=== PATIENT | male | born 1970 | race Caucasian/White ===

== ENCOUNTER 2017-08-07 23:31 | Observation (INO) ==
[2017-08-07] MEDS ORDERED: Nitroglycerin 0.4 MG TAB.SUBL SL ONE (23:32)
[2017-08-07] MEDS ORDERED: Aspirin 81 MG TAB.CHEW PO ONE (23:32)
[2017-08-07 23:56] LABS: Basophils % 0.3 %; Eosinophils # 0.1 K/mcL (0.0-0.6); Eosinophils % 0.6 %; Hemoglobin 16.5 g/dL (12.9-16.9); Immature Granulocytes % 0.4 % (0-4); Lymphocytes # 2.5 K/mcL (0.6-4.6); Lymphocytes % 31.7 %; Mean Corpuscular HGB Conc 34.4 g/dL (31.6-35.5); Mean Corpuscular Hemoglobin 28.4 pg (28.0-33.3); Mean Corpuscular Volume 82.8 fL (83.0-100.0); Mean Platelet Volume 10.9 fL (9.4-12.4); Monocytes # 0.4 K/mcL (0.0-1.3); Monocytes % 5.2 %; Neutrophils # 4.8 K/mcL (1.6-8.9); Platelet Count 202 K/mcL (140-400); Red Cell Distribution Width 12.8 % (11.5-14.5); Segmented Neutrophils % 61.8 %
[2017-08-08 00:02] LABS: INR 1.1; Prothrombin Time 12.4 Seconds (9.4-12.1)
[2017-08-08 00:05] LABS: Activated Partial Thrombo Time 27.6 Seconds (26.0-36.0)
[2017-08-08 00:22] LABS: Alanine Aminotransferase 35 Units/L (0-55); Albumin 3.8 g/dL (3.5-5.0); Albumin/Globulin Ratio 1.1 (1.1-2.2); Alkaline Phosphatase 118 Units/L (38-126); Aspartate Amino Transferase 23 Units/L (5-34); BUN/Creatinine Ratio 18 (6-26); Bilirubin,Direct 0.3 mg/dL (0.0-0.5); Bilirubin,Indirect 0.5 mg/dL (0.0-1.2); Bilirubin,Total 0.8 mg/dL (0.2-1.2); Blood Urea Nitrogen 19 mg/dL (8-26); Calcium 9.3 mg/dL (8.6-10.8); Carbon Dioxide 21 mEq/L (19-29); Chloride 103 mEq/L (98-109); Globulin 3.6 g/dL (2.4-3.5); Glucose 278 mg/dL (70-99); Lipase 13 Units/L (8-78); Osmolality,Calculated 294 (280-300); Sodium 136 mEq/L (136-145); Total Protein 7.4 g/dL (6.0-8.3); eGFR For African Americans > 60 (> 60); eGFR For Non-African Americans > 60 (> 60)
--- NOTE | 2017-08-08 00:25 | Emergency Department Note ---
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 Denies: nausea, vomiting , diaphoresis, dyspnea, sense of impending doom, syncope, palpitations, fever, cough, leg swelling Treatments prior to arrival chest pain: aspirin (per EMS) - Related Data Allergies Allergy/AdvReac Type Severity Reaction Status Date / Time Cyclobenzaprine Allergy Hallucinati Verified 08/08/17 00:15 [From Flexeril] ng Penicillins Allergy See Verified 08/08/17 00:15 Comments All systems ED: reviewed and negative except as stated. Review of Systems: As Per HPI Constitutional: Denies: fever, chills, weakness, weight change, night sweats Eyes: Denies: eye pain, eye discharge, vision change ENT ED: Denies: ear pain, throat pain, congestion, dysphagia Cardiovascular: Reports: as per HPI, chest pain. Denies: palpitations, dyspnea on exertion, orthopnea, edema, syncope Respiratory: Denies: cough, dyspnea, wheezes Gastrointestinal: Denies: abdominal pain, nausea, vomiting Musculoskeletal: Denies: back pain, neck pain, joint swelling Neurological: Denies: headache, weakness, numbness, paresthesias, confusion, abnormal gait, vertigo Hematological/Lymphatic: Denies: easy bleeding, easy bruising, lymphadenopathy Chest Pain PMH - Past Medical History Medical history: Reports: diabetes, hyperlipidemia Surgical history: Reports: no surgical history Psychiatric history: Reports: no psych history Prior Cardiac Testing/Procedures: Stress Test (10 years ago) - Social History Smoking Status: Never smoker Smokeless Tobacco Status: No Drug use: Reports: none Physical Exam - General Limitations: no limitations General appearance: alert, in no apparent distress - Head Head exam: atraumatic, normocephalic, normal inspection - Eye Eye exam: Present: normal appearance, PERRL. Absent: scleral icterus, conjunctival injection, periorbital swelling - ENT ENT exam: mucous membranes moist - Neck Neck exam: Present: normal inspection, full ROM, trachea midline. Absent: meningismus - Chest Chest inspection: Present: normal inspection - Respiratory Respiratory exam: Present: normal lung sounds bilaterally. Absent: respiratory distress, wheezes, stridor, accessory muscle use - Cardiovascular Cardiovascular exam: Present: regular rate, normal rhythm, normal heart sounds - Abdominal Exam Abdominal exam: Present: soft, Non-Tender. Absent: tenderness, distention, guarding, rebound, rigidity, organomegaly, Maldonado's sign, tenderness at McBurney 's Point, mass, pulsatile mass - Extremities Exam Extremities exam: Present: normal inspection, full ROM, normal capillary refill. Absent: tenderness, pedal edema, joint swelling - Back Exam Back exam: Present: normal inspection - Neurological Exam Neurological exam: Present: alert, oriented X3, CN II-XII intact, normal gait - Psychiatric Psychiatric exam: Present: normal affect, normal mood - Skin Skin exam: Present: warm, dry, intact, normal color Course - Reevaluation(s) Reevaluation #1: pain is better "/" patient refused second NTG b/c BP 110 systolic. Time: 00:43 Vital Signs Pulse Rate 89 08/08/17 00:18 Respiratory Rate 16 08/08/17 00:18 Blood Pressure 113/81 08/08/17 00:18 O2 Sat by Pulse Oximetry 95 08/08/17 00:18 Temperature 97.5 F L 08/08/17 02:32 Pulse Rate 82 08/08/17 02:32 Respiratory Rate 12 08/08/17 02:32 Blood Pressure 111/75 08/08/17 02:32 O2 Sat by Pulse Oximetry 95 08/08/17 02:32 Oxygen Delivery Oxygen Delivery Room Air Chest Pain - Medical Records Medical records reviewed: Yes I reviewed the patient's medical records. - Lab Data Lab results reviewed: Yes I reviewed the patient's lab results. Lab results narrative: Laboratory Last Values WBC 7.7 K/mcL (4.3-11.1) 08/07/17 23:44 RBC 5.80 M/mcL (4.19-5.50) H 08/07/17 23:44 Hgb 16.5 g/dL (12.9-16.9) 08/07/17 23:44 Hct 48.0 % (37.5-50.1) 08/07/17 23:44 MCV 82.8 fL (83.0-100.0) L 08/07/17 23:44 MCH 28.4 pg (28.0-33.3) 08/07/17 23:44 MCHC 34.4 g/dL (31.6-35.5) 08/07/17 23:44 RDW 12.8 % (11.5-14.5) 08/07/17 23:44 Plt Count 202 K/mcL (140-400) 08/07/17 23:44 MPV 10.9 fL (9.4-12.4) 08/07/17 23:44 Immature Gran % 0.4 % (0-4) 08/07/17 23:44 Seg Neutrophils % 61.8 % 08/07/17 23:44 Lymphocytes % 31.7 % 08/07/17 23:44 Monocytes % 5.2 % 08/07/17 23:44 Eosinophils % 0.6 % 08/07/17 23:44 Basophils % 0.3 % 08/07/17 23:44 Neutrophils # 4.8 K/mcL (1.6-8.9) 08/07/17 23:44 Lymphocytes # 2.5 K/mcL (0.6-4.6) 08/07/17 23:44 Monocytes # 0.4 K/mcL (0.0-1.3) 08/07/17 23:44 Eosinophils # 0.1 K/mcL (0.0-0.6) 08/07/17 23:44 Basophils # 0.0 K/mcL (0.0-0.2) 08/07/17 23:44 PT 12.4 Seconds (9.4-12.1) H 08/07/17 23:44 INR 1.1 08/07/17 23:44 APTT 27.6 Seconds (26.0-36.0) 08/07/17 23:44 Sodium 136 mEq/L (136-145) 08/07/17 23:44 Potassium 4.0 mEq/L (3.5-4.5) 08/07/17 23:44 Chloride 103 mEq/L (98-109) 08/07/17 23:44 Carbon Dioxide 21 mEq/L (19-29) 08/07/17 23:44 BUN 19 mg/dL (8-26) 08/07/17 23:44 Creatinine 1.06 mg/dL (0.72-1.25) 08/07/17 23:44 Est GFR ( Amer) > 60 (> 60) 08/07/17 23:44 Est GFR (Non-Af Amer) > 60 (> 60) 08/07/17 23:44 BUN/Creatinine Ratio 18 (6-26) 08/07/17 23:44 Glucose 278 mg/dL (70-99) H 08/07/17 23:44 POC Glucose 242 (58-89) H 08/08/17 02:36 Calculated Osmolality 294 (280-300) 08/07/17 23:44 Calcium 9.3 mg/dL (8.6-10.8) 08/07/17 23:44 Total Bilirubin 0.8 mg/dL (0.2-1.2) 08/07/17 23:44 Direct Bilirubin 0.3 mg/dL (0.0-0.5) 08/07/17 23:44 Indirect Bilirubin 0.5 mg/dL (0.0-1.2) 08/07/17 23:44 AST 23 Units/L (5-34) 08/07/17 23:44 ALT 35 Units/L (0-55) 08/07/17 23:44 Alkaline Phosphatase 118 Units/L (38-126) 08/07/17 23:44 Troponin I 0.00 ng/mL (0-0.03) 08/07/17 23:44 Serum Total Protein 7.4 g/dL (6.0-8.3) 08/07/17 23:44 Albumin 3.8 g/dL (3.5-5.0) 08/07/17 23:44 Globulin 3.6 g/dL (2.4-3.5) H 08/07/17 23:44 Albumin/Globulin Ratio 1.1 (1.1-2.2) 08/07/17 23:44 Lipase 13 Units/L (8-78) 08/07/17 23:44 Result diagrams: 08/07/17 23:44 08/07/17 23:44 Lab Results 08/07/17 08/07/17 08/07/17 Range/Units 23:44 23:44 23:44 WBC 7.7 (4.3-11.1) K/mcL RBC 5.80 H (4.19-5.50) M/mcL Hgb 16.5 (12.9-16.9) g/dL Hct 48.0 (37.5-50.1) % MCV 82.8 L (83.0-100.0) fL MCH 28.4 (28.0-33.3) pg MCHC 34.4 (31.6-35.5) g/dL RDW 12.8 (11.5-14.5) % Plt Count 202 (140-400) K/mcL MPV 10.9 (9.4-12.4) fL Immature Gran % 0.4 (0-4) % Seg Neutrophils % 61.8 % Lymphocytes % 31.7 % Monocytes % 5.2 % Eosinophils % 0.6 % Basophils % 0.3 % Neutrophils # 4.8 (1.6-8.9) K/mcL Lymphocytes # 2.5 (0.6-4.6) K/mcL Monocytes # 0.4 (0.0-1.3) K/mcL Eosinophils # 0.1 (0.0-0.6) K/mcL Basophils # 0.0 (0.0-0.2) K/mcL PT 12.4 H (9.4-12.1) Seconds INR 1.1 APTT 27.6 (26.0-36.0) Seconds Sodium 136 (136-145) mEq/L Potassium 4.0 (3.5-4.5) mEq/L Chloride 103 (98-109) mEq/L Carbon Dioxide 21 (19-29) mEq/L BUN 19 (8-26) mg/dL Creatinine 1.06 (0.72-1.25) mg/dL Est GFR ( Amer) > 60 (> 60) Est GFR (Non-Af Amer) > 60 (> 60) BUN/Creatinine Ratio 18 (6-26) Glucose 278 H (70-99) mg/dL Calculated Osmolality 294 (280-300) Calcium 9.3 (8.6-10.8) mg/dL Total Bilirubin 0.8 (0.2-1.2) mg/dL Direct Bilirubin 0.3 (0.0-0.5) mg/dL Indirect Bilirubin 0.5 (0.0-1.2) mg/dL AST 23 (5-34) Units/L ALT 35 (0-55) Units/L Alkaline Phosphatase 118 (38-126) Units/L Troponin I (0-0.03) ng/mL Serum Total Protein 7.4 (6.0-8.3) g/dL Albumin 3.8 (3.5-5.0) g/dL Globulin 3.6 H (2.4-3.5) g/dL Albumin/Globulin Ratio 1.1 (1.1-2.2) Lipase 13 (8-78) Units/L // Range/Units 23:44 WBC (4.3-11.1) K/mcL RBC (4.19-5.50) M/mcL Hgb (12.9-16.9) g/dL Hct (37.5-50.1) % MCV (83.0-100.0) fL MCH (28.0-33.3) pg MCHC (31.6-35.5) g/dL RDW (11.5-14.5) % Plt Count (140-400) K/mcL MPV (9.4-12.4) fL Immature Gran % (0-4) % Seg Neutrophils % % Lymphocytes % % Monocytes % % Eosinophils % % Basophils % % Neutrophils # (1.6-8.9) K/mcL Lymphocytes # (0.6-4.6) K/mcL Monocytes # (0.0-1.3) K/mcL Eosinophils # (0.0-0.6) K/mcL Basophils # (0.0-0.2) K/mcL PT (9.4-12.1) Seconds INR APTT (26.0-36.0) Seconds Sodium (136-145) mEq/L Potassium (3.5-4.5) mEq/L Chloride (98-109) mEq/L Carbon Dioxide (19-29) mEq/L BUN (8-26) mg/dL Creatinine (0.72-1.25) mg/dL Est GFR ( Amer) (> 60) Est GFR (Non-Af Amer) (> 60) BUN/Creatinine Ratio (6-26) Glucose (70-99) mg/dL Calculated Osmolality (280-300) Calcium (8.6-10.8) mg/dL Total Bilirubin (0.2-1.2) mg/dL Direct Bilirubin (0.0-0.5) mg/dL Indirect Bilirubin (0.0-1.2) mg/dL AST (5-34) Units/L ALT (0-55) Units/L Alkaline Phosphatase (38-126) Units/L Troponin I 0.00 (0-0.03) ng/mL Serum Total Protein (6.0-8.3) g/dL Albumin (3.5-5.0) g/dL Globulin (2.4-3.5) g/dL Albumin/Globulin Ratio (1.1-2.2) Lipase (8-78) Units/L - Radiology Data Radiology results reviewed: Yes I reviewed the patient's radiology results. Chest X-Ray 08/07/17 23:32 IMPRESSION: 1. No acute cardiopulmonary disease. D/ / Alfonso Eaton MD / Alfonso Eaton MD Interpreting Provider: Alfonso Eaton MD Heart Score - Score History: Moderately Suspicious EKG: Non Specific repolarisation Disturbance Age: 45-65 Risk Factors: 1-2 risk factors Troponin: Less than normal limit HEART Score Total: 4 Attestation Statement - Attestation Attestation: I, Matias Peters MD, personally evaluated this patient and discussed their management with the midlevel provicer, PAC/PROJECT PRODUCT MANAGER. I reviewed the midlevel provider 's note and agree with the documented findings, medical decision making, and plan of care. 47-year-old male presents to the emergency department with a complaint of mid substernal chest pain which started earlier this evening while at work. 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 No radiation of the pain. Some nausea with the pain. Some shortness of breath and mild diaphoresis. No history of heart disease but patient is not diabetic. No history of hypertension or hyperlipidemia. On examination patient is a well-developed obese male in no acute distress. He is alert and oriented 3. There is no cyanosis or diaphoresis. There is some tenderness to palpation over the mid anterior chest wall. Breath sounds are clear and equal bilaterally. Heart regular rate and rhythm. Abdomen soft and nontender with normal bowel sounds. No pedal edema. Labs reviewed. Troponin negative. EKG shows a normal sinus rhythm with no acute ischemic changes. Chest x-ray negative. The hospitalist, Dr. Garcia, was consulted and accepted admission of the patient.
[2017-08-08] MEDS ORDERED: *HR* Enoxaparin 120 MG/0.8 ML SYRINGE SQ ONE (01:34)
--- NOTE | 2017-08-08 01:40 | Internal Med History&Physical ---
Date of Encounter: 08/08/17 Time of Encounter: 01:36 Assessment and Plan (1) Diabetes mellitus type 2 in obese Current visit: Yes Status: Acute Sliding scale insulin. Check hemaglobin A1C (2) Chest pain Current visit: Yes Status: Acute Electrocardiogram shows Q waves in inferior leads but no ST segment shifts. Will check serial cardiac markers. Cardiology service to see the patient. Qualifiers: Chest pain type: precordial pain Qualified Code(s): R07.2 - Precordial pain Internal Medicine - H&P: HPI Chief complaint: chest pain History of present illness: Mr. Wood is a 47 year old male who was morbidly obese with a body mass index of 40 kg/m, diabetes mellitus type II on insulin since the age of 32, presents to the emergency room today with a couple of chest pain. Since approximately 11 PM patient started experiencing retrosternal chest pain described as having the sensation pain was nonirritating. He felt lightheaded during the pain. He took sublingual nitroglycerin with notable improvement in the pain. He was still having 2 out of 10 pain during my interview. No prior similar episodes. No known coronary artery disease. He does not smoke and does not have a family history of premature coronary or she is using first-degree relatives Past Med Surg Social Fam HX - Past Medical History Medical history: diabetes, hyperlipidemia Psychiatric history: no psych history - Social History Smoking Status: Never smoker Alcohol use: none Drug use: none Internal Medicine - H&P: Meds 3 Allergy/AdvReac Type Severity Reaction Status Date / Time Cyclobenzaprine Allergy Hallucinati Verified 08/08/17 00:15 [From Flexeril] ng Penicillins Allergy See Verified 08/08/17 00:15 Comments All Systems PM: A 10-system review of systems was performed and is negative for pertinent findings except as documented above in the HPI. Review of systems: 10 point review of systems is negative except for HPI - Constitutional Vitals: Temp Pulse Resp BP Pulse Ox 98.3 F 78 16 111/70 96 08/08/17 00:28 08/08/17 00:56 08/08/17 00:56 08/08/17 00:56 08/08/17 00:56 Exam: Gen.: patient is alert oriented times 3 not in distress. Cardiac: normal S1 S2 no additional sounds or murmurs chest: fair air entry. no active wheezing. No crackles or bronchial breathing. abdomen: soft nontender nondistended normal bowel sounds neuro: no focal deficit Internal Med - H&P Results - Labs CBC & Chem 7: 08/07/17 23:44 08/07/17 23:44
[2017-08-08] MEDS ORDERED: *HR* Enoxaparin 40 MG/0.4 ML SYRINGE SQ SCH (06:00)
[2017-08-08] MEDS: Insulin LISPRO 300 UNITS/3 ML VIAL SQ SCH ×3 (07:54→17:15)
[2017-08-08] MEDS: Aspirin 325 MG TABLET PO SCH (07:56)
[2017-08-08] MEDS ORDERED: Regadenoson 0.4 MG/5 ML SYRINGE IVP ONE (09:22)
--- NOTE | 2017-08-08 10:53 | Internal Med Progress Note ---
Date of Encounter: 08/08/17 Time of Encounter: 08:50 - Assessment and plan (1) Chest pain Current Visit: Yes Status: Acute Assessment and plan: Pt reports sudden onset left chest pain last night at 2300 after using the bathroom. Pain was sharp, did not radiate. Pt denies SOB, nausea, or diaphoresis. Pain lasted approximately 1 hour and was relieved by NTG in the ED. Pt still reports 2/10 chest pain currently. Pain is reproducible with palpation and deep inspiration. 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 troponins negative, chest xray negative. Pt is a 2 day stress. Continue telemetry Stress today, complete tomorrow ASA, ntg for pain. Lipid pain in the a.m. Qualifiers: Chest pain type: precordial pain Qualified Code(s): R07.2 - Precordial pain (2) Diabetes mellitus type 2 in obese Current Visit: Yes Status: Chronic Assessment and plan: Continue SSI, diabetic diet, and accuchecks ac/hs. A1c 9.5% in December,. Will reorder for the a.m. (3) Obesity (BMI 30-39.9) Current Visit: Yes Status: Chronic Assessment and plan: Chronic. Lifestyle modifications. (4) DVT prophylaxis Current Visit: Yes Status: Acute Assessment and plan: Lovenox sQ - Time Spent With Patient less than 15 minutes - Subjective Interval history: Pt was seen and assessed at 0850 this a.m. He was drowsy and easy to arouse, briefly. Pt has 2/10 chest pain at this time that is reproducible with palpation and deep inspiration. He denies sob, nausea, diaphoresis, headache, v/ d, abdominal pain or neck stiffness. Denies recent cough or cold symptoms or sick contacts. Denies change in physical routine. - Constitutional Vitals: Temp Pulse Resp BP Pulse Ox 98.3 F 66 15 130/84 92 08/08/17 07:42 08/08/17 07:42 08/08/17 07:42 08/08/17 07:42 08/08/17 07:42 General appearance: Present: A&O X 3, pleasant, no acute distress, answers questions appropriately - Head Head exam: Present: atraumatic, normal inspection, normocephalic - Eye Eye exam: Present: normal appearance, conjuntiva pink, sclera anicteric - ENT ENT exam: Present: mucous membranes moist, normal exam, normal external ear exam - Neck Neck exam general surgery: Present: supple, trachea midline. Absent: lymphadenopathy - Respiratory Respiratory exam: Present: chest wall tenderness, CTAB. Absent: accessory muscle use, decreased breath sounds, rales, rhonchi, wheezes - Cardiovascular Cardiovascular exam: Present: RRR, +S1, +S2. Absent: diastolic murmur, gallop, rubs, systolic murmur - GI/Abdominal GI/Abdominal exam: Present: distended, normal bowel sounds, soft. Absent: tenderness - Extremities Exam Extremities exam: Present: warm, radial pulses palpable and symmetrical. Absent : calf tenderness, cyanotic, pedal edema - Neurological Exam Neurological exam: Present: alert, oriented X3, no focal deficits. Absent: facial droop, speech deficit - Skin Skin exam: Present: dry, intact, normal color, warm. Absent: rash Internal Medicine: Result - Labs CBC & Chem 7: 08/07/17 23:44 08/07/17 23:44 Labs: Cardiac Enzymes 08/08/17 Range/Units 05:36 Troponin I 0.00 (0-0.03) ng/mL - ABG Interpretation ABG results: PT/INR, D-dimer PT 12.4 Seconds (9.4-12.1) H 08/07/17 23:44 Consult Discharge Plan - Plan Referrals: Monse Spaulding DO [Primary Care Provider] -
--- NOTE | 2017-08-08 19:16 | Electrocardiograph Report ---
[address] [place] [address] Test Date: 2017-08-07 Pat Name: Archie Wood Department: 103 Room: 3B22 Gender: M Automated Access Systems Technician: : 1970 Requested By: Katherine Ortiz Order Number: [id number] Reading MD: Alo Theodore MD Measurements Intervals [place] Rate: 97 P: 21 OR: 137 QRS: -24 QRSD: 104 T: 17 QT: 321 QTc: 375 Interpretive Statements SINUS RHYTHM Poor R wave progression INFERIOR MYOCARDIAL INFARCTION, PROBABLY OLD Electronically Signed On 08-08-2017 19:15:23 EDT by Alo Theodore MD
[2017-08-09 04:06] LABS: Hemoglobin A1C 10.6 %
[2017-08-09] MEDS: Insulin LISPRO 300 UNITS/3 ML VIAL SQ SCH ×3 (07:53→16:19)
[2017-08-09] MEDS: Aspirin 325 MG TABLET PO SCH (07:53)
--- NOTE | 2017-08-09 09:24 | Nuclear Medicine Stress Report ---
Regadenoson Nuclear 2 day Name: Archie Wood Date of Study: 08/08/2017 Date: 1970 Ht: 69.0 in Medical Record#: [id number] Age: 47 Wt: 265.0 lb Gender: Male Order #: [id number] Location: [facility] Room: [facility] Supervising Provider: Karina Llamas CNP Reading Physician: Erin Borjas DO Ordering Physician: Dipika Mcdonald CNP Stress Technologist: Ambika Oquendo [employer] TE[employer], [employer] Age Lead Teacher: Sowmya Aguirre Indications: Chest Pain Impression: Basal-mid inferior and inferolateral wall infarct with significant shani-infarct ischemia. Pharmacologic ECG was negative for ischemia at the level of heart rate achieved. Gated EF = 54%. There is evidence of TID. Abnormal findings communicated to ordering provider. History: Hypertension Diabetes Stress Test Summary: Stress Test Type: Pharmacologic Regadenoson 0.4mg/5ml given IV Baseline Information: Initial Heart Rate: 80 Blood Pressure: 142/90 Stress Information: Test Terminated Due to (primary): As per protocol Maximum Blood Pressure: 146/88 Maximum Heart Rate: 93 Percent Maximum Heart Rate Achieved: 53 Double Product: [id number] METS Reached: 1 Symptoms: No chest symptoms Nuclear Summary: SPECT myocardial perfusion imaging using Tc99m Sestamibi given intravenously was performed at rest and following cardiac stress testing. The resting images were obtained following initial dose of 34.5 mCi. Following stress an additional dose of 35.5 mCi was given at peak exercise or 30 seconds post regadenoson infusion. Medication Given: Time Medication Dose Units Route Findings: Stress Note * Resting ECG demonstrated normal sinus rhythm with leftward axis and poor R wave progression with possible old inferior OH. * No appreciable change in pharmacologic ECG during stress. * Rare PACs noted during stress. * Patient had no chest pain during stress. Hemodynamic responses * Normal hemodynamic responses to pharmacologic stress. Study Quality * Study performance quality is good. Image quality is technically challenging. Gated EF % * Gated EF = 54%. Left Ventricle * The left ventricle is not dilated. TID * There is transient ischemic dilatation. Lung Uptake * There is no evidence of increase lung uptake. PERFUSION * There is a moderate intensity resting perfusion defect involving the basal inferior and inferolateral de la cruz with mild intensity in the mid inferior and inferolateral de la cruz. During stress, there is a moderate-severe intensity perfusion defect involving the basal to distal inferior and inferolateral de la cruz. Wall motion is abnormal in this area. Findings represent infarct with shani-infarct ischemia. * Other segments demonstrate normal rest and stress perfusion. Updated by Erin Borjas on 08/09/2017 9:12:38 AM electronically signed on 08/09/2017 9:18:04 AM with status of Final
--- NOTE | 2017-08-09 11:24 | Cardiology Consult Note ---
Date of Encounter: 08/09/17 Time of Encounter: 11:20 Assessment and Plan (1) Abnormal stress test Current Visit: Yes Status: Acute Stress test reviewed with patient. Stress shows prior basal- mid inferolateral wall infarct with significant shani-infarct ischemia. There was evidence of TID. EKG shows NSR with prior inferior and anterior infarct. Patient denies history of CAD. No prior evaluation. Describes intermittent chest pain over the past year. Cardiac risk factors include IDDM, HLD, and obesity. [facility] R/B/A discussed and he agrees to proceed. (2) Chest pain Current Visit: Yes Status: Acute See plan above. Qualifiers: Chest pain type: unspecified Qualified Code(s): R07.9 - Chest pain, unspecified (3) Diabetes mellitus type 2 in obese Current Visit: Yes Status: Chronic Hospitalist following. Discussion w patient/family: The assessment and plan as outlined above was discussed with the patient and/or family members who expressed understanding and agreement. All questions were answered. Thank you for involving us in the care of your patient. Please call with any questions. History of Present Illness Consult date: 08/09/17 Requesting physician: Dipika Mcdonald Consult reason: Chest pain, abnormal stress Chief complaint: Chest pain History of present illness: Mr. Wood is a 47 year old male with a history of DM type II, HLD, and obesity who presented from his work with mid sternal non radiating chest pain and dizziness. 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 He was walking down a hallway when his symptoms started. He reports having pain intermittently all weekend. Prior to that he reports intermittent chest pain November through January of this year. He attributed it to bronchitis that would not go away. 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 His initial work-up included troponin that was negative. EKG showed SR, prior anterior/ inferior infarct. There was no acute ST changes. He underwent two day stress test that was found to be abnormal. Cardiology consulted for abnormal stress test. He denies prior cardiac history. Past Med Surg Social Fam HX - Past Medical History Medical history: diabetes, hyperlipidemia Psychiatric history: no psych history - Past Surgical History Surgical History: no surgical history - Social History Smoking Status: Never smoker Smokeless Tobacco Status: No Alcohol use: none Drug use: none - Family History Mother Living Status: Still Living Medications and Allergies No Known Home Drugs 08/09/17 [History] 3 Allergy/AdvReac Type Severity Reaction Status Date / Time Cyclobenzaprine Allergy Hallucinati Verified 08/08/17 00:15 [From Flexeril] ng Penicillins Allergy See Verified 08/08/17 00:15 Comments All Systems Review: A 10-system review of systems was performed and is negative for pertinent findings except as documented above in the HPI. Physical Examination Chest X-Ray 08/07/17 23:32 IMPRESSION: 1. No acute cardiopulmonary disease. D/ / Alfonso Eaton MD / Alfonso Eaton MD Interpreting Provider: Alfonso Eaton MD Vital Signs Temp Pulse Resp BP Pulse Ox 08/09/17 11:26 98.2 F 86 16 155/97 95 08/09/17 06:43 98.1 F 70 16 131/84 94 08/09/17 04:11 98 F 61 16 109/70 96 08/09/17 00:14 98 F 70 16 129/80 96 08/08/17 19:03 98.2 F 76 16 129/81 94 08/08/17 16:21 98.0 F 70 16 115/70 97 Intake and Output 08/08/17 08/09/17 08/09/17 23:59 07:59 15:59 Intake Total 240 / 240 Balance 240 / 240 Intake: Oral 240 / 240 Other: Meal Breakfast Percent of Meal Consumed 100% # Voids 1 Weight 121.563 kg Blood Glucose* 170 217 268 Patient Weight 08/09/17 23:59 Weight 121.563 kg General: Conversant, No Apparent Distress HEENT: Atraumatic, Normocephaly, Mucus Membranes Moist Neck: No JVD, Normal carotid pulses Cardiac: Reg Rate and Rhythm, Normal S1 and S2, No Murmur Lungs: Normal Breath Sounds, No Wheeze, Rales, Rhonchi Neuro: Alert and responsive, No focal deficits noted Abdomen: Soft, Non-Tender Skin: No rashes noted on visualized skin Musculoskeletal: No Chest Wall Tenderness Extremities: No Clubbing, No Cyanosis, No Edema, Normal Pulses Results 08/07/17 23:44 08/07/17 23:44 Lab Results 08/08/17 11:58 Troponin I 0.01 - Imaging and Cardiology Stress Test: report reviewed Consult Discharge Plan - Plan Referrals: Monse Spaulding DO [Primary Care Provider] -
--- NOTE | 2017-08-09 11:29 | Pre-Sedation Evaluation ---
Pre-sedation evaluation - Pre-sedation checklist Date of procedure: 08/09/17 Procedure: [facility] Recent Vitals: Last Vital Signs Temp 98.1 F 08/09/17 06:43 Pulse 70 08/09/17 06:43 Resp 16 08/09/17 06:43 BP 131/84 08/09/17 06:43 Pulse Ox 94 08/09/17 06:43 H&P (including ROS) documented in medical record: Yes Previous reaction to sedatives/anesthetics: No Dietary Status: NPO after Midnight Airway Assessment: Patient can open mouth completely, TMJ function normal ASA Classification *see protocol: CLASS II-Mild systemic disease Plan of Care: Pt appropriate candidate for procedure/moderate/conscious sedation , Risks/benefits of procedure/sedation discussed w/ patient/family
[2017-08-09] MEDS ORDERED: Heparin 1,000 UNITS/500 mL NS 500 ML ONE (13:10)
[2017-08-09] MEDS ORDERED: 0.9 % Sodium Chloride 1,000 ML ONE ×2 (13:10→13:45)
[2017-08-09] MEDS ORDERED: Nitroglycerin 1,000 MCG/10 ML VIAL IV ONE (13:11)
[2017-08-09] MEDS ORDERED: *HR* Heparin 10,000 UNIT/10 ML VIAL ONE (13:11)
[2017-08-09] MEDS ORDERED: *HR* FentaNYL (PF) 100 MCG/2 ML VIAL ONE (13:57)
[2017-08-09] MEDS ORDERED: *HR* Midazolam HCl 2 MG/2 ML VIAL ONE ×2 (13:57→14:19)
--- NOTE | 2017-08-09 14:48 | Invasive Diagnostic Lab Proc ---
Name: Archie Wood Date of Study: 08/09/2017 Date: 1970 Ht: 68.9in Medical Record#: [id number] Age: 47 Wt: 266.54lb Gender: Male BSA: 2.33 Order #: [id number] BMI: 39.48 Physicians Procedure Physician: Alo Theodore MD, [facility] Referring MD: Monse Spaulding DO Referring MD: Staff Name Position Time In Marine Brennan RT (R) Scrub 01:18 PM Denise Waterman RN Practicing Urologist 01:18 PM Susana Aguirre RN Practicing Urologist 01:19 PM Jas Acosta RT (R) Monitor 01:19 PM Indications Indication Abnormal Test - Stress Procedures Performed Procedure L HRT ARTERY/VENTRICLE ANGIO Pre-Procedure Checklist Informed consent is complete signed and on chart. H&P is on chart. ID band is on and ID verified with patient. Patient NPO for procedure The procedure was described for the patient and questions were answered. Blood Pressure: 131/84 ECG is on chart. Rhythm: NSR Plan of Care Patient will tolerate the procedure without complications. Adequate level of comfort will be maintained. Hemodynamics will remain stable Patient will recover from procedure without complications. Respiratory function will be maintained. Cardiac rhythm will remain stable. Patient temperature will be maintained. Patient and/or family have verbalized understanding of the procedure. Patient Education Chief Complaint/Reason for Test: Cardiac Cath Developmental Category: Adult (18-64 years) Developmentally Appropriate for Age: Yes Learning Barriers: None Education Needs: Procedure Education Method: Verbal Information Taught: Cardiac Cath Educational Evaluation: Able to repeat information Intravenous Access Time IV Size Location DC'd Fluid/Drip Rate Units RN 01:55 PM 18g 1 11/11" Patent On Arrival Left forearm 0.9NaCl 25 ml/hr Susana Aguirre RN Allergies Cyclobenzaprine Bupropion Penicillins Vital Signs Time BP (mmHg) HR (bpm) O2 Sat. RR (bpm) LOC 01:55 PM 131 / 84 70 95 % 16 5 = Fully awake and oriented or at pre-proc level 01:42 PM / % 5 = Fully awake and oriented or at pre-proc level 01:42 PM / % 4 = Oriented but drowsy 01:58 PM / % 4 = Oriented but drowsy 02:15 PM / % 4 = Oriented but drowsy 01:56 PM 165 / 88 74 96 % 18 02:00 PM 150 / 105 83 95 % 20 02:04 PM 142 / 83 74 94 % 14 02:09 PM 125 / 82 74 91 % 17 02:14 PM 121 / 80 67 93 % 16 02:19 PM 130 / 75 66 94 % 19 02:24 PM 118 / 75 74 93 % 18 02:29 PM 117 / 78 71 92 % 20 02:34 PM 125 / 74 68 94 % Procedural Medications Time Medication Dose Units Method Given By 01:58 PM Versed 2 mg Intravenous Denise Waterman RN 01:58 PM Fentanyl 50 mcg Intravenous Denise Waterman RN 01:58 PM Oxygen 2 L/min nasal cannula Denise Waterman RN 02:08 PM Oxygen 4 L/min nasal cannula Denise Waterman RN 02:17 PM Lidocaine 2% 20 ml Subcutaneous Alo Theodore MD, FACC 02:20 PM Versed 1 mg Intravenous Denise Waterman RN ASA Classification: CLASS II- Mild systemic disease (i.e. well-controlled diabetes, hypertension, asthma, cigarette smoking) Missael Score Preprocedure Postprocedure Activity 2- Moves 4 extremities sustained head lift Activity Circulation 2- SBP +/= 20 points of pre-anesthetic level Circulation Consciousness 2- Awake and alert oriented x 3 Consciousness O2 Saturation 2- Able to maintain O2 satruation of 92% on room air O2 Saturation Respiratory 2- Able to deep breathe and cough well Respiratory Total Score 10 Total Score Contrast Agent: Isovue Diagnostic Contrast: 75 ml Total Contrast: 75 ml Fluoro Dose: 312 mGy Procedure Log Time Note Enter By 01:18 PM Marine Brennan RT (R) Position: Scrub Time in: 13:18 01:19 PM Denise Waterman RN Position: Practicing Urologist Time in: 13:18 01:19 PM Susana Aguirre RN Position: Practicing Urologist Time in: 13:19 01:19 PM Jas Acosta RT (R) Position: Monitor Time in: 13:19 01:41 PM Clinical Presentation: Non-STEMI 01:42 PM 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 [email or web address] 01:49 PM Physician arrived 13:49 [email or web address] :50 PM Meet and greet completed :50 PM Sign in performed according to hospital policy. [email or web address] 01:50 PM Procedure start 13:50 [email or web address] :50 PM ASA Class CLASS II- Mild systemic disease (i.e. well-controlled diabetes, hypertension, asthma, cigarette smoking) [email or web address] 09:54 PM Vitals capture started with the following parameters, Patient=Adult, Interval=5 min, Initial Wxheeuta=294 mmHg, Deflation Rate=5 mmHg, Cuff placed on Left Arm 01:54 PM Recorded ECG: HR=73 Condition=Condition 1 01:56 PM Hair removed from procedure site in procedure lab using clippers. Bilateral groin prepped with Chloraprep by Marine Brennan (R), safety strap applied then patient was draped. Skin intact. :56 PM HR=74 bpm, XGJD=978/88 mmhg, SpO2=96.0 %, Resp=18 B/min, Comment=nsr :58 PM Time: 13:42LOC: 4 = Oriented but drowsy :58 PM Time: 13:42 Patient comfortable and pain free: Yes 58 PM Time: 13:58 Versed 2 mg Intravenous Given by Denise Waterman RN 58 PM Time: 13:58 Fentanyl 50 mcg Intravenous Given by Denise Waterman RN 58 PM Time: 13:58 Oxygen on at 2 L/min per nasal cannula by Denise Waterman RN 02:00 PM HR=83 bpm, AFTU=937/105 mmhg, SpO2=95.0 %, Resp=20 B/min, Comment=nsr 02:01 PM Pressure channel 3 zeroed. 02:03 PM Vitals capture stopped. 02:03 PM Vitals capture started with the following parameters, Patient=Adult, Interval=5 min, Initial Rpmxcqpf=622 mmHg, Deflation Rate=5 mmHg, Cuff placed on Left Arm 02:04 PM HR=74 bpm, TIFU=104/83 mmhg, SpO2=94.0 %, Resp=14 B/min, Comment=nsr 02:08 PM Time: 14:08 Oxygen on at 4 L/min per nasal cannula by Denise Waterman RN 02:09 PM HR=74 bpm, XSUK=155/82 mmhg, SpO2=91.0 %, Resp=17 B/min, Comment=nsr 02:14 PM HR=67 bpm, EFMP=285/80 mmhg, SpO2=93.0 %, Resp=16 B/min, Comment=nsr 02:15 PM Time: 13:58 Patient comfortable and pain free: Yes 02:15 PM Time: 13:58LOC: 4 = Oriented but drowsy 02:17 PM Time out performed according to hospital policy 02:18 PM Time: 14:17 20 ml Lidocaine 2% to right groin Subcutaneous Given by Alo Theodore MD, [facility] 02:19 PM Access obtained by percutaneous puncture. 5Fr 10cm Terumo Bonham sheath placed in right Femoral artery. [id number] 02:19 PM HR=66 bpm, VNKB=732/75 mmhg, SpO2=94.0 %, Resp=19 B/min, Comment=nsr 02:19 PM 0.035 145cm Navilyst 3mmJ wire [id number] 02:19 PM 5Fr FL 4 catheter inserted over the wire [facility] 02:20 PM Time: 14:20 Versed 1 mg Intravenous Given by Denise Waterman RN 02:20 PM LCA angiography performed in multiple views. 02:20 PM Recorded Pressure: Ao, HR=67, Condition=Condition 1 (Aorta) Ao 115/76/93 02:21 PM Recorded Pressure: Ao, HR=67, Condition=Condition 1 (Aorta) Ao 103/73/87 02:23 PM Catheter removed 02:23 PM 5Fr FR 4 catheter inserted over the wire [facility] 02:23 PM Lesion found in Proximal LAD. Pre Stenosis: 70 Pre GERA Flow: [email or web address] 02:24 PM Proximal Left Anterior Descending Coronary Artery with 70% stenosis. If graft is supplying this territory, 0 % stenosis. [email or web address] 02:24 PM Lesion found in Mid Circumflex. Pre Stenosis: 100 Pre GERA Flow: [email or web address] 02:24 PM HR=74 bpm, USNT=045/75 mmhg, SpO2=93.0 %, Resp=18 B/min, Comment=nsr 02:24 PM Circumflex, Obtuse Marginal, Left Posterior Descending, and Left Posterolateral Coronary Arteries with 100 % stenosis. If graft is supplying this area, 0 % stenosis [email or web address] 02:24 PM Lesion found in 1st Marginal. Pre Stenosis: 70 Pre GERA Flow: [email or web address] 02:24 PM Lesion found in 2nd Marginal. Pre Stenosis: 100 Pre GERA Flow: [email or web address] 02:24 PM RCA angiography performed in multiple views. [email or web address] 02:25 PM Catheter removed 02:25 PM 5Fr Pigtail catheter inserted over the wire D[facility] 02:25 PM Lesion found in Mid RCA. Pre Stenosis: 100 Pre GERA Flow: [email or web address] 02:25 PM Right Coronary, Right Posterior Descending Arteries with Right Posterolateral and Acute Marginal branches with 100 % stenosis. If graft is supplying this area, 0 % stenosis [email or web address] 02:26 PM Coronary Dominance: right ilson 02:26 PM Catheter selectively placed in left ventricle :26 PM Pressure channel 3 zeroed. 02:26 PM Bolus angiogram of left Ventricle complete: 10 ml/sec for a total of 30 mls :27 PM Recorded Pressure: LV, HR=72, Condition=Condition 1 (Left Ventricle) LV 111/-6/7 02:27 PM Recorded Pressure: LV, Ao, HR=70, Condition=Condition 1 (Left Ventricle) LV 110/-5/8, (Aorta) Ao ?/?/? 02:27 PM Catheter removed 02:28 PM Bolus angiogram of right Femoral complete: 4 ml/sec for a total of 7 mls [email or web address] 02:29 PM HR=71 bpm, DJMX=763/78 mmhg, SpO2=92.0 %, Resp=20 B/min, Comment=nsr 02:30 PM Arterial sheath pulled, Mynx closure device used and was Successful S/N. 02:30 PM Cardiothoracic surgeon consulted by physician [email or web address] 02:30 PM Time: 14:15 Patient comfortable and pain free: Yes [email or web address] 02:30 PM Time: 14:15LOC: 4 = Oriented but drowsy [email or web address] 02:31 PM Procedure completed at 14:31 [email or web address] 02:31 PM Sign out completed: Radiation Dose 311.54 mGy Fluoro Time: 1.6 Isovue 370 - 200ml contrast 75 ml given by Alo Theodore MD, FACC. Complications: NoneCardiac Rehab Consult needed: YesConfirmed administered medications: Yes [email or web address] 02:31 PM Post ECG NSR [email or web address] 02:31 PM Post Blood Pressure 117/78 [email or web address] 02:32 PM 14:31 Post Pulses Bilateral DP & PT 2+ [email or web address] 02:32 PM Information taught Cardiac Cath [email or web address] 02:32 PM Education needs Procedure, Plan of Care, and Disease Process [email or web address] 02:32 PM Learning barriers :Sedated [email or web address] 02:32 PM Education Methods Verbal [email or web address] 02:32 PM Education evaluation Needs further instruction [email or web address] 02:32 PM Site status No bleeding/hematoma - Rt Groin as reported by Marine Brennan RT (R) at 14:32 [email or web address] 02:32 PM Opsite applied [email or web address] 02:33 PM Family placed in consult room. [email or web address] 02:33 PM Complications: None [email or web address] 02:34 PM HR=68 bpm, WRBG=459/74 mmhg, SpO2=94.0 % 02:34 PM Fluoro Time: 1.6 [email or web address] 02:34 PM Isovue 370 - 200ml contrast 75 ml given by Alo Theodore MD, FACC. [email or web address] 02:34 PM Radiation Dose 311.54 mGy [email or web address] 02:34 PM Vitals capture stopped. 02:37 PM Report given to jordyn NGUYEN Pt taken to 3B Room #22. 14:37 [email or web address] 02:42 PM Patient out of room: 14:42 [email or web address] Complications Complication None None Hemodynamics Pressures Site Systolic/A Wave Diastolic/V Wave Mean AO 115 76 93 AO 103 73 87 LV 111 -6 7 LV 110 -5 8 AO Post Procedure Information Blood Pressure: 117/78 mmHg Rhythm: NSR Post procedural instructions were given Surgery consult for CABG Closure Device Time Device Success/Fail 08/09/2017 2:30:00 PM MynxGrip Successful Site Checks Time Location Status Staff Sheath In? Note 02:32 PM Rt Groin No bleeding/hematoma Marine Brennan RT (R) Pulses Time Site Pre-Procedure Post-Procedure Note 08/09/2017 1:55:00 PM Bilateral DP & PT 2+ 2:31:00 PM Bilateral DP & PT 2+ Updated by Jas Acosta RT (R) on 08/09/2017 2:43:47 PM Jas Acosta RT electronically signed on 08/09/2017 2:44:17 PM with status of Final
[2017-08-09] MEDS ORDERED: Ondansetron 4 MG/2 ML VIAL IVP PRN (15:01)
[2017-08-09] MEDS ORDERED: Nitroglycerin 0.4 MG TAB.SUBL SL PRN (15:01)
[2017-08-09] MEDS ORDERED: Acetaminophen 325 MG TABLET PO PRN (15:01)
--- NOTE | 2017-08-09 15:01 | Pre-Sedation Evaluation ---
Pre-sedation evaluation - Pre-sedation checklist Date of procedure: 08/09/17 Procedure: left heart cath Recent Vitals: Last Vital Signs Temp 98.2 F 08/09/17 11:26 Pulse 86 08/09/17 11:26 Resp 16 08/09/17 11:26 BP 155/97 08/09/17 11:26 Pulse Ox 95 08/09/17 11:26 H&P (including ROS) documented in medical record: Yes (pt states he has had right tendon and radial artery repair to right wrist) Previous reaction to sedatives/anesthetics: No Dietary Status: No solid food in preceding 4 hrs and no liquid in preceding 2 hrs Airway Assessment: Patient can open mouth completely, TMJ function normal Dentition: full dentition ASA Classification *see protocol: CLASS II-Mild systemic disease Plan of Care: Pt appropriate candidate for procedure/moderate/conscious sedation , Risks/benefits of procedure/sedation discussed w/ patient/family
--- NOTE | 2017-08-09 15:50 | Internal Med Progress Note ---
Date of Encounter: 08/09/17 Time of Encounter: 08:40 - Assessment and plan (1) Chest pain Current Visit: Yes Status: Acute Assessment and plan: Pt reports sudden onset left chest pain after using the bathroom. Pain was sharp , did not radiate. Pt denies SOB, nausea, or diaphoresis. Pain lasted approximately 1 hour and was relieved by NTG in the ED. Pt still reports 2/10 chest pain currently, and 6/10 chest pain during stress test. Pain is reproducible with palpation and deep inspiration. 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 troponins negative, chest xray negative. Lipid panel was elevated. Patient was started on a statin. Patient had an abnormal stress test. It showed 3 vessel disease, cardiology recommends CABG. Patient is waiting to see Dr. Barry. Continue telemetry ASA, ntg for pain. Continue statin, aspirin Qualifiers: Chest pain type: unspecified Qualified Code(s): R07.9 - Chest pain, unspecified (2) Diabetes mellitus type 2 in obese Current Visit: Yes Status: Chronic Assessment and plan: Continue SSI, diabetic diet, and accuchecks ac/hs. A1c 10.6. Patient admits to being nonadherent to medication and diet regimen. (3) Obesity (BMI 30-39.9) Current Visit: Yes Status: Chronic Assessment and plan: Chronic. Lifestyle modifications. (4) DVT prophylaxis Current Visit: Yes Status: Acute Assessment and plan: Lovenox sQ (5) CAD (coronary artery disease) Current Visit: Yes Status: Acute Assessment and plan: Continue telemetry. Continue aspirin, statin., Beta jessica Patient with intermittent chest pain that remains. Cardiology on board, recommends CABG. Patient waiting to see cardiothoracic surgeon. Qualifiers: Coronary Disease-Associated Artery/Lesion type: [place] artery [place] vs. transplanted heart: [place] heart Associated angina: with stable angina Qualified Code(s): I25.118 - Atherosclerotic heart disease of [place] coronary artery with other forms of angina pectoris (6) Abnormal stress test Current Visit: Yes Status: Acute Assessment and plan: Patient had abnormal stress test today showing basal to mid inferior and inferolateral wall infarct with significant artifact ischemia. ECG was negative for ischemia. Gated EF of 54%. Evidence of TID. He was taken to the [facility]. LHC showed severe three-vessel coronary artery disease and mild LV dysfunction with an EF of 45%. Cardiology recommends CABG. Patient is waiting to see cardiothoracic surgeon. - Subjective Interval history: Pt was seen and assessed at 0840 this a.m. he was alert and awake, oriented. Reports intermittent chest pain, states that it was worse during stress test. Chest remains tender to palpation and deep inspiration. Patient had abnormal stress test showing triple-vessel disease. Cardiology recommends CABG. Patient is agreeable. He has not seen Dr. Barry yet. - Constitutional Vitals: Temp Pulse Resp BP Pulse Ox 98.2 F 86 16 155/97 95 08/09/17 11:26 08/09/17 11:26 08/09/17 11:26 08/09/17 11:26 08/09/17 11:26 General appearance: Present: A&O X 3, pleasant, no acute distress, answers questions appropriately - Head Head exam: Present: atraumatic, normal inspection, normocephalic - Eye Eye exam: Present: normal appearance, conjuntiva pink, sclera anicteric - Neck Neck exam general surgery: Present: supple, trachea midline. Absent: lymphadenopathy, tenderness - Respiratory Respiratory exam: Present: chest wall tenderness, CTAB. Absent: accessory muscle use, rales, respiratory distress, rhonchi, wheezes - Cardiovascular Cardiovascular exam: Present: RRR, +S1, +S2. Absent: diastolic murmur, gallop, rubs, systolic murmur - GI/Abdominal GI/Abdominal exam: Present: normal bowel sounds, soft, no peritoneal signs. Absent: distended, hepatomegaly, tenderness - Extremities Exam Extremities exam: Present: normal capillary refill, normal inspection, warm, radial pulses palpable and symmetrical. Absent: calf tenderness, cyanotic, pedal edema, tenderness - Neurological Exam Neurological exam: Present: alert, oriented X3. Absent: facial droop, speech deficit - Skin Skin exam: Present: dry, intact, normal color, warm. Absent: rash Internal Medicine: Result - Labs CBC & Chem 7: 08/07/17 23:44 08/07/17 23:44 - ABG Interpretation ABG results: PT/INR, D-dimer PT 12.4 Seconds (9.4-12.1) H 08/07/17 23:44 Consult Discharge Plan - Plan Referrals: Monse Spaulding DO [Primary Care Provider] -
--- NOTE | 2017-08-09 16:41 | Cardiothoracic Consult Note ---
Date of Encounter: 08/09/17 Time of Encounter: 16:38 Assessment and Plan (1) CAD (coronary artery disease) Current Visit: Yes Status: Acute The assessment and plan as outlined above was discussed with the patient and/or family members who expressed understanding and agreement. All questions were answered. The patient is a candidate for coronary artery bypass grafting. We could definitely bypass the LAD and first obtuse marginal branch of the circumflex. The distal circumflex and the right coronary artery may not be bypassable. The procedure, its risks, benefits and alternatives were explained and he will consider. He may want to come home and come back next week. He may also consider having surgery in [place]. At this point they have no further questions. Qualifiers: Coronary Disease-Associated Artery/Lesion type: [place] artery [place] vs. transplanted heart: [place] heart Associated angina: with stable angina Qualified Code(s): I25.118 - Atherosclerotic heart disease of [place] coronary artery with other forms of angina pectoris - History of Present Illness History of present illness: Mr. Wood is a 47 year old male The patient is a 47-year-old gentleman who presented with a positive stress test. Cardiac catheterization done today revealed a 70-80% proximal LAD lesion, 100% distal circumflex lesion and 100% right coronary artery lesion. The LAD and first obtuse marginal branch of the circumflex look bypassable. The distal circumflex may or may not be bypassable. The distal right coronary artery and posterior descending branch look small and probably are not bypassable. The patient has been on insulin since age 32 for diabetes. He does have hypertension and hypercholesterolemia. Social history he lives near [place]. 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 Does not smoke and does not drink. Family history is negative for coronary artery disease. Review of systems. The patient had a premature . No history of stroke or TIA. No history of saphenous vein varicosities or strippings. Past Med Surg Social Fam HX - Past Medical History Medical history: diabetes, hyperlipidemia Psychiatric history: no psych history - Past Surgical History Surgical History: no surgical history - Social History Smoking Status: Never smoker Smokeless Tobacco Status: No Alcohol use: none Drug use: none - Family History Mother Living Status: Still Living Medications and Allergies No Known Home Drugs 08/09/17 [History] 3 Allergy/AdvReac Type Severity Reaction Status Date / Time Cyclobenzaprine Allergy Hallucinati Verified 08/08/17 00:15 [From Flexeril] ng Penicillins Allergy See Verified 08/08/17 00:15 Comments All Systems Review: A 10-system review of systems was performed and is negative for pertinent findings except as documented above in the HPI. Physical Examination Pupils are equal, round and reactive to light and accommodation. He does have decreased vision in the left eye and does receive shots for diabetic retinopathy. No oral lesions. Neck is supple. Trachea in the midline. No thyromegaly or carotid bruits. Lungs are clear to percussion and auscultation. Heart is in a regular rate and rhythm. No murmurs, gallops or rubs. Abdomen is benign. No tenderness, rebound or guarding. Extremities without edema. 1+ pulses. No saphenous vein varicosities or strippings. Cranial nerves are noted for decreased vision in the left eye. Motor and sensory intact. Results 08/07/17 23:44 08/07/17 23:44 Consult Discharge Plan - Plan Referrals: Monse Spaulding DO [Primary Care Provider] -
[2017-08-09] MEDS ORDERED: Perflutren Lipid Microsphere 1.3 ML in 0.9 % Sodium Chloride 8.7 ML IVP ONE (20:10)
[2017-08-09] MEDS ORDERED: Perflutren Lipid Microsphere 2 ML VIAL ONE (20:13)
[2017-08-09] MEDS ORDERED: Insulin LISPRO 300 UNITS/3 ML VIAL SQ SCH (21:15)
--- NOTE | 2017-08-10 07:22 | Cardiothoracic Progress Note ---
Date of Encounter: 08/10/17 Time of Encounter: 07:21 - Assessment and plan (1) CAD (coronary artery disease) Current Visit: Yes Status: Acute The patient has no questions concerning open heart surgery. He states that he wishes to be transferred to [facility] for his surgery. Qualifiers: Coronary Disease-Associated Artery/Lesion type: [place] artery [place] vs. transplanted heart: [place] heart Associated angina: with stable angina Qualified Code(s): I25.118 - Atherosclerotic heart disease of [place] coronary artery with other forms of angina pectoris - Subjective Interval history: The patient has had no severe chest pain. Vital Signs, Last 4 Hours Temp Pulse Resp BP Pulse Ox 08/10/17 05:32 97.5 F L 64 16 107/62 96 Weight 08/08/17 08/09/17 08/10/17 23:59 23:59 23:59 Weight 120.429 kg 121.563 kg 127.142 kg Lungs are clear to percussion and auscultation. Heart is in a normal sinus rhythm. - Labs 08/07/17 23:44 08/07/17 23:44 Consult Discharge Plan - Plan Referrals: Monse Spaulding DO [Primary Care Provider] -
[2017-08-10] MEDS: Aspirin 325 MG TABLET PO SCH (09:11)
[2017-08-10] MEDS: Insulin LISPRO 300 UNITS/3 ML VIAL SQ SCH (09:11)
[2017-08-10 10:25] LABS: BUN/Creatinine Ratio 21 (6-26); Blood Urea Nitrogen 15 mg/dL (8-26); Calcium 9.2 mg/dL (8.6-10.8); Carbon Dioxide 23 mEq/L (19-29); Chloride 105 mEq/L (98-109); Glucose 228 mg/dL (70-99); Osmolality,Calculated 290 (280-300); Potassium 4.2 mEq/L (3.5-4.5); Sodium 136 mEq/L (136-145); eGFR For African Americans > 60 (> 60); eGFR For Non-African Americans > 60 (> 60)
[2017-08-10 11:20] VITALS: BP 119/80
--- NOTE | 2017-08-10 11:33 | Cardiology Progress Note ---
Date of Encounter: 08/10/17 Time of Encounter: 11:00 Assessment and Plan (1) CAD (coronary artery disease) Current Visit: Yes Status: Acute LHC completed showed severe three vessel CAD. EF 45%. 70-80% stenosis in the Proximal LAD. 100% stenosis in the Mid Circumflex. 70% stenosis in the 1st Major Marginal. 100% stenosis in the 2nd Major Marginal that fill late from ipsilateral collaterals with GERA 2 flow. 100% stenosis in the Mid RCA. There are Left to Right Collaterals filling the PDA. TTE shows EF 50-55%. No significant valvular disease. Continue asa, statin, and bb. CT surgery consulted. Patient wishes to go to [facility] for [facility]. Cardiology will sign off. We will schedule out-pt f/u in 4 weeks. Please call with questions. Qualifiers: Coronary Disease-Associated Artery/Lesion type: [place] artery [place] vs. transplanted heart: [place] heart Associated angina: with stable angina Qualified Code(s): I25.118 - Atherosclerotic heart disease of [place] coronary artery with other forms of angina pectoris (2) Abnormal stress test Current Visit: Yes Status: Acute Stress shows prior basal- mid inferolateral wall infarct with significant shani- infarct ischemia. There was evidence of TID. LHC completed and he was found to have severe three vessel CAD. (3) Diabetes mellitus type 2 in obese Current Visit: Yes Status: Chronic Hospitalist following. Discussion w patient/family: The assessment and plan as outlined above was discussed with the patient and/or family members who expressed understanding and agreement. All questions were answered. Thank you for involving us in the care of your patient. Please call with any questions. Subjective Principal diagnosis: Severe three vessel CAD Interval history: Mr. Wood denies recurrent chest pain. Denies problems with right groin access. Objective Vital Signs, Last 4 Hours Temp Pulse Resp BP Pulse Ox 08/10/17 11:20 98.3 F 72 18 119/80 94 General: Conversant, No Apparent Distress HEENT: Atraumatic, Normocephaly, Mucus Membranes Moist Neck: No JVD, Normal carotid pulses Cardiac: Reg Rate and Rhythm, Normal S1 and S2, No Murmur Lungs: Normal Breath Sounds, No Wheeze, Rales, Rhonchi Neuro: Alert and responsive, No focal deficits noted Abdomen: Soft, Non-Tender Skin: No rashes noted on visualized skin Musculoskeletal: No Chest Wall Tenderness Extremities: No Clubbing, No Cyanosis, No Edema, Normal Pulses, Other (Right groin soft, no hematoma. ) Results 08/07/17 23:44 08/10/17 09:08 Lab Results 08/10/17 09:08 Sodium 136 Potassium 4.2 Chloride 105 Carbon Dioxide 23 BUN 15 Creatinine 0.73 Glucose 228 H Calcium 9.2 Consult Discharge Plan - Plan Referrals: Monse Spaulding DO [Primary Care Provider] -
--- NOTE | 2017-08-10 13:35 | Discharge Summary ---
Date of Encounter: 08/10/17 Time of Encounter: 12:00 - Discharge Diagnosis (1) Angina pectoris Priority: Primary Status: Acute (2) Hyperlipidemia Priority: Secondary Status: Chronic Qualifiers: Hyperlipidemia type: unspecified Qualified Code(s): E78.5 - Hyperlipidemia , unspecified (3) Diabetes mellitus type 2 in obese Priority: Secondary Status: Chronic (4) CAD (coronary artery disease) Priority: Secondary Status: Chronic Qualifiers: Coronary Disease-Associated Artery/Lesion type: [place] artery [place] vs. transplanted heart: [place] heart Associated angina: with stable angina Qualified Code(s): I25.118 - Atherosclerotic heart disease of [place] coronary artery with other forms of angina pectoris - Discharge Medications Home Medications: Acetaminophen [Tylenol] 650 mg PO Q6HR PRN tablet 08/10/17 [Rx] Aspirin 325 mg PO DAILY tablet 08/10/17 [Rx] Insulin LISPRO [HumaLOG] 0 units SQ HS vial 08/10/17 [Rx] Insulin LISPRO [HumaLOG] 0 units SQ TIDAC vial 08/10/17 [Rx] Metoprolol [Lopressor] 25 mg PO BID tablet 08/10/17 [Rx] Nitroglycerin 0.4 mg SL Q5MIN PRN tab.subl 08/10/17 [Rx] Simvastatin [Zocor] 20 mg PO QPM tablet 08/10/17 [Rx] Allergies/Adverse Reactions: 3 Allergy/AdvReac Type Severity Reaction Status Date / Time Cyclobenzaprine Allergy Hallucinati Verified 08/08/17 00:15 [From Flexeril] ng Penicillins Allergy See Verified 08/08/17 00:15 Comments Procedures/tests Complete & Pending: Procedures Performed prior 72 hours Category Date Time Status CL Cardiac Catheterization [CL] Routine Knife Sharpener 08/09/17 11:38 Completed NM carly perf SPECT multi [NM] Routine Exams 08/08/17 08:57 Taken EV echocardiogram w enhance Stat Y 08/09/17 16:37 Completed SP pharm nuclear stress Routine Y 08/08/17 08:50 Completed Date of admission: 08/08/17 01:07 Primary care physician: Monse Spaulding DO Consults: 08/09/17 09:33 Consult to Cardiology [CONS] Routine Comment: Consulting Provider: Cardiology Susie Reason for Consult: abnormal stress Time Notified: 09:33 Call Completed: Yes Discharging clinician: Dorothy Ortiz Anticipated date of discharge: 08/10/17 - Patient Status Disposition: Transfer Critical Access Hosp Condition: Fair Functional capacity at discharge: independent ambulation Overall status at discharge: patient is not back to baseline - Discharge Instructions Follow Up With: Monse Spaulding DO [Primary Care Provider] - - Diet and Activity Diet: diabetic diet, low fat, low cholesterol, low salt diet Hospital course: Mr. Wood is a 47 year old male with history of diabetes and hyperlipidemia, with medical noncompliance, was admitted with retrosternal chest pain. His initial EKG showed no evidence of acute ischemic changes and serial troponins remained negative. He was started on aspirin, statin and beta jessica. Lipid profile showed elevated triglycerides and LDL cholesterol. He was also noted to have poorly controlled diabetes with hemoglobin A1c at 10.6%. Echocardiogram was done which was a technically challenging study but was grossly normal. Nuclear stress test was done which showed Basal-mid inferior and inferolateral wall infarct with significant shani-infarct ischemia. Cardiology was consulted and patient underwent left heart catheterization which showed significant multivessel coronary artery disease that warrant coronary artery bypass graft surgery. He was being evaluated by cardiothoracic surgery for possible CABG at which point, patient decided to pursue further management at [facility]. Case was discussed with cardiology at [facility], and his care is currently being transferred there. - Time Spent with Patient Total time spent providing and/or coordinating discharge services: Greater than 30 minutes (45 min) - Constitutional Vitals: Temp Pulse Resp BP Pulse Ox 98.3 F 72 18 119/80 94 08/10/17 11:20 08/10/17 11:20 08/10/17 11:20 08/10/17 11:20 08/10/17 11:20 General appearance: Present: A&O X 3, answers questions appropriately - Respiratory Respiratory exam: Present: CTAB. Absent: accessory muscle use, rales, rhonchi, wheezes - Cardiovascular Cardiovascular exam: Present: RRR, +S1, +S2. Absent: diastolic murmur, gallop, rubs, systolic murmur
[2017-08-10] MEDS ORDERED: Insulin LISPRO 300 UNITS/3 ML VIAL SQ SCH ×2 (16:30→21:00)
[2017-08-12 10:04] LABS: CK-MB (CK isoenzymes) 0 % (0-4); CK-MM (CK-isoenzymes) 100 % (96-100)
[2017-08-12 10:04] LABS: CK-MB (CK isoenzymes) 0 % (0-4); CK-MM (CK-isoenzymes) 100 % (96-100)
[2017-08-12 10:44] LABS: CK Total (Ck Isoenzymes) 43 U/L (20-200); CK-BB (CK isoenzymes) 0 % (0-0)
[2017-08-12 10:44] LABS: CK Total (Ck Isoenzymes) 45 U/L (20-200); CK-BB (CK isoenzymes) 0 % (0-0)
== END 2017-08-10 16:10 | disposition critical access hospital (66) ==
LOC: 3BNU 23:31 → EMEROO 23:31 → SUATTDRO 08-08 01:07 → 3BNU 08-08 02:15
PROVIDERS: ADMIT Hospitalist; ATTEND Internal Medicine

== ENCOUNTER 2019-06-10 22:06 | Observation (INO) ==
--- NOTE | 2019-06-10 22:11 | Emergency Department Note ---
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 The patient states that he had a quintuple bypass heart surgery in August 2017 and this is an identical presentation to his previous WI. The patient admits to some nausea but feels this may be due to his chronic GERD. He denies headache, neck or back pain, numbness paresthesias lightheadedness dizziness vomiting, shortness of breath or any other concerns or complaints at this time. Upon my initial evaluation, my general impression is that the patient is awake, alert, oriented, engaged to conversation and answering questions appropriately. There are no overt lateralizing signs, the patient is in no acute distress; their skin appears to be normal in color, they are not pale, not cyanotic, and not diaphoretic, they are sitting up in hospital bed interacting appropriately with environment. Pt complaint: chest pain Onset (ago): hour(s) Duration: constant Onset: during rest Pain Location: substernal Severity: moderate Severity scale (1-10): 6 Quality: tightness, heaviness, similar to prior WI Pain Radiation: none Improves with: nothing Worsens with: nothing Associated symptoms: Reports: nausea Treatments prior to arrival chest pain: aspirin (Patient was given 324 mg aspirin and route) - Related Data Home Medications Medication Instructions Recorded Confirmed Aspirin [Lo-Dose Aspirin EC] 81 mg PO DAILY 10/07/17 01/31/18 Atorvastatin [Lipitor] 80 mg PO HS 10/07/17 01/31/18 Lisinopril [Zestril] 10 mg PO DAILY 10/07/17 01/31/18 Metoprolol [Lopressor] 50 mg PO BID 10/07/17 01/31/18 Quetiapine Fumarate [Seroquel] 25 mg PO HS PRN 10/07/17 01/31/18 metFORMIN [Glucophage] 500 mg PO BIDWM 10/07/17 01/31/18 Dulaglutide [Trulicity] 0.75 mg SQ QWEEK 01/29/18 01/31/18 Ranitidine HCl [Heartburn Relief] 150 mg PO HS 01/29/18 01/31/18 Previous Rx's Medication Instructions Recorded Acetaminophen [Tylenol] 650 mg PO Q6HR PRN tablet 08/10/17 Allergies Allergy/AdvReac Type Severity Reaction Status Date / Time Cyclobenzaprine Allergy Hallucinati Verified 06/10/19 22:21 [From Flexeril] ng Penicillins Allergy See Verified 06/10/19 22:21 Comments wellbutrin AdvReac Insomnia Uncoded 06/10/19 22:21 Review of Systems: *See History of Present Illness for more detail Constitutional: Denies: fever, chills HEENT: Denies dysphagia/odynophagia, lymphadenopathy Cardiovascular: Admits: chest pain Respiratory: Denies: dyspnea, cough, hemoptysis Gastrointestinal: Admits to nausea Denies: abdominal pain, vomiting, diarrhea, constipation, hematemesis, melena, hematochezia Genitourinary: Denies: hematuria Musculoskeletal: Denies: back pain, neck pain Integumentary: Denies: rash Neurological: Denies: headache, weakness, lightheadedness/dizziness, numbness, paresthesias, difficulty with ambulation. Endocrine: Denies: fatigue Hematological/Lymphatic: Denies: easy bleeding, easy bruising All systems ED: reviewed and negative except as stated. Review of Systems: As Per HPI Chest Pain PMH - Past Medical History Medical history: Reports: coronary artery disease, diabetes, GERD, hyperlipidemia, hypertension, myocardial infarction Surgical history: Reports: coronary bypass (CABG) Psychiatric history: Reports: no psych history Prior Cardiac Testing/Procedures: Stress Test (10 years ago) - Social History Smoking Status: 2nd Hand Smoke Exposure Alcohol use: Reports: rarely Drug use: Reports: none Physical Exam Constitutional: No acute distress, [id number], engaged to conversation, speech is fluid, answers questions appropriately Neuro: GCS 15, no overt focal neurological deficits Head: Atraumatic, normocephalic Eyes: Pupils equal, round and reactive to light, no scleral icterus, no conjunctival injection Neck: Trachea midline without deviation. Anterior neck is supple without swelling. *Chest: Symmetric chest wall rise *Heart: Cardiac rhythm and rate are regular with S1 and S2 , no S3 or S4 appreciated, no murmurs, gallops, rubs, or clicks. *Lungs: Lungs are clear to auscultation bilaterally, without accessory muscle use or prolonged expiratory phase. No wheezes, rhonchi or stridor appreciated. Abdomen: Abdomen is flat, soft to palpation, normal bowel sounds. No abdominal bruit auscultated. Non-distended, non-rigid, no organomegaly, no ascites appreciated. No pulsatile mass, no tenderness or guarding to palpation in all four quadrants, no rebound Extremities: Normal capillary refill without evidence of pedal edema, joint swelling or erythema. Pulses/motor intact in all 4 extremities. Psychiatric exam: Patient displays a normal affect and mood for the environment. No overt signs of hallucination. Integumentary: warm, dry, intact, normal color. No rash, cyanosis, diaphoresis, erythema, or pallor - General Limitations: no limitations General appearance: alert, in no apparent distress Course Course Narrative: ED chest pain workup to include EKG/old EKG, chest x-ray, troponin basic labs Morphine for the management of patient's pain as he states that nitroglycerin causes him to become extremely hypotensive. The patient has received aspirin prior to arrival. Vital Signs Temperature 98.4 F 06/10/19 22:21 Pulse Rate 84 06/10/19 22:21 Respiratory Rate 14 06/10/19 22:21 Blood Pressure 141/75 06/10/19 22:21 O2 Sat by Pulse Oximetry 96 06/10/19 22:21 Temperature 98.4 F 06/10/19 22:21 Pulse Rate 81 06/11/19 00:00 Respiratory Rate 16 06/11/19 00:00 Blood Pressure 126/70 06/11/19 00:00 O2 Sat by Pulse Oximetry 97 06/11/19 00:00 Oxygen Delivery Oxygen Delivery Room Air Chest Pain - [facility] Narrative Medical decision making narrative: The patients EKG, imaging, and laboratory results show no acute pathology. Evaluation results were discussed with the patient at bedside. Patient was given time to ask questions and state concerns. The patient states that he has had significant relief of his symptoms with our management here in the ED. The patient will be admitted to the hospitalist medicine service for further evaluation and management of chest pain with ACS rule out . The patient verbalizes their understanding and agreement with this plan and is hemodynamically stable at the time of admission. - Lab Data Lab results reviewed: Yes I reviewed the patient's lab results. Result diagrams: 06/10/19 22:20 06/10/19 22:20 Lab Results 06/10/19 06/10/19 06/10/19 Range/Units 22:10 22:20 22:20 WBC 6.9 (4.3-11.1) K/mcL RBC 5.16 (4.19-5.50) M/mcL Hgb 15.1 (12.9-16.9) g/dL Hct 44.2 (37.5-50.1) % MCV 85.7 (83.0-100.0) fL MCH 29.3 (28.0-33.3) pg MCHC 34.2 (31.6-35.5) g/dL RDW 12.7 (11.5-14.5) % Plt Count 186 (140-400) K/mcL MPV 10.9 (9.4-12.4) fL Immature Gran % 0.4 (0-4) % Seg Neutrophils % 62.2 % Lymphocytes % 30.1 % Monocytes % 5.8 % Eosinophils % 1.2 % Basophils % 0.3 % Neutrophils # 4.3 (1.6-8.9) K/mcL Lymphocytes # 2.1 (0.6-4.6) K/mcL Monocytes # 0.4 (0.0-1.3) K/mcL Eosinophils # 0.1 (0.0-0.6) K/mcL Basophils # 0.0 (0.0-0.2) K/mcL Sodium 138 (136-145) mEq/L Potassium 3.7 (3.5-5.1) mEq/L Chloride 104 (98-107) mEq/L Carbon Dioxide 24 (23-29) mEq/L BUN 18 (6-20) mg/dL Creatinine 0.68 L (0.70-1.30) mg/dL Est GFR ( Amer) > 60 (> 60) Est GFR (Non-Af Amer) > 60 (> 60) BUN/Creatinine Ratio 26 (6-26) Glucose 285 H (70-105) mg/dL Calculated Osmolality 298 (280-300) Calcium 9.2 (8.6-10.3) mg/dL Total Bilirubin 0.8 (0.3-1.0) mg/dL Direct Bilirubin 0.2 (0.0-0.2) mg/dL Indirect Bilirubin 0.6 (0.0-1.2) mg/dL AST 16 (13-39) Units/L ALT 20 (7-52) Units/L Alkaline Phosphatase 127 H (34-104) Units/L Troponin I < 0.03 (< 0.04) ng/mL Serum Total Protein 6.8 (6.4-8.9) g/dL Albumin 4.2 (3.5-5.7) g/dL Globulin 2.6 (2.4-3.5) g/dL Albumin/Globulin Ratio 1.6 (1.1-2.2) Lipase 21 (11-82) Units/L - Radiology Data Radiology results reviewed: Yes I reviewed the patient's radiology results. Chest X-Ray 06/10/19 22:10 IMPRESSION: Mild prominence of interstitial lung markings may represent mild pulmonary venous congestion. No evidence of flore[place]io pulmonary edema. Correlation with volume status is recommended. No evidence of focal consolidation, pneumothorax, or significant pleural effusion. D/ / 06/10/2019 22:45:11 Dom Barajas MD / jyoti Interpreting Provider: Dom Barajas MD - EKG Data EKG attestation: Yes I reviewed and interpreted this EKG. EKG results narrative: The patients EKG shows a sinus rhythm at a rate of 87 beats per minute, GA interval of 137 milliseconds, a QRS duration of 102 milliseconds, a QT/QTc interval of 374 / 450 milliseconds respectively. There are no significant ST segment elevations, depressions, pathologic Q waves, abnormal T-wave inversions, nor any other signs of acute ischemic change. This EKG that was performed today is generally consistent in morphology with prior EKG that was performed on 08/07/2017. Heart Score - Score History: Highly Suspicious EKG: Non Specific repolarisation Disturbance Age: 45-65 Risk Factors: Equal/Greater than 3 risk factor or history of atherosclerotic disease Troponin: Less than normal limit HEART Score Total: 6
[2019-06-10 22:44] LABS: Basophils % 0.3 %; Eosinophils # 0.1 K/mcL (0.0-0.6); Eosinophils % 1.2 %; Hematocrit 44.2 % (37.5-50.1); Hemoglobin 15.1 g/dL (12.9-16.9); Immature Granulocytes % 0.4 % (0-4); Lymphocytes # 2.1 K/mcL (0.6-4.6); Lymphocytes % 30.1 %; Mean Corpuscular HGB Conc 34.2 g/dL (31.6-35.5); Mean Corpuscular Hemoglobin 29.3 pg (28.0-33.3); Mean Corpuscular Volume 85.7 fL (83.0-100.0); Mean Platelet Volume 10.9 fL (9.4-12.4); Monocytes # 0.4 K/mcL (0.0-1.3); Monocytes % 5.8 %; Neutrophils # 4.3 K/mcL (1.6-8.9); Platelet Count 186 K/mcL (140-400); Red Blood Count 5.16 M/mcL (4.19-5.50); Red Cell Distribution Width 12.7 % (11.5-14.5); Segmented Neutrophils % 62.2 %; White Blood Count 6.9 K/mcL (4.3-11.1)
[2019-06-10 23:00] LABS: Albumin 4.2 g/dL (3.5-5.7); Albumin/Globulin Ratio 1.6 (1.1-2.2); Bilirubin,Direct 0.2 mg/dL (0.0-0.2); Bilirubin,Indirect 0.6 mg/dL (0.0-1.2); Bilirubin,Total 0.8 mg/dL (0.3-1.0); Globulin 2.6 g/dL (2.4-3.5); Total Protein 6.8 g/dL (6.4-8.9)
[2019-06-10 23:02] LABS: BUN/Creatinine Ratio 26 (6-26); Blood Urea Nitrogen 18 mg/dL (6-20); Calcium 9.2 mg/dL (8.6-10.3); Carbon Dioxide 24 mEq/L (23-29); Chloride 104 mEq/L (98-107); Glucose 285 mg/dL (70-105); Osmolality,Calculated 298 (280-300); Potassium 3.7 mEq/L (3.5-5.1); Sodium 138 mEq/L (136-145); Troponin I < 0.03 ng/mL (< 0.04); eGFR For African Americans > 60 (> 60); eGFR For Non-African Americans > 60 (> 60)
[2019-06-11] MEDS ORDERED: Morphine Sulfate 2 MG/ML SYRINGE IVP STA (00:10)
--- NOTE | 2019-06-11 00:26 | Emergency Department Note ---
Disposition Clinical Impression: Chest pain Qualifiers: Chest pain type: unspecified Qualified Code(s): R07.9 - Chest pain, unspecified Disposition: Admitted As Inpatient Condition: Fair Time of Disposition: 01:07 General Adult HPI - General Chief complaint: ED Chest Pain Stated complaint: Chest Pain Time Seen by Provider: 06/10/19 22:10 Source: patient, EMS Mode of arrival: EMS Limitations: no limitations Nursing Notes Reviewed: Yes Vital Signs Reviewed: Yes - History of Present Illness Pain Scale: 6 - Related Data Home Medications Medication Instructions Recorded Confirmed Aspirin [Lo-Dose Aspirin EC] 81 mg PO DAILY 10/07/17 06/11/19 Atorvastatin [Lipitor] 80 mg PO HS 10/07/17 06/11/19 Metoprolol [Lopressor] 50 mg PO BID 10/07/17 06/11/19 Ranitidine HCl [Heartburn Relief] 150 mg PO HS 01/29/18 06/11/19 Isosorbide MONOnitrate (24 HR) 30 mg PO DAILY 06/11/19 06/11/19 [Imdur] Losartan Potassium 25 mg PO DAILY 06/11/19 06/11/19 Previous Rx's Medication Instructions Recorded Acetaminophen [Tylenol] 650 mg PO Q6HR PRN tablet 08/10/17 Allergies Allergy/AdvReac Type Severity Reaction Status Date / Time Cyclobenzaprine Allergy Hallucinati Verified 06/10/19 22:21 [From Flexeril] ng Penicillins Allergy See Verified 06/10/19 22:21 Comments wellbutrin AdvReac Insomnia Uncoded 06/10/19 22:21 Past Medical History - Past Medical History Medical history: Reports: coronary artery disease, diabetes, GERD, hyperlipidemia, hypertension, myocardial infarction Surgical history: Reports: coronary bypass (CABG) Psychiatric history: Reports: no psych history - Social History Smoking Status: Never smoker Smokeless Tobacco Status: No Alcohol use: Reports: none Drug use: Reports: none Physical Exam - General Limitations: no limitations General appearance: alert Course Vital Signs Temperature 98.4 F 06/10/19 22:21 Pulse Rate 84 06/10/19 22:21 Respiratory Rate 14 06/10/19 22:21 Blood Pressure 141/75 06/10/19 22:21 O2 Sat by Pulse Oximetry 96 06/10/19 22:21 Temperature 98.4 F 06/10/19 22:21 Pulse Rate 81 06/11/19 00:00 Respiratory Rate 16 06/11/19 00:00 Blood Pressure 126/70 06/11/19 00:00 O2 Sat by Pulse Oximetry 97 06/11/19 00:00 Oxygen Delivery Oxygen Delivery Room Air Medical Decision Making - Medical Records Medical records reviewed: Yes I reviewed the patient's medical records. - Lab Data Lab results reviewed: Yes I reviewed the patient's lab results. Result diagrams: 06/10/19 22:20 06/10/19 22:20 Lab Results 06/10/19 06/10/19 06/10/19 Range/Units 22:10 22:20 22:20 WBC 6.9 (4.3-11.1) K/mcL RBC 5.16 (4.19-5.50) M/mcL Hgb 15.1 (12.9-16.9) g/dL Hct 44.2 (37.5-50.1) % MCV 85.7 (83.0-100.0) fL MCH 29.3 (28.0-33.3) pg MCHC 34.2 (31.6-35.5) g/dL RDW 12.7 (11.5-14.5) % Plt Count 186 (140-400) K/mcL MPV 10.9 (9.4-12.4) fL Immature Gran % 0.4 (0-4) % Seg Neutrophils % 62.2 % Lymphocytes % 30.1 % Monocytes % 5.8 % Eosinophils % 1.2 % Basophils % 0.3 % Neutrophils # 4.3 (1.6-8.9) K/mcL Lymphocytes # 2.1 (0.6-4.6) K/mcL Monocytes # 0.4 (0.0-1.3) K/mcL Eosinophils # 0.1 (0.0-0.6) K/mcL Basophils # 0.0 (0.0-0.2) K/mcL Sodium 138 (136-145) mEq/L Potassium 3.7 (3.5-5.1) mEq/L Chloride 104 (98-107) mEq/L Carbon Dioxide 24 (23-29) mEq/L BUN 18 (6-20) mg/dL Creatinine 0.68 L (0.70-1.30) mg/dL Est GFR ( Amer) > 60 (> 60) Est GFR (Non-Af Amer) > 60 (> 60) BUN/Creatinine Ratio 26 (6-26) Glucose 285 H (70-105) mg/dL Calculated Osmolality 298 (280-300) Calcium 9.2 (8.6-10.3) mg/dL Total Bilirubin 0.8 (0.3-1.0) mg/dL Direct Bilirubin 0.2 (0.0-0.2) mg/dL Indirect Bilirubin 0.6 (0.0-1.2) mg/dL AST 16 (13-39) Units/L ALT 20 (7-52) Units/L Alkaline Phosphatase 127 H (34-104) Units/L Troponin I < 0.03 (< 0.04) ng/mL Serum Total Protein 6.8 (6.4-8.9) g/dL Albumin 4.2 (3.5-5.7) g/dL Globulin 2.6 (2.4-3.5) g/dL Albumin/Globulin Ratio 1.6 (1.1-2.2) Lipase 21 (11-82) Units/L /02/24 Range/Units 00:23 WBC (4.3-11.1) K/mcL RBC (4.19-5.50) M/mcL Hgb (12.9-16.9) g/dL Hct (37.5-50.1) % MCV (83.0-100.0) fL MCH (28.0-33.3) pg MCHC (31.6-35.5) g/dL RDW (11.5-14.5) % Plt Count (140-400) K/mcL MPV (9.4-12.4) fL Immature Gran % (0-4) % Seg Neutrophils % % Lymphocytes % % Monocytes % % Eosinophils % % Basophils % % Neutrophils # (1.6-8.9) K/mcL Lymphocytes # (0.6-4.6) K/mcL Monocytes # (0.0-1.3) K/mcL Eosinophils # (0.0-0.6) K/mcL Basophils # (0.0-0.2) K/mcL Sodium (136-145) mEq/L Potassium (3.5-5.1) mEq/L Chloride (98-107) mEq/L Carbon Dioxide (23-29) mEq/L BUN (6-20) mg/dL Creatinine (0.70-1.30) mg/dL Est GFR ( Amer) (> 60) Est GFR (Non-Af Amer) (> 60) BUN/Creatinine Ratio (6-26) Glucose (70-105) mg/dL Calculated Osmolality (280-300) Calcium (8.6-10.3) mg/dL Total Bilirubin (0.3-1.0) mg/dL Direct Bilirubin (0.0-0.2) mg/dL Indirect Bilirubin (0.0-1.2) mg/dL AST (13-39) Units/L ALT (7-52) Units/L Alkaline Phosphatase (34-104) Units/L Troponin I < 0.03 (< 0.04) ng/mL Serum Total Protein (6.4-8.9) g/dL Albumin (3.5-5.7) g/dL Globulin (2.4-3.5) g/dL Albumin/Globulin Ratio (1.1-2.2) Lipase (11-82) Units/L - Radiology Data Radiology results reviewed: Yes I reviewed the patient's radiology results. Chest X-Ray 06/10/19 22:10 IMPRESSION: Mild prominence of interstitial lung markings may represent mild pulmonary venous congestion. No evidence of florencio pulmonary edema. Correlation with volume status is recommended. No evidence of focal consolidation, pneumothorax, or significant pleural effusion. D/ / 06/10/2019 22:45:11 Dom Barajas MD / [facility] Interpreting Provider: Dom Barajas MD - EKG Data EKG #1 EKG attestation: Yes I reviewed and interpreted this EKG. EKG results narrative: EKG shows a normal sinus rhythm with ventricular rate of 87. No significant ST segment elevation or depression. No arrhythmia or ectopy. No significant change from prior EKG dated 08/07/2017. Attestation Statement - Attestation Attestation: I, Matias Peters MD, personally evaluated this patient and discussed their management with the resident physician. I reviewed the resident's note and agree with the documented findings, medical decision making, and plan of care. I reviewed the residents documentation and agree with the residents assessment and plan of care. I have personally had face to face time with the patient. I personally supervised and was present for the jacob/critical portions of the following procedures completed by the resident: EKG interpretation. 49-year-old male presents to the emergency department by EMS with a complaint of mid substernal chest pain which started about 45 minutes prior to arrival while he was at work. 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 Patient states that the pain feels the same as 2 years ago when he had chest pain and ended up having a 5 vessel CABG. He is followed here by Dr. Theodore. He states he has had no angina or any problems since his bypass surgery until [facility]. Patient relates that the last time all of his labs and troponins were negative and everything was checking out fine until he had a cardiac catheter which revealed extensive blockages. Patient did receive aspirin. He refuses nitroglycerin because he states he is very sensitive to nitroglycerin and even though his pressure was extremely high the last time he had nitroglycerin that really dropped his blood pressure to a very low level and he does not wish to have nitroglycerin. On examination patient is a well-developed obese male in no acute distress. He is alert and oriented 3. There is no cyanosis or diaphoresis. Chest is nontender to palpation. Breath sounds are clear and equal bilaterally. Heart regular rate and rhythm. Abdomen soft and nontender with normal bowel sounds. EKG shows a normal sinus rhythm with ventricular rate of 87. No significant ST segment elevation or depression. No arrhythmia or ectopy. No significant change from prior EKG dated 08/07/2017. Chest x-ray shows possible mild pulmonary vascular congestion. Labs reviewed. Troponin normal. The hospitalist, Dr. Hough, was consulted and accepted admission of the ana duncan.
[2019-06-11] MEDS ORDERED: Acetaminophen 325 MG TABLET PO PRN (01:45)
--- NOTE | 2019-06-11 02:00 | Internal Med History&Physical ---
Date of Encounter: 06/11/19 Time of Encounter: 01:59 Internal Medicine - H&P: HPI Chief complaint: chest pain Admitted From: Home Plans for Post Hospital Care: Home History of present illness: Archie Wood is a 49-year-old morbidly obese man with hypertension, diabetes and coronary artery disease who underwent 5 vessel coronary artery bypass in August 2017 and was last admitted here in January 2018 for angina presenting today with acute onset chest pain that started while he was at work at the [employer]. He rated it a 7 out of 10 in intensity localizing it to the inferior sternal region, fixed in location without radiation and no accompanying diaphoresis or dyspnea but did have some nausea. He felt it was similar to his prior presentation then necessitated him undergoing CABG. He took 324mg of aspirin and an hour later the pain subsided however it recurred soon after that which prompted him to seek medical attention. He was brought in by ambulance but he declined nitroglycerin stating that it had previously dropped his blood pressure significantly. Over here he was given 4 mg of morphine and currently rates his chest pain a 4 out of 10. EKG is reviewed by me revealed normal sinus rhythm. He is a lifelong nonsmoker and denies illicit drug use. Lab work was grossly unremarkable and thus far has had 2 negative serum troponins. He is admitted for observation. Vitals: Reviewed General: Obese white man lying comfortably in bed in no acute distress. Skin: Warm and supple. HEENT: Moist mucous membranes. No conjunctivae pallor. Neck: No lymphadenopathy. No JVD. No carotid bruits. No palpable thyroid. Chest: Normal thoracic expansion. Normal breath sounds. Clear to auscultation. Heart: Normal S1 & S2; rhythmic. No rubs or murmurs. Abdomen: Non-distended, soft and non-tender to palpation. No peritoneal reaction. Extremities: No clubbing, cyanosis or edema. No calf tenderness. Normal distal pulses. Neurological: Awake, alert and oriented to person, place and time. No focal deficits. Psych: Affect appropriate. Assessment/Plan 1. Unstable angina: The patient has known coronary artery disease which prompts concern when he develops such chest pain. He says since his last admission here he has been doing well and this is his first episode and seems similar to previous which made it worrisome. For now we will monitor him on telemetry, repeat another troponin in the monitor and assess for recurrence of chest pain that may necessitate further measures. 2. Coronary artery disease: Continue aspirin, beta jessica and high intensity statin. 3. Diabetes: Well controlled with dietary habits. A1C a year ago was 6.5%. 4. Hypertension: On losartan. 5. Obesity: Counseled and educated on therapeutic lifestyle changes for weight loss as it will be of benefit in controlling comorbidities. 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 Past Med Surg Social Fam HX - Past Medical History Medical history: coronary artery disease, diabetes, GERD, hyperlipidemia, hypertension, myocardial infarction Psychiatric history: no psych history - Past Surgical History Surgical History: coronary bypass (CABG) Additional surgical history: Right Wrist - Social History Smoking Status: Never smoker Smokeless Tobacco Status: No Alcohol use: none Drug use: none - Family History Mother Adopted: No Family Member Ethnicity: Non- Living Status: Still Living Hx Family Cardiac Disorders: No Hx Family Respiratory Disorders: No Hx Family Cancer: No Hx Family GI Disorders: Yes (slow GI bleed) Hx Family Endocrine Disorder: No Hx Family Neuromuscular Disorders: No Hx Family Neurologic Disorders: No Hx Family HEENT Disorders: No Hx Family Autoimmune Disorders: No Internal Medicine - H&P: Meds Acetaminophen [Tylenol] 650 mg PO Q6HR PRN tablet 08/10/17 [Rx] Aspirin [Lo-Dose Aspirin EC] 81 mg PO DAILY 10/07/17 [History] Atorvastatin [Lipitor] 80 mg PO HS 10/07/17 [History] Metoprolol [Lopressor] 50 mg PO BID 10/07/17 [History] Ranitidine HCl [Heartburn Relief] 150 mg PO HS 01/29/18 [History] Isosorbide MONOnitrate (24 HR) [Imdur] 30 mg PO DAILY 06/11/19 [History] Losartan Potassium 25 mg PO DAILY 06/11/19 [History] Allergy/AdvReac Type Severity Reaction Status Date / Time Cyclobenzaprine Allergy Hallucinati Verified 06/10/19 22:21 [From Flexeril] ng Penicillins Allergy See Verified 06/10/19 22:21 Comments wellbutrin AdvReac Insomnia Uncoded 06/10/19 22:21 All Systems PM: A 10-system review of systems was performed and is negative for pertinent fi ndings except as documented above in the HPI. - Constitutional Vitals: Temp Pulse Resp BP Pulse Ox 98.4 F 75 17 132/77 98 06/10/19 22:21 06/11/19 01:18 06/11/19 01:18 06/11/19 01:18 06/11/19 01:18 Exam: . Internal Med - H&P Results - Labs CBC & Chem 7: 06/10/19 22:20 06/10/19 22:20 Labs: Short CBC 06/10/19 Range/Units 22:20 WBC 6.9 (4.3-11.1) K/mcL Hgb 15.1 (12.9-16.9) g/dL Hct 44.2 (37.5-50.1) % Plt Count 186 (140-400) K/mcL Neutrophils # 4.3 (1.6-8.9) K/mcL BMP 06/10/19 22:20 Sodium 138 Potassium 3.7 Chloride 104 Carbon Dioxide 24 BUN 18 Creatinine 0.68 L Glucose 285 H Calcium 9.2 Cardiac Enzymes 06/10/19 06/11/19 Range/Units 22:20 00:23 Troponin I < 0.03 < 0.03 (< 0.04) ng/mL Liver Function 06/10/19 Range/Units 22:10 Total Bilirubin 0.8 (0.3-1.0) mg/dL Direct Bilirubin 0.2 (0.0-0.2) mg/dL AST 16 (13-39) Units/L ALT 20 (7-52) Units/L Alkaline Phosphatase 127 H (34-104) Units/L Albumin 4.2 (3.5-5.7) g/dL - Impressions ITS Impressions Chest X-Ray 06/10/19 22:10 IMPRESSION: Mild prominence of interstitial lung markings may represent mild pulmonary venous congestion. No evidence of florencio pulmonary edema. Correlation with volume status is recommended. No evidence of focal consolidation, pneumothorax, or significant pleural effusion. D/ / 06/10/2019 22:45:11 Dom Barajas MD / [email or web address] Interpreting Provider: Dom Barajas MD - Time Spent With Patient Total time spent is greater than 50% in coordination of care (as documented) at patient's floor/unit and/or counseling patient:
[2019-06-11 08:37] LABS: INR 1.1; Prothrombin Time 12.1 Seconds (9.4-12.1)
[2019-06-11 08:39] LABS: Activated Partial Thrombo Time 30.4 Seconds (26.0-36.0)
[2019-06-11 08:40] LABS: Heparin anti-factor XA UFH 0.04 IU/mL (0.30-0.70)
[2019-06-11] MEDS ORDERED: Aspirin Enteric Coated 81 MG Tablet PO SCH (09:00)
[2019-06-11] MEDS ORDERED: Isosorbide MONOnitrate (24 HR) 30 MG TAB.ER.24H PO SCH (09:00)
[2019-06-11] MEDS ORDERED: *HR* Dextrose 50 % in Water (Syg) 50 ML SYRINGE IVP PRN (10:03)
[2019-06-11] MEDS ORDERED: Dextrose Gel 15 GM/37.5 ML TUBE PO PRN ×2 (10:03)
[2019-06-11] MEDS ORDERED: D5% in Water 1,000 ML IVC PRN (10:03)
--- NOTE | 2019-06-11 11:16 | Cardiology Consult Note ---
Date of Encounter: 06/11/19 Time of Encounter: 11:00 Assessment and Plan (1) Chest pain Current Visit: Yes Status: Acute Per Cardiology: Atypical chest pain worse with deep inspiration and palpation, reproducible today upon exam. Troponins negative 3. ECG with no acute ischemia. Echo pending. I had lengthy discussion with patient and mother regarding further ischemic evaluation, however this point agreeable to await echo results. If no significant findings anticipate discharge to home and follow-up in outpatient setting. We discussed titration of long-acting nitrate, however patient prefers to monitor. Will discuss and review with Dr. Baca. Qualifiers: Chest pain type: unspecified Qualified Code(s): R07.9 - Chest pain, unspecified (2) CAD (coronary artery disease) Current Visit: No Status: Chronic Per Cardiology: [facility] 08/2017: Lesion Findings/Interventions * Left Main Coronary Artery The LMCA is angiographically free of disease. * Left Anterior Descending There is a 70-80% stenosis in the Proximal LAD. * Circumflex There is a 100% stenosis in the Mid Circumflex. There is a 70% stenosis in the 1st Major Marginal. There is a 100% stenosis in the 2nd Major Marginal that fill late from ipsilateral collaterals with GERA 2 flow. * Right Coronary Artery There is a 100% stenosis in the Mid RCA. There are Left to Right Collaterals filling the PDA. Underwent CABG x 4 at [facility] 08/2017. On aspirin, statin, beta jessica, ARB, and long-acting nitrate. Qualifiers: Coronary Disease-Associated Artery/Lesion type: bypass graft [place] vs. transplanted heart: [place] heart Associated angina: with unspecified angina Qualified Code(s): I25.709 - Atherosclerosis of coronary artery bypass graft(s), unspecified, with unspecified angina pectoris Discussion w patient/family: The assessment and plan as outlined above was discussed with the patient and/or family members who expressed understanding and agreement. All questions were answered. Thank you for involving us in the care of your patient. Please call with any questions. History of Present Illness Consult date: 06/11/19 Consult reason: CP Chief complaint: CP History of present illness: Mr. Wood is a 49 year old male with a relevant past medical history of diabetes mellitus, HTN, HLD, GERD, CAD with CABG x 4 in August 2017. Cardiology consult for chest pain. Patient seen with mother at bedside. Reports his normal state of health until yesterday evening. Reports walking caring a lunch bag and developed mid sternal/midepigastric pressure about 7 out of 10 pain. He reports did not take nitroglycerin pills. He reports in the ER pain somewhat improved with morphine and continues to be 4 out of 10. Patient reports pain worse with palpation and deep inspiration. Patient reports he does not have chronic pain from bypass surgery. He denies any recent falls or trauma. Prior to this episode he been chest pain-free. He denies any fatigue or dyspnea exertion. Reports able to carry on his normal activities until yesterday. He denies any palpitations, d izziness, syncope, falls. Denies any active bleeding or blood loss. Past Med Surg Social Fam HX - Past Medical History Attestation: Yes The following information was validated with the patient. Source: patient, old records reviewed, obtained from family Medical history: coronary artery disease, diabetes, GERD, hyperlipidemia, hypertension, myocardial infarction Psychiatric history: no psych history - Past Surgical History Surgical History: coronary bypass (CABG) Additional surgical history: Right Wrist - Social History Smoking Status: Never smoker Smokeless Tobacco Status: No Alcohol use: none Drug use: none - Family History Mother Adopted: No Family Member Ethnicity: Non- Living Status: Still Living Hx Family Cardiac Disorders: No Hx Family Respiratory Disorders: No Hx Family Cancer: No Hx Family GI Disorders: Yes (slow GI bleed) Hx Family Endocrine Disorder: No Hx Family Neuromuscular Disorders: No Hx Family Neurologic Disorders: No Hx Family HEENT Disorders: No Hx Family Autoimmune Disorders: No Medications and Allergies Acetaminophen [Tylenol] 650 mg PO Q6HR PRN tablet 08/10/17 [Rx] Aspirin [Lo-Dose Aspirin EC] 81 mg PO DAILY 10/07/17 [History] Atorvastatin [Lipitor] 80 mg PO HS 10/07/17 [History] Metoprolol [Lopressor] 50 mg PO BID 10/07/17 [History] Ranitidine HCl [Heartburn Relief] 150 mg PO HS 01/29/18 [History] Isosorbide MONOnitrate (24 HR) [Imdur] 30 mg PO DAILY 06/11/19 [History] Losartan Potassium 25 mg PO DAILY 06/11/19 [History] 3 Allergy/AdvReac Type Severity Reaction Status Date / Time Cyclobenzaprine Allergy Hallucinati Verified 06/10/19 22:21 [From Flexeril] ng Penicillins Allergy See Verified 06/10/19 22:21 Comments wellbutrin AdvReac Insomnia Uncoded 06/10/19 22:21 All Systems Review: The remainder of the systems were reviewed and are negative - Cardiovascular Cardiovascular: as per HPI, chest pain at rest Physical Examination Vital Signs, Last 4 Hours Temp Resp BP Pulse Ox 06/11/19 08:14 98.0 F 16 123/76 97 General: Conversant, No Apparent Distress HEENT: Atraumatic, Normocephaly, Mucus Membranes Moist Neck: No JVD, Normal carotid pulses Cardiac: Reg Rate and Rhythm, Normal S1 and S2, No Murmur Lungs: Normal Breath Sounds, No Wheeze, Rales, Rhonchi Neuro: Alert and responsive, No focal deficits noted Abdomen: Soft, Non-Tender Skin: No rashes noted on visualized skin Musculoskeletal: No Chest Wall Tenderness, Other (Mid epigastric/mid sternal chest discomfort worse with palpation and deep inspiration today) Extremities: No Clubbing, No Cyanosis, No Edema, Normal Pulses Results 06/10/19 22:20 06/10/19 22:20 Lab Results Laboratory Tests 06/10/19 06/10/19 06/10/19 22:10 22:20 22:20 Hgb 15.1 Hct 44.2 INR Creatinine 0.68 L Est GFR (Non-Af Amer) > 60 AST 16 ALT 20 Troponin I < 0.03 06/11/19 06/11/19 06/11/19 00:23 08:14 08:14 Hgb Hct INR 1.1 Creatinine Est GFR (Non-Af Amer) AST ALT Troponin I < 0.03 < 0.03 ITS Impressions Chest X-Ray 06/10/19 22:10 IMPRESSION: 1. Mild prominence of interstitial lung markings may represent mild pulmonary venous congestion. No evidence of florencio pulmonary edema. Correlation with volume status is recommended. 2. No evidence of focal consolidation, pneumothorax, or significant pleural effusion. D/ / 06/10/2019 22:45:11 Dom Barajas MD / [email or web address] Interpreting Provider: Dom Barajas MD Active Medications Acetaminophen (Tylenol) 650 mg PO Q6HR PRN PRN Reason: Mild Pain Stop: 12/11/19 01:46 Last Admin: 06/11/19 11:27 Dose: 650 mg Documented by: Aspirin (Aspirin Ec) 81 mg PO DAILY [facility] Stop: 12/11/19 09:01 Last Admin: 06/11/19 11:27 Dose: 81 mg Documented by: Atorvastatin Calcium (Lipitor) 80 mg PO HS [facility] Stop: 12/11/19 21:01 Dextrose/Water (Dextrose 50% (Syg)) 25 ml IVP AD PRN PRN Reason: Hypoglycemia Stop: 12/11/19 10:04 Famotidine (Pepcid) 20 mg PO HS [facility] Stop: 12/11/19 21:01 Glucagon (Glucagen) 1 mg IM ONCE PRN PRN Reason: Hypoglycemia Stop: 12/11/19 10:04 Glucose (Gluctose) 15 gm PO ONCE PRN PRN Reason: Hypoglycemia Stop: 12/11/19 10:04 Glucose (Gluctose) 30 gm PO ONCE PRN PRN Reason: Hypoglycemia Stop: 12/11/19 10:04 Dextrose (Dextrose 5%) 1,000 mls @ 100 mls/hr IVC .Q10H PRN PRN Reason: HYPOGLYCEMIA Stop: 12/11/19 10:04 Insulin Human Lispro (Humalog) 0 units SQ TIDAC [facility]; Protocol Stop: 12/11/19 11:31 Isosorbide Mononitrate (Imdur) 30 mg PO DAILY [facility] Stop: 12/11/19 09:01 Last Admin: 06/11/19 11:27 Dose: 30 mg Documented by: Losartan Potassium (Cozaar) 25 mg PO DAILY [facility]; Protocol Stop: 12/11/19 09:01 Last Admin: 06/11/19 11:27 Dose: 25 mg Documented by: Metoprolol Tartrate (Lopressor) 50 mg PO BID [facility] Stop: 12/11/19 09:01 Last Admin: 06/11/19 11:27 Dose: 50 mg Documented by: - Imaging and Cardiology Echo: pending Cardiac cath: report reviewed - EKG Interpretation EKG results cardiology: personally reviewed, normal ECG, sinus rhythm, no diagnostic ischemia Consult Discharge Plan - Plan Referrals: NONE,PCP [Primary Care Provider] -
[2019-06-11] MEDS ORDERED: Insulin LISPRO 300 UNITS/3 ML VIAL SQ SCH (11:30)
[2019-06-11] MEDS ORDERED: Perflutren Lipid Microsphere 1.3 ML in 0.9 % Sodium Chloride 8.7 ML IVP ONE (11:58)
--- NOTE | 2019-06-11 14:04 | Event Note ---
Date of Encounter: 06/11/19 Time of Encounter: 14:02 Patient seen and examined at bedside. Patient presented to the emergency department yesterday with complaint of chest pain. Patient got aspirin 325 mg by mouth once. Patient did not get a nitroglycerin due to history of ventricular pressure drop with nitroglycerin. Patient EKG was within normal limit. Patient troponin was within normal limit. Patient has a history of coronary artery bypass [facility] 4 [facility]. Patient currently getting morphine for chest pain. Reports his pain 4 out of 10 in intensity. Echocardiogram ordered. Cardiology consult ordered. Further recommendation based on the Echo finding and per cardiology.
--- NOTE | 2019-06-11 14:33 | Event Note ---
Date of Encounter: 06/11/19 Time of Encounter: 14:30 - Cardiology Event Note ECHO: Impressions: LVEF 50-55%. Normal LV chamber size, wall thickness and function. Mild left ventricular diastolic dysfunction. Atypical septal motion consistent with bundle branch block. Normal right ventricular structure and function. No evidence of pulmonary hypertension. No significant valvular dysfunction. Left Ventricular Wall Motion: Rest Echo Findings All wall segments showed normal motion. Discussed and reviewed with Dr. Baca, cardiology signing off, reconsult as needed, follow-up arranged. Patient and mother are agreeable to outpatient follow-up.
[2019-06-11 15:46] VITALS: BP 109/62
--- NOTE | 2019-06-11 16:07 | Discharge Summary ---
- NOTES TO OUTPATIENT PROVIDER Notes to Outpatient Provider: Patient is a 49-year-old male with past medical history of coronary artery disease status post coronary artery bypass graft in 2017 was presented to the emergency room yesterday complaining of chest pain. Her initial presentation patient blood work including troponin, EKG and echo was within normal limits. Patient was given morphine once for the pain. Patient had workup done which was negative for any cardiac etiology. Reports that he follow-up with Dr. Theodore outpatient. Patient was discharged in stable condition. Follow up with Dr. Theodore outpatient. Estimated PT Needs at Discharge: None Date of Encounter: 06/11/19 Time of Encounter: 16:05 - Discharge Diagnosis (1) Unstable angina Priority: Primary Status: Resolved Comments: Ruled out cardiac etiology (2) CAD (coronary artery disease) Priority: Secondary Status: Chronic Qualifiers: Coronary Disease-Associated Artery/Lesion type: bypass graft [place] vs. transplanted heart: [place] heart Associated angina: with unspecified angina Qualified Code(s): I25.709 - Atherosclerosis of coronary artery bypass graft(s), unspecified, with unspecified angina pectoris (3) Diabetes mellitus type 2 in obese Priority: Secondary Status: Chronic (4) Obesity (BMI 30-39.9) Priority: Secondary Status: Chronic (5) Chest pain Priority: Secondary Status: Resolved Qualifiers: Chest pain type: other chest pain Qualified Code(s): R07.89 - Other chest pain; R07.8 - Other chest pain Hospital course: Mr. Wood is a 49 year old male Patient is a 49-year-old male with past medical history of coronary artery disease status post coronary artery bypass graft in 2017 was presented to the emergency room yesterday complaining of chest pain. His initial presentation patient blood work including troponin, EKG and echo was within normal limits. Patient was given morphine once for the pain. Patient had workup done which was negative for any cardiac etiology. Cardiology was consulted for any further recommendation. Patient had initial workup including echo was negative. Cardiac recommended further workup as an outpatient basis. Patient reports that he follow-up with Dr. Theodore outpatient. Patient was discharged in stable condition. Follow up with Dr. Theodore outpatient. Discharge discussed with: patient, family - Time Spent with Patient Total time spent providing and/or coordinating discharge services: 40 Time spent: Greater than 30 minutes - Discharge Medications Prescriptions: Continued Acetaminophen [Tylenol] 650 mg PO Q6HR PRN tablet PRN Reason: Mild Pain Metoprolol [Lopressor] 50 mg PO BID Atorvastatin [Lipitor] 80 mg PO HS Aspirin [Lo-Dose Aspirin EC] 81 mg PO DAILY Ranitidine HCl [Heartburn Relief] 150 mg PO HS Losartan Potassium 25 mg PO DAILY Isosorbide MONOnitrate (24 HR) [Imdur] 30 mg PO DAILY Home Medications: Acetaminophen [Tylenol] 650 mg PO Q6HR PRN tablet 08/10/17 [Rx] Aspirin [Lo-Dose Aspirin EC] 81 mg PO DAILY 10/07/17 [History] Atorvastatin [Lipitor] 80 mg PO HS 10/07/17 [History] Metoprolol [Lopressor] 50 mg PO BID 10/07/17 [History] Ranitidine HCl [Heartburn Relief] 150 mg PO HS 01/29/18 [History] Isosorbide MONOnitrate (24 HR) [Imdur] 30 mg PO DAILY 06/11/19 [History] Losartan Potassium 25 mg PO DAILY 06/11/19 [History] Allergies/Adverse Reactions: Allergy/AdvReac Type Severity Reaction Status Date / Time Cyclobenzaprine Allergy Hallucinati Verified 06/10/19 22:21 [From Flexeril] ng Penicillins Allergy See Verified 06/10/19 22:21 Comments wellbutrin AdvReac Insomnia Uncoded 06/10/19 22:21 Date of admission: 06/11/19 00:54 Primary care physician: PCP NONE Consults: 06/11/19 08:49 Consult to Cardiology [CONS] Stat Comment: Consulting Provider: [facility] [place] Reason for Consult: Stevan pain s/p CABG 2017 Call Completed: Yes Discharging clinician: John Barajas - Constitutional Vitals: Temp Pulse Resp BP Pulse Ox 98.1 F 66 16 109/62 94 06/11/19 15:42 06/11/19 15:42 06/11/19 15:42 06/11/19 15:42 06/11/19 15:42 General appearance: Present: A&O X 0, cooperative Exam: General: A & O 3, In no acute distress HENNT: PERRLA. Head atraumatic and makes supple CVS S1 and S2 regular, no murmur RS: Clear to air entry bilaterally, no wheeze, no crackles Abdomen: Soft and nontender. Bowel sounds normal 4 Extremities: No cyanosis, clubbing, and edema Neurology: Cranial II-XII normal. Motor strength 5/5 bilaterally. Sensation intact - Patient Status Disposition: Home, Self-Care Condition: Good Overall status at discharge: patient is progressing back to baseline - Discharge Instructions Follow Up With: NONE,PCP [Primary Care Provider] - Forms: ED Satisfaction Letter - Diet and Activity Activity: increase activity as tolerated Diet: diabetic diet, low salt diet
[2019-06-11] MEDS ORDERED: Famotidine 20 MG TABLET PO SCH (21:00)
--- NOTE | 2019-06-13 06:28 | Electrocardiograph Report ---
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
== END 2019-06-11 17:10 | disposition home or self-care (01) ==
LOC: 3BNU 22:06 → EMEROOARM 22:06 → SUATTDRO 06-11 00:54 → 3BNU 06-11 00:57
PROVIDERS: ADMIT Internal Medicine; ATTEND Family Medicine

== ENCOUNTER 2019-07-07 11:07 | Observation (INO) ==
[2019-07-07 12:05] LABS: Basophils % 0.3 %; Eosinophils # 0.1 K/mcL (0.0-0.6); Eosinophils % 1.2 %; Hematocrit 45.9 % (37.5-50.1); Hemoglobin 15.6 g/dL (12.9-16.9); Immature Granulocytes % 0.5 % (0-4); Lymphocytes # 2.4 K/mcL (0.6-4.6); Lymphocytes % 32.8 %; Mean Corpuscular Hemoglobin 28.9 pg (28.0-33.3); Mean Platelet Volume 11.3 fL (9.4-12.4); Monocytes # 0.4 K/mcL (0.0-1.3); Monocytes % 5.2 %; Neutrophils # 4.5 K/mcL (1.6-8.9); Platelet Count 192 K/mcL (140-400); Red Cell Distribution Width 12.7 % (11.5-14.5); White Blood Count 7.5 K/mcL (4.3-11.1)
[2019-07-07 12:13] LABS: Prothrombin Time 11.5 Seconds (9.4-12.1)
[2019-07-07 12:15] LABS: Activated Partial Thrombo Time 30.1 Seconds (26.0-36.0); BUN/Creatinine Ratio 21 (6-26); Blood Urea Nitrogen 13 mg/dL (6-20); Calcium 9.4 mg/dL (8.6-10.3); Carbon Dioxide 26 mEq/L (23-29); Chloride 99 mEq/L (98-107); Glucose 350 mg/dL (70-105); Osmolality,Calculated 294 (280-300); Potassium 4.3 mEq/L (3.5-5.1); Sodium 135 mEq/L (136-145); Troponin I < 0.03 ng/mL (< 0.04); eGFR For African Americans > 60 (> 60); eGFR For Non-African Americans > 60 (> 60)
[2019-07-07 12:22] LABS: Bilirubin,Urine Negative (Negative); Blood,Urine Negative (Negative); Clarity,Urine Clear (Clear); Color,Urine Yellow (Yellow); Glucose,Urine (UA) >=1000 mg/dL (Normal); Ketones,Urine Negative (Negative); Leukocyte Esterase,Urine Negative (Negative); Nitrite,Urine Negative (Negative); Protein,Urine Negative (Neg-Trace); Specific Gravity,Urine > 1.030 (1.010-1.025)
[2019-07-07] MEDS ORDERED: Nitroglycerin 0.4 MG TAB.SUBL SL PRN (12:46)
[2019-07-07] MEDS ORDERED: Aspirin 325 MG TABLET PO ONE (12:46)
--- NOTE | 2019-07-07 12:51 | Emergency Department Note ---
Disposition Clinical Impression: Syncope Qualifiers: Syncope type: unspecified Qualified Code(s): R55 - Syncope and collapse Chest pain Qualifiers: Chest pain type: unspecified Qualified Code(s): R07.9 - Chest pain, unspecified Disposition: Admitted As Inpatient Condition: Good Referrals: NONE,PCP [Primary Care Provider] - Forms: ED Satisfaction Letter Time of Disposition: 15:37 General Adult HPI - General Chief complaint: ED Chest Pain Stated complaint: chest pain Time Seen by Provider: 07/07/19 11:32 Source: patient Mode of arrival: private vehicle Limitations: no limitations Nursing Notes Reviewed: Yes Vital Signs Reviewed: Yes - History of Present Illness HPI Narrative: 49-year-old male with a past medical history of a 5 way CABG that reports passing out in the parking lot of a local business this morning and falling face first into his car. He states that he fell hard enough to dent the car. Patient was recently admitted at this facility where he underwent a stress test and they stated that there were no significant changes to his stress test during that admission. He reports chest pain of a 2 out of 10 at this time but he states that this is fairly normal for him. He also states that he does not have any when necessary nitroglycerin, however he does take a long-acting isosorbide. He reports some lateral neck pain on the left, but denies any midline cervical tenderness. Patient also states that he did not know he was going to pass out he simply woke up on the ground and saw a dent in his car. Pain Scale: 3 - Related Data Home Medications Medication Instructions Recorded Confirmed Aspirin [Lo-Dose Aspirin EC] 81 mg PO DAILY 10/07/17 07/07/19 Atorvastatin [Lipitor] 80 mg PO HS 10/07/17 07/07/19 Metoprolol [Lopressor] 50 mg PO BID 10/07/17 07/07/19 Ranitidine HCl [Heartburn Relief] 150 mg PO HS 01/29/18 07/07/19 Isosorbide MONOnitrate (24 HR) 30 mg PO DAILY 06/11/19 07/07/19 [Imdur] Losartan Potassium 25 mg PO DAILY 06/11/19 07/07/19 Allergies Allergy/AdvReac Type Severity Reaction Status Date / Time Cyclobenzaprine Allergy Hallucinati Verified 06/10/19 22:21 [From Flexeril] ng Penicillins Allergy See Verified 06/10/19 22:21 Comments wellbutrin AdvReac Insomnia Uncoded 06/10/19 22:21 Review of Systems: In addition to that documented in the HPI above, the additional ROS was obtained: Constitutional: Denies fevers or chills Eyes: Denies vision changes ENMT: Denies sore throat CV: Reports chest pain Resp: Denies SOB GI: Denies vomiting or diarrhea : Denies painful urination MSK: Reports falling this morning after syncope Skin: Denies new rashes Neuro: Denies new numbness or tingling or weakness Reports episode of syncope this morning Heme: Denies bleeding disorders Past Medical History - Past Medical History Attestation: Yes The following information was validated with the patient. Medical history: Reports: coronary artery disease, diabetes, GERD, hyperlipidemia, hypertension, myocardial infarction Surgical history: Reports: coronary bypass (CABG) Psychiatric history: Reports: no psych history - Social History Smoking Status: Never smoker Smokeless Tobacco Status: No Alcohol use: Reports: none Drug use: Reports: none Physical Exam General: A&O x 3. No acute distress. Well developed, well nourished. Head: atraumatic, normocephalic. Tenderness to palpation of right zygomatic bone on the anterior aspect. ENT: No conjunctival injection, no scleral icterus. PERRLA. EOMI. Oropharynx non- erythematous. mucous membranes moist. Neuro: No focal deficits, no speech deficit, no facial droop, mentating well. BUE/BLE Str 5/5. Sally UE/LE sensation intact. CN II-XII intact. Cerebellar testing with [id number] and bvjf-wl-bisn intact. Pulm: Lungs CTAB A/P. No wheezes, rales, ronchi. Cardio: RRR no m/r/g. Chest not tender to palpation. Abd: Soft, non-distended. Normoactive bowel sounds. Non-tender to palpation. No guarding. Non rigid. Extremities: Radial pulses 2+ sally, dorsalis pedis/posterior tibialis 2+ sally. Mild, non-pitting LE edema. No cyanosis, clubbing. Skin: warm, dry, intact. No rashes. Psych: Appropriate mood and affect. Answers questions appropriately. Cooperative with exam. - General Limitations: no limitations General appearance: alert, in no apparent distress Course Vital Signs Temperature 98.2 F 07/07/19 11:16 Pulse Rate 72 07/07/19 11:16 Respiratory Rate 13 07/07/19 11:16 Blood Pressure 156/92 07/07/19 11:16 O2 Sat by Pulse Oximetry 98 07/07/19 11:16 Temperature 98.2 F 07/07/19 11:16 Pulse Rate 67 07/07/19 14:53 Respiratory Rate 15 07/07/19 14:53 Blood Pressure 125/76 07/07/19 14:53 O2 Sat by Pulse Oximetry 98 07/07/19 14:53 Oxygen Delivery Oxygen Delivery Room Air Medical Decision Making - MDM Narrative Medical decision making narrative: 49-year-old male with past medical history significant for 5 way CABG, they reported one episode of syncope this morning with a subsequent fall onto his face into his car. Palpation of cervical spine does not elicit any midline tenderness, he has tenderness on the left lateral aspect in the soft tissue. He has full range of motion of his cervical spine without difficulty. There is tenderness to palpation of facial bones, will obtain Head & Facial bone CT without contrast. Will get EKG and cardiac workup to include CBC, BMP, troponin. Suspect the patient will need to be admitted given his history. 1522: Patient's imaging is negative for acute fracture. However given patient's significant cardiac history as well as reported chest pain, he could benefit from further inpatient workup. Patient was recently admitted and received an echocardiogram, however patient states that last time he had his bypass there was no changes except when they went to do the cath. Believe that he could use consult with cardiology. 1552: Patient was admitted to the hospitalist, Dr. Mondragon, who agreed to accept the patient to his service. Results of the workup including any imaging and/or labwork was shared with the patient at bedside. Patient was given an opportunity to ask questions at bedside and all of their concerns were addressed. Patient verbalized understanding and agreement with plan of care. Pt remained stable while in the department. - Medical Records Medical records reviewed: Yes I reviewed the patient's medical records. - Lab Data Lab results reviewed: Yes I reviewed the patient's lab results. Result diagrams: 07/07/19 11:21 07/07/19 11:21 Lab Results 08/30/19 08/30/19 08/30/19 Range/Units 11:21 11:21 11:21 WBC 7.5 (4.3-11.1) K/mcL RBC 5.40 (4.19-5.50) M/mcL Hgb 15.6 (12.9-16.9) g/dL Hct 45.9 (37.5-50.1) % MCV 85.0 (83.0-100.0) fL MCH 28.9 (28.0-33.3) pg MCHC 34.0 (31.6-35.5) g/dL RDW 12.7 (11.5-14.5) % Plt Count 192 (140-400) K/mcL MPV 11.3 (9.4-12.4) fL Immature Gran % 0.5 (0-4) % Seg Neutrophils % 60.0 % Lymphocytes % 32.8 % Monocytes % 5.2 % Eosinophils % 1.2 % Basophils % 0.3 % Neutrophils # 4.5 (1.6-8.9) K/mcL Lymphocytes # 2.4 (0.6-4.6) K/mcL Monocytes # 0.4 (0.0-1.3) K/mcL Eosinophils # 0.1 (0.0-0.6) K/mcL Basophils # 0.0 (0.0-0.2) K/mcL PT 11.5 (9.4-12.1) Seconds INR 1.0 APTT 30.1 (26.0-36.0) Seconds Sodium 135 L (136-145) mEq/L Potassium 4.3 (3.5-5.1) mEq/L Chloride 99 (98-107) mEq/L Carbon Dioxide 26 (23-29) mEq/L BUN 13 (6-20) mg/dL Creatinine 0.61 L (0.70-1.30) mg/dL Est GFR ( Amer) > 60 (> 60) Est GFR (Non-Af Amer) > 60 (> 60) BUN/Creatinine Ratio 21 (6-26) Glucose 350 H (70-105) mg/dL Calculated Osmolality 294 (280-300) Calcium 9.4 (8.6-10.3) mg/dL Troponin I < 0.03 (< 0.04) ng/mL Urine Color (Yellow) Urine Clarity (Clear) Urine pH (5.0-8.0) pH Units Ur Specific [place] (1.010-1.025) Urine Protein (Neg-Trace) mg/dL Urine Glucose (UA) (Normal) mg/dL Urine Ketones (Negative) mg/dL Urine Blood (Negative) Urine Nitrite (Negative) Urine Bilirubin (Negative) Urine Urobilinogen (Normal) mg/dL Ur Leukocyte Esterase (Negative) 07/07/19 Range/Units 12:12 WBC (4.3-11.1) K/mcL RBC (4.19-5.50) M/mcL Hgb (12.9-16.9) g/dL Hct (37.5-50.1) % MCV (83.0-100.0) fL MCH (28.0-33.3) pg MCHC (31.6-35.5) g/dL RDW (11.5-14.5) % Plt Count (140-400) K/mcL MPV (9.4-12.4) fL Immature Gran % (0-4) % Seg Neutrophils % % Lymphocytes % % Monocytes % % Eosinophils % % Basophils % % Neutrophils # (1.6-8.9) K/mcL Lymphocytes # (0.6-4.6) K/mcL Monocytes # (0.0-1.3) K/mcL Eosinophils # (0.0-0.6) K/mcL Basophils # (0.0-0.2) K/mcL PT (9.4-12.1) Seconds INR APTT (26.0-36.0) Seconds Sodium (136-145) mEq/L Potassium (3.5-5.1) mEq/L Chloride (98-107) mEq/L Carbon Dioxide (23-29) mEq/L BUN (6-20) mg/dL Creatinine (0.70-1.30) mg/dL Est GFR ( Amer) (> 60) Est GFR (Non-Af Amer) (> 60) BUN/Creatinine Ratio (6-26) Glucose (70-105) mg/dL Calculated Osmolality (280-300) Calcium (8.6-10.3) mg/dL Troponin I (< 0.04) ng/mL Urine Color Yellow (Yellow) Urine Clarity Clear (Clear) Urine pH 6.0 (5.0-8.0) pH Units Ur Specific [place] > 1.030 H (1.010-1.025) Urine Protein Negative (Neg-Trace) mg/dL Urine Glucose (UA) >=1000 H (Normal) mg/dL Urine Ketones Negative (Negative) mg/dL Urine Blood Negative (Negative) Urine Nitrite Negative (Negative) Urine Bilirubin Negative (Negative) Urine Urobilinogen 2.0 H (Normal) mg/dL Ur Leukocyte Esterase Negative (Negative) - Radiology Data Radiology results reviewed: Yes I reviewed the patient's radiology results. Chest X-Ray 07/07/19 11:51 IMPRESSION: 1. No active pulmonary disease. 2. Stable cardiomegaly without overt failure. D/ / Tao Arvizu MD / Tao Arvizu MD Interpreting Provider: Tao Arvizu MD Head CT 07/07/19 11:52 IMPRESSION: 1. No acute intracranial abnormality. 2. No evidence of an acute facial bone fracture. 3. Soft tissue swelling along the posterior right scalp. D/ / 07/07/2019 13:01:32 Ethan Cunningham MD / jyoti Interpreting Provider: Ethan Cunningham MD Face CT 07/07/19 11:56 IMPRESSION: 1. No acute intracranial abnormality. 2. No evidence of an acute facial bone fracture. 3. Soft tissue swelling along the posterior right scalp. D/ / 07/07/2019 13:01:32 Ethan Cunningham MD / jyoti Interpreting Provider: Ethan Cunningham MD - EKG Data EKG #1 EKG attestation: Yes I reviewed and interpreted this EKG. EKG results narrative: Heart rate 70, rhythm sinus, axis left. 133, QRS 141 and prolonged, QTC 428. There is some elevation of the J-point in leads 3, aVF. These changes are also seen on previous EKG dated 06/10/2019. Less than [address] depression noted in lead aVL also present on previous exam. Less than [address] elevation noted in lead aVF also present on previous exam. Abnormal R-wave progression noted. No RSR pattern noted in precordial leads. Nonspecific interventricular conduction delay noted with prolongation of QRS beyond 120. Heart Score - Score History: Moderately Suspicious EKG: Significant ST-Depression Age: 45-65 Risk Factors: Equal/Greater than 3 risk factor or history of atherosclerotic disease Troponin: Less than normal limit HEART Score Total: 6
--- NOTE | 2019-07-07 12:53 | Emergency Department Note ---
Disposition Clinical Impression: Syncope Qualifiers: Syncope type: unspecified Qualified Code(s): R55 - Syncope and collapse Chest pain Qualifiers: Chest pain type: unspecified Qualified Code(s): R07.9 - Chest pain, unspecified Disposition: Admitted As Inpatient Condition: Good Referrals: NONE,PCP [Primary Care Provider] - Forms: ED Satisfaction Letter Time of Disposition: 15:52 General Adult HPI - General Chief complaint: ED Chest Pain Stated complaint: chest pain Time Seen by Provider: 07/07/19 11:32 Source: patient Mode of arrival: private vehicle Limitations: no limitations Nursing Notes Reviewed: Yes Vital Signs Reviewed: Yes - History of Present Illness Pain Scale: 3 - Related Data Home Medications Medication Instructions Recorded Confirmed Aspirin [Lo-Dose Aspirin EC] 81 mg PO DAILY 10/07/17 07/07/19 Atorvastatin [Lipitor] 80 mg PO HS 10/07/17 07/07/19 Metoprolol [Lopressor] 50 mg PO BID 10/07/17 07/07/19 Ranitidine HCl [Heartburn Relief] 150 mg PO HS 01/29/18 07/07/19 Isosorbide MONOnitrate (24 HR) 30 mg PO DAILY 06/11/19 07/07/19 [Imdur] Losartan Potassium 25 mg PO DAILY 06/11/19 07/07/19 Allergies Allergy/AdvReac Type Severity Reaction Status Date / Time Cyclobenzaprine Allergy Hallucinati Verified 06/10/19 22:21 [From Flexeril] ng Penicillins Allergy See Verified 06/10/19 22:21 Comments wellbutrin AdvReac Insomnia Uncoded 06/10/19 22:21 Past Medical History - Past Medical History Medical history: Reports: coronary artery disease, diabetes, GERD, hyperlipidemia, hypertension, myocardial infarction Surgical history: Reports: coronary bypass (CABG) Psychiatric history: Reports: no psych history - Social History Smoking Status: Never smoker Smokeless Tobacco Status: No Alcohol use: Reports: none Drug use: Reports: none Physical Exam - General Limitations: no limitations General appearance: alert, in no apparent distress Course Vital Signs Temperature 98.2 F 07/07/19 11:16 Pulse Rate 72 07/07/19 11:16 Respiratory Rate 13 07/07/19 11:16 Blood Pressure 156/92 07/07/19 11:16 O2 Sat by Pulse Oximetry 98 07/07/19 11:16 Temperature 98.2 F 07/07/19 11:16 Pulse Rate 67 07/07/19 14:53 Respiratory Rate 15 07/07/19 14:53 Blood Pressure 125/76 07/07/19 14:53 O2 Sat by Pulse Oximetry 98 07/07/19 14:53 Oxygen Delivery Oxygen Delivery Room Air Medical Decision Making - Lab Data Result diagrams: 07/07/19 11:21 07/07/19 11:21 Lab Results 07/07/19 07/07/19 07/07/19 Range/Units 11:21 11:21 11:21 WBC 7.5 (4.3-11.1) K/mcL RBC 5.40 (4.19-5.50) M/mcL Hgb 15.6 (12.9-16.9) g/dL Hct 45.9 (37.5-50.1) % MCV 85.0 (83.0-100.0) fL MCH 28.9 (28.0-33.3) pg MCHC 34.0 (31.6-35.5) g/dL RDW 12.7 (11.5-14.5) % Plt Count 192 (140-400) K/mcL MPV 11.3 (9.4-12.4) fL Immature Gran % 0.5 (0-4) % Seg Neutrophils % 60.0 % Lymphocytes % 32.8 % Monocytes % 5.2 % Eosinophils % 1.2 % Basophils % 0.3 % Neutrophils # 4.5 (1.6-8.9) K/mcL Lymphocytes # 2.4 (0.6-4.6) K/mcL Monocytes # 0.4 (0.0-1.3) K/mcL Eosinophils # 0.1 (0.0-0.6) K/mcL Basophils # 0.0 (0.0-0.2) K/mcL PT 11.5 (9.4-12.1) Seconds INR 1.0 APTT 30.1 (26.0-36.0) Seconds Sodium 135 L (136-145) mEq/L Potassium 4.3 (3.5-5.1) mEq/L Chloride 99 (98-107) mEq/L Carbon Dioxide 26 (23-29) mEq/L BUN 13 (6-20) mg/dL Creatinine 0.61 L (0.70-1.30) mg/dL Est GFR ( Amer) > 60 (> 60) Est GFR (Non-Af Amer) > 60 (> 60) BUN/Creatinine Ratio 21 (6-26) Glucose 350 H (70-105) mg/dL Calculated Osmolality 294 (280-300) Calcium 9.4 (8.6-10.3) mg/dL Troponin I < 0.03 (< 0.04) ng/mL Urine Color (Yellow) Urine Clarity (Clear) Urine pH (5.0-8.0) pH Units Ur Specific [place] (1.010-1.025) Urine Protein (Neg-Trace) mg/dL Urine Glucose (UA) (Normal) mg/dL Urine Ketones (Negative) mg/dL Urine Blood (Negative) Urine Nitrite (Negative) Urine Bilirubin (Negative) Urine Urobilinogen (Normal) mg/dL Ur Leukocyte Esterase (Negative) 07/07/19 Range/Units 12:12 WBC (4.3-11.1) K/mcL RBC (4.19-5.50) M/mcL Hgb (12.9-16.9) g/dL Hct (37.5-50.1) % MCV (83.0-100.0) fL MCH (28.0-33.3) pg MCHC (31.6-35.5) g/dL RDW (11.5-14.5) % Plt Count (140-400) K/mcL MPV (9.4-12.4) fL Immature Gran % (0-4) % Seg Neutrophils % % Lymphocytes % % Monocytes % % Eosinophils % % Basophils % % Neutrophils # (1.6-8.9) K/mcL Lymphocytes # (0.6-4.6) K/mcL Monocytes # (0.0-1.3) K/mcL Eosinophils # (0.0-0.6) K/mcL Basophils # (0.0-0.2) K/mcL PT (9.4-12.1) Seconds INR APTT (26.0-36.0) Seconds Sodium (136-145) mEq/L Potassium (3.5-5.1) mEq/L Chloride (98-107) mEq/L Carbon Dioxide (23-29) mEq/L BUN (6-20) mg/dL Creatinine (0.70-1.30) mg/dL Est GFR ( Amer) (> 60) Est GFR (Non-Af Amer) (> 60) BUN/Creatinine Ratio (6-26) Glucose (70-105) mg/dL Calculated Osmolality (280-300) Calcium (8.6-10.3) mg/dL Troponin I (< 0.04) ng/mL Urine Color Yellow (Yellow) Urine Clarity Clear (Clear) Urine pH 6.0 (5.0-8.0) pH Units Ur Specific [place] > 1.030 H (1.010-1.025) Urine Protein Negative (Neg-Trace) mg/dL Urine Glucose (UA) >=1000 H (Normal) mg/dL Urine Ketones Negative (Negative) mg/dL Urine Blood Negative (Negative) Urine Nitrite Negative (Negative) Urine Bilirubin Negative (Negative) Urine Urobilinogen 2.0 H (Normal) mg/dL Ur Leukocyte Esterase Negative (Negative) Attestation Statement - Attestation Attestation: I examined this patient and my medical decision-making was reviewed with the Resident Physician. I agree with the documented findings, disposition and treatment plan as described except to the extent set forth below. Line Patient presents to the ED with a chief complaint of a syncopal episode. Patient was walking to his car this morning and woke up on the ground. He states he fell and hit his head against the door but does not remember any of it. No prodromal symptoms. He did have some chest pain is why for which he took his long-acting nitroglycerin. On exam he is in no distress with a soft abdomen. No trauma to his head. No cervical spine tenderness. Plan. CT facial bones and head. Cardiac workup. His workup is unremarkable. It is concerned the patient syncopized without having any prodromal symptoms. He has an extensive cardiac history including a [address] bypass. High risk for arrhythmia. We will observe. EKG reviewed with the resident.
[2019-07-07] MEDS ORDERED: GI Cocktail 40 ML EACH PO ONE (13:21)
[2019-07-07] MEDS ORDERED: Insulin Regular, Human 100 UNIT/ML SQ ONE (13:52)
[2019-07-07 15:52] LABS: Magnesium 1.8 mg/dL (1.6-2.6)
[2019-07-07] MEDS ORDERED: Naloxone 0.4 MG/ML INJ IVP PRN (16:49)
[2019-07-07] MEDS ORDERED: D5% in Water 1,000 ML IVC PRN (16:54)
[2019-07-07] MEDS ORDERED: Dextrose Gel 15 GM/37.5 ML TUBE PO PRN ×2 (16:54)
[2019-07-07] MEDS ORDERED: *HR* Dextrose 50 % in Water (Syg) 50 ML SYRINGE IVP PRN (16:54)
--- NOTE | 2019-07-07 17:21 | Internal Med History&Physical ---
<Benedicto Higgins M - Last Filed: 07/07/19 18:24> Date of Encounter: 07/07/19 Time of Encounter: 17:11 Internal Medicine - H&P: HPI Chief complaint: Chest pain Admitted From: Emergency Dept Plans for Post Hospital Care: Home History of present illness: Mr. Wood is a 49 year old male w/PMHx of 5 vessel CABG, CAD, HLD, T2DM. Presented to the [facility] ED today complaining of chest pain of 1 day duration and an episode of syncope. Mr. Wood reports an episode of left sided chest pain described as dull, achy, and without radiation that began last night around 10 PM while at home resting. He states that he took ASA for the pain which improved his symptoms. This morning pt reports dropping his grandchildren off at school and having a syncopal while walking back to his car. He describes an immediate LOC without prodromal symptoms that was unwitnessed. His head/face hit the side of his car during the episode and he reports some mild right sided facial discomfort. Mr. Wood follows with Dr. Theodore at [facility] for management following a 5 vessel CABG procedure performed in Jul 2017 at the [facility]. His first episode of chest pain in August of 2017, prior to his workup is reported as similar to his current symptoms. Also states that he had a similar episode of cp on 06/10/19 that is similar to his current pain. However this is his first episode of syncope. Mr. Wood had an extensive ED workup. EKG is unchanged from his 06/10/19 EKG and demonstrates HR 70, LAD, mild QRS prolongation, and no significant ST elevation or depression. Initial troponin <0.03. CXR was WNL, head/face CT negative for fracture or intracranial bleeding. Past Med Surg Social Fam HX - Past Medical History Medical history: coronary artery disease, diabetes, GERD, hyperlipidemia, hypertension, myocardial infarction Psychiatric history: no psych history - Past Surgical History Surgical History: coronary bypass (CABG) Additional surgical history: Right Wrist. CABG x5 - Social History Smoking Status: Never smoker Smokeless Tobacco Status: No Alcohol use: none Drug use: none - Family History Mother Adopted: No Family Member Ethnicity: Non- Living Status: Still Living Hx Family Cardiac Disorders: No Hx Family Respiratory Disorders: No Hx Family Cancer: No Hx Family GI Disorders: Yes (slow GI bleed) Hx Family Endocrine Disorder: No Hx Family Neuromuscular Disorders: No Hx Family Neurologic Disorders: No Hx Family HEENT Disorders: No Hx Family Autoimmune Disorders: No Internal Medicine - H&P: Meds Aspirin [Lo-Dose Aspirin EC] 81 mg PO DAILY 10/07/17 [History] Atorvastatin [Lipitor] 80 mg PO HS 10/07/17 [History] Metoprolol [Lopressor] 50 mg PO BID 10/07/17 [History] Ranitidine HCl [Heartburn Relief] 150 mg PO HS 01/29/18 [History] Isosorbide MONOnitrate (24 HR) [Imdur] 30 mg PO DAILY 06/11/19 [History] Losartan Potassium 25 mg PO DAILY 06/11/19 [History] Allergy/AdvReac Type Severity Reaction Status Date / Time Cyclobenzaprine Allergy Hallucinati Verified 06/10/19 22:21 [From Flexeril] ng Penicillins Allergy See Verified 06/10/19 22:21 Comments wellbutrin AdvReac Insomnia Uncoded 06/10/19 22:21 All Systems PM: A 10-system review of systems was performed and is negative for pertinent findings except as documented above in the HPI. - Constitutional Constitutional: falls (syncope), no chills, no excessive sweating, no fever(s) - EENT Eyes: no change in vision, no pain, no photophobia Ears: no decreased hearing, no tinnitus Nose, mouth and throat: facial pain (secondary to fall ), no dysphagia, no neck pain, no sore throat - Cardiovascular Cardiovascular ROS IM: chest pain, syncope, no diaphoresis, no dyspnea, no irregular heart rhythm, no palpitations - Respiratory Respiratory: no cough, no dyspnea, no wheezing - Gastrointestinal Gastrointestinal: heartburn, no abdominal pain, no constipation, no diarrhea, no nausea, no vomiting - Genitourinary Genitourinary ROS male: no difficulty urinating, no flank pain - Musculoskeletal Musculoskeletal ROS IM: no joint swelling, no muscle weakness, no neck pain - Integumentary Integumentary IM: no rash, no sores, no unusual bruising - Neurological Neurological ROS: no abnormal gait, no abnormal movements, no abnormal speech, no confusion, no dizziness, no paresthesias, no vertigo - Psychiatric Psychiatric: no behavioral changes, no confusion, no irritability - Endocrine Endocrine IM: no excessive sweating, no flushing - Hematologic/Lymphatic Hematologic/Lymphatic: no easy bleeding, no easy bruising - Allergic/Immunologic Allergic/Immunologic: no tongue swelling, no throat swelling, no wheezing - Constitutional Vitals: Temp Pulse Resp BP Pulse Ox 98.2 F 67 15 125/76 98 07/07/19 11:16 07/07/19 14:53 07/07/19 14:53 07/07/19 14:53 07/07/19 14:53 General appearance: Present: cooperative, A&O X 3, no acute distress, obese Exam: see below - Head Head exam: Present: atraumatic, normal inspection Additional comments: mild tenderness of the right zygomatic region to palpation - Expanded Head Exam Head exam expanded: Absent: abrasion, contusion - Eye Eye exam: Present: EOMI, normal appearance, conjuntiva pink. Absent: conjunctival injection, periorbital swelling Pupils: Present: normal accommodation, PERRL - ENT ENT exam: Present: mucous membranes moist - Neck Neck exam general surgery: Present: full ROM, trachea midline. Absent: lymphadenopathy, tenderness, thyromegaly - Respiratory Respiratory exam: Present: chest wall tenderness (mild anterior left sided tenderness), CTAB. Absent: decreased breath sounds, rales, rhonchi, wheezes - Cardiovascular Cardiovascular exam: Present: RRR, +S1, +S2. Absent: diastolic murmur, gallop, JVD, systolic murmur - GI/Abdominal GI/Abdominal exam: Present: normal bowel sounds, soft. Absent: distended, guard ing, hepatomegaly, tenderness - Extremities Exam Extremities exam: Present: full ROM, warm, radial pulses palpable and symmetrical. Absent: cyanotic, joint swelling, pedal edema, tenderness - Neurological Exam Neurological exam: Present: alert, altered, CN II-XII intact, reflexes normal, no focal deficits. Absent: motor sensory deficit, facial droop, speech deficit - Psychiatric Psychiatric exam: Present: normal affect, normal mood - Skin Skin exam: Present: dry, intact, warm. Absent: cyanosis Internal Med - H&P Results - Labs CBC & Chem 7: 07/07/19 11:21 07/07/19 11:21 Labs: Short CBC 07/07/19 Range/Units 11:21 WBC 7.5 (4.3-11.1) K/mcL Hgb 15.6 (12.9-16.9) g/dL Hct 45.9 (37.5-50.1) % Plt Count 192 (140-400) K/mcL Neutrophils # 4.5 (1.6-8.9) K/mcL BMP 07/07/19 11:21 Sodium 135 L Potassium 4.3 Chloride 99 Carbon Dioxide 26 BUN 13 Creatinine 0.61 L Glucose 350 H Calcium 9.4 Cardiac Enzymes 07/07/19 Range/Units 11:21 Troponin I < 0.03 (< 0.04) ng/mL Urine 07/07/19 Range/Units 12:12 Urine Color Yellow (Yellow) Urine Clarity Clear (Clear) Urine pH 6.0 (5.0-8.0) pH Units Ur Specific [place] > 1.030 H (1.010-1.025) Urine Protein Negative (Neg-Trace) mg/dL Urine Glucose (UA) >=1000 H (Normal) mg/dL - Impressions ITS Impressions Chest X-Ray 07/07/19 11:51 IMPRESSION: 1. No active pulmonary disease. 2. Stable cardiomegaly without overt failure. D/ / Tao Arvizu MD / Tao Arvizu MD Interpreting Provider: Tao Arvizu MD Head CT 07/07/19 11:52 IMPRESSION: 1. No acute intracranial abnormality. 2. No evidence of an acute facial bone fracture. 3. Soft tissue swelling along the posterior right scalp. D/ / 07/07/2019 13:01:32 Ethan Cunningham MD / jyoti Interpreting Provider: Ethan Cunningham MD Face CT 07/07/19 11:56 IMPRESSION: 1. No acute intracranial abnormality. 2. No evidence of an acute facial bone fracture. 3. Soft tissue swelling along the posterior right scalp. D/ / 07/07/2019 13:01:32 Ethan Cunningham MD / jyoti Interpreting Provider: Ethan Cunningham MD - Assessment and Plan (1) Chest pain Current Visit: Yes Status: Acute Assessment and plan: Mr. Wood presented with acute chest pain and syncope w/o prodrome. He is currently stable. Pt has history of 5 vessel CABG, CAD, DM, angina. Following with cardiology. EKG revealed no acute ischemic changes, initial troponin wnl. However, based on cardiac history and lack of prodrome prior to syncope pt was admitted to the hospitalist service for further evaluation. Echocardiogram performed on 06/11/19 revealed EF 50-55% w/atypical septal motion consistent with BBB. - Cardiology consulted and agreed to evaluate patient. Appreciate their assistance. - Continuous cardiac monitoring. - Tylenol PRN for pain. - Vitals Q4H. - Continue long acting isosorbide mononitrate 30 mg PO daily. - ASA, metoprolol. - Repeat echo. Qualifiers: Chest pain type: unspecified Qualified Code(s): R07.9 - Chest pain, unspecified (2) Syncope Current Visit: Yes Status: Acute Assessment and plan: Pt had single episode of syncope this morning w/o prodrome. This is his first syncopal episode. This is concerning for possible dysarrythmia. Pt admitted for further evaluation. - Cardiology consulted, appreciate their assistance. - Continuous cardiac monitoring. - Echocardiogram. - Qualifiers: Syncope type: unspecified Qualified Code(s): R55 - Syncope and collapse (3) Angina pectoris Current Visit: No Status: Chronic Assessment and plan: Pt reports history of angina. Follows with [facility]. Taking long acting isosorbide mononitrate. Had 1 episode of chest pain last night that resolved with aspirin. Chest pain returned this AM and pt reported syncopal episode. Pt to be evaluated further. - Cardio consulted. - Continue 81 mg ASA daily. - Continue 30 mg isosorbide mononitrate PO daily. - Continuous cardiac monitoring. (4) CAD (coronary artery disease) Current Visit: No Status: Chronic Assessment and plan: Pt has history of significant CAD w/5 vessel CABG in 2017. Currently having left sided chest pain w/o radiation. Negative troponin. - Continue ASA, metoprolol. - Atorvastatin 80 mg - Long acting nitrate. Qualifiers: Coronary Disease-Associated Artery/Lesion type: bypass graft [place] vs. transplanted heart: [place] heart Associated angina: with unspecified angina Qualified Code(s): I25.709 - Atherosclerosis of coronary artery bypass graft(s), unspecified, with unspecified angina pectoris (5) Diabetes mellitus type 2 in obese Current Visit: No Status: Chronic Assessment and plan: Mr. Wood is not currently on medical management for T2DM. Pt given 10U SQ of humulin in the ED for glucose of 350. - Start Humalog sliding scale. - Accuchecks ACHS. - Cardiac and diabetic diet. - Continue home losartan. - NPO at midnight in preparation for possible LHC. (6) Hyperlipidemia Current Visit: No Status: Chronic Assessment and plan: History of HLD treated with 80mg atorvastatin which we will continue. Qualifiers: Hyperlipidemia type: unspecified Qualified Code(s): E78.5 - Hyperlipidemia, unspecified (7) Hypertension Current Visit: No Status: Chronic Assessment and plan: Pt reports chronic borderline hypertension. Initial BP was 156/92, currently 147/91. - Continue home losartan 25 mg PO daily. - Continue lopressor 50 mg PO BID. - Continuous cardiac monitoring at this time. Qualifiers: Hypertension type: essential hypertension Qualified Code(s): I10 - Essential (primary) hypertension (8) GERD (gastroesophageal reflux disease) Current Visit: Yes Status: Chronic Assessment and plan: Pt reports chronic GERD that worsens w/o medication. This can cause him significant chest discomfort and nausea. We will continue his home ranitidine 150 mg PO daily. Qualifiers: Esophagitis presence: without esophagitis Qualified Code(s): K21.9 - Gastro-esophageal reflux disease without esophagitis - Time Spent With Patient Total time spent is greater than 50% in coordination of care (as documented) at patient's floor/unit and/or counseling patient: <SammyDeon A - Last Filed: 07/07/19 18:35> Date of Encounter: 07/07/19 Internal Medicine - H&P: HPI History of present illness: Mr. Wood is a 49 year old male All Systems PM: A 10-system review of systems was performed and is negative for pertinent findings except as documented above in the HPI. - Constitutional Vitals: Temp Pulse Resp BP Pulse Ox 98.2 F 68 15 156/91 97 07/07/19 17:50 07/07/19 17:50 07/07/19 17:50 07/07/19 17:50 07/07/19 17:50 Internal Med - H&P Results - Labs CBC & Chem 7: 07/07/19 11:21 07/07/19 11:21 Labs: Short CBC 07/07/19 Range/Units 11:21 WBC 7.5 (4.3-11.1) K/mcL Hgb 15.6 (12.9-16.9) g/dL Hct 45.9 (37.5-50.1) % Plt Count 192 (140-400) K/mcL Neutrophils # 4.5 (1.6-8.9) K/mcL BMP 07/07/19 11:21 Sodium 135 L Potassium 4.3 Chloride 99 Carbon Dioxide 26 BUN 13 Creatinine 0.61 L Glucose 350 H Calcium 9.4 Cardiac Enzymes 07/07/19 07/07/19 Range/Units 11:21 17:24 Troponin I < 0.03 < 0.03 (< 0.04) ng/mL Urine 07/07/19 Range/Units 12:12 Urine Color Yellow (Yellow) Urine Clarity Clear (Clear) Urine pH 6.0 (5.0-8.0) pH Units Ur Specific [place] > 1.030 H (1.010-1.025) Urine Protein Negative (Neg-Trace) mg/dL Urine Glucose (UA) >=1000 H (Normal) mg/dL - Impressions ITS Impressions Chest X-Ray 07/07/19 11:51 IMPRESSION: 1. No active pulmonary disease. 2. Stable cardiomegaly without overt failure. D/ / Tao Arvizu MD / Tao Arvizu MD Interpreting Provider: Tao Arvizu MD Head CT 07/07/19 11:52 IMPRESSION: 1. No acute intracranial abnormality. 2. No evidence of an acute facial bone fracture. 3. Soft tissue swelling along the posterior right scalp. D/ / 07/07/2019 13:01:32 Ethan Cunningham MD / jyoti Interpreting Provider: Ethan Cunningham MD Face CT 07/07/19 11:56 IMPRESSION: 1. No acute intracranial abnormality. 2. No evidence of an acute facial bone fracture. 3. Soft tissue swelling along the posterior right scalp. D/ / 07/07/2019 13:01:32 Ethan Cunningham MD / jyoti Interpreting Provider: Ethan Cunningahm MD - Assessment and Plan (1) Chest pain Current Visit: Yes Status: Suspected Qualifiers: Chest pain type: chest pain due to myocardial ischemia Ischemic chest pain type: other angina pectoris type Qualified Code(s): I20.8 - Other forms of angina pectoris (2) Syncope Current Visit: Yes Status: Acute Qualifiers: Syncope type: unspecified Qualified Code(s): R55 - Syncope and collapse (3) Diabetes mellitus Current Visit: No Status: Acute Qualifiers: Diabetes mellitus type: type 2 Diabetes mellitus [facility] insulin use: without [facility] use Diabetes mellitus complication status: with circulatory complication Diabetes mellitus complication detail: with other circulatory complications Qualified Code(s): E11.59 - Type 2 diabetes mellitus with other circulatory complications (4) Hypertension Current Visit: No Status: Chronic Qualifiers: Hypertension type: essential hypertension Qualified Code(s): I10 - Essential (primary) hypertension - Time Spent With Patient Total time spent is greater than 50% in coordination of care (as documented) at patient's floor/unit and/or counseling patient: - Attending Attestation I examined this patient and my medical decision-making was reviewed with the Resident Physician on 07/07/19. I agree with the documented findings, disposition and treatment plan as described except to the extent set forth below. Mr Wood is 49 y/o male with hx of CAD and DM presented to ED with syncopal episode. He had no prodrome prior to event today. Has had some chest pain last night and this AM. No fever or chills. Recent admit early June for chest pain. Exam: Alert. Comfortable. NC . Mucus membranes dry. Neck supple. Heart reg and no murmur. Lungs clear. Abd soft. No edema. Moves all extremities. No rash I/P 1. Syncope - concern for cardiac arrhthymia due to mechanism. Card eval. Echo. NPO midnight 2. CAD s/p CABG 3. DM Further diagnoses and plan as above.
[2019-07-07] MEDS ORDERED: Perflutren Lipid Microsphere 1.3 ML in 0.9 % Sodium Chloride 8.7 ML IVP ONE (18:03)
[2019-07-07] MEDS: Insulin LISPRO 300 UNITS/3 ML VIAL SQ SCH (22:15)
[2019-07-07] MEDS: Famotidine 20 MG TABLET PO SCH (22:18)
[2019-07-08 05:28] LABS: Basophils % 0.3 %; Eosinophils # 0.1 K/mcL (0.0-0.6); Eosinophils % 1.5 %; Hematocrit 44.2 % (37.5-50.1); Hemoglobin 15.1 g/dL (12.9-16.9); Immature Granulocytes % 0.4 % (0-4); Lymphocytes # 2.8 K/mcL (0.6-4.6); Lymphocytes % 36.7 %; Mean Corpuscular HGB Conc 34.2 g/dL (31.6-35.5); Mean Corpuscular Hemoglobin 29.5 pg (28.0-33.3); Mean Corpuscular Volume 86.3 fL (83.0-100.0); Monocytes # 0.5 K/mcL (0.0-1.3); Monocytes % 6.6 %; Neutrophils # 4.1 K/mcL (1.6-8.9); Platelet Count 168 K/mcL (140-400); Red Blood Count 5.12 M/mcL (4.19-5.50); Red Cell Distribution Width 12.7 % (11.5-14.5); Segmented Neutrophils % 54.5 %; White Blood Count 7.6 K/mcL (4.3-11.1)
[2019-07-08 05:48] LABS: BUN/Creatinine Ratio 26 (6-26); Blood Urea Nitrogen 15 mg/dL (6-20); Calcium 8.7 mg/dL (8.6-10.3); Carbon Dioxide 24 mEq/L (23-29); Chloride 100 mEq/L (98-107); Chol/HDL Ratio 4.6 (0-4.9); Cholesterol 169 mg/dL (< 200); Glucose 247 mg/dL (70-105); HDL Cholesterol 37 mg/dL (40-59); LDL Cholesterol,Calculated 95 mg/dL (0-99); Magnesium 1.8 mg/dL (1.6-2.6); Osmolality,Calculated 289 (280-300); Sodium 135 mEq/L (136-145); Triglycerides 186 mg/dL (< 150); eGFR For African Americans > 60 (> 60); eGFR For Non-African Americans > 60 (> 60)
--- NOTE | 2019-07-08 07:54 | Internal Med Progress Note ---
<Benedicto Higgins - Last Filed: 07/08/19 12:13> Hospitalist Progress Note - Encounter Date of Encounter: 07/08/19 Time of Encounter: 07:54 - Subjective Interval History: Pt reports slight improvement in chest pain. Pain rated 2/10, non-radiating. Continues to deny SOB, n/v, diaphoresis. Had one episode of lightheadedness early this AM w/o syncope. It resolved without incident. No symptoms since. Feels well. - Exam Vitals: Temp Pulse Resp BP Pulse Ox 97.6 F 59 16 124/76 95 07/08/19 07:40 07/08/19 07:40 07/08/19 07:40 07/08/19 07:40 07/08/19 07:40 Exam: GA: cooperative, A&O X 3, no acute distress Head: atraumatic, mild tenderness of the right cheek to palpation. Eyes: EOMI, normal appearance, conjuntiva pink. normal accommodation, PERRL ENT: mucous membranes moist Neck: no lymphadenopathy, tenderness Resp: chest wall tenderness (mild anterior left sided tenderness still present), CTAB. No rales, rhonchi, wheezes CV: RRR, +S1, +S2. No murmur, rub, gallop GI: normal bowel sounds, soft. No distention, guarding, tenderness Ext: full ROM, warm, radial pulses palpable and symmetrical. No cyanosis, edema. Neuro: CN II-XII intact, no focal deficit. - Assessment and Plan (1) Chest pain Current Visit: Yes Status: Suspected Assessment and Plan: Currently stable. Following with cardiology, awaiting recommendations. EF 50- 55%, echo unchanged from previous exam on 06/11/19. Troponin today WNL. Will complete [facility] paperwork for patient today. - Cardiology consulted, awaiting recs. Appreciate their assistance. - Continuous cardiac monitoring. - Tylenol PRN for pain. - Continue long acting nitrate. - ASA, metoprolol. (2) Syncope Current Visit: Yes Status: Acute Assessment and Plan: Syncopal episode w/o prodrome. Concerning for possible underlying dysarrythmia. - Continous cardiac monitoring. - Echo unchanged from previous exam. Awaiting cardio recs. (3) Angina pectoris Current Visit: No Status: Chronic Assessment and Plan: Continues to report mild 2/10 non-radiating cp at the left anterior chest wall. Slightly improved from admission. Denies n/v, sob, diaphoresis. - Continue tylenol PRN. - 81 mg ASA daily. - Long acting nitrate. - Tele. (4) CAD (coronary artery disease) Current Visit: No Status: Chronic Assessment and Plan: Continue asa, atorvastatin. (5) Diabetes mellitus type 2 in obese Current Visit: No Status: Chronic Assessment and Plan: Not being managed medically op. BS down from 350 to 247 today. - Continue Humalog sliding scale. - Accuchecks ACHS. - NPO at this time, monitor for hypoglycemia. - Continue home losartan. (6) Hyperlipidemia Current Visit: No Status: Chronic Assessment and Plan: Continue home atorvastatin. (7) Hypertension Current Visit: No Status: Chronic Assessment and Plan: BP currently stable. Asymptomatic. 124/76. - Continue home losartan and lopressor. - Continuous cardiac monitoring. (8) GERD (gastroesophageal reflux disease) Current Visit: Yes Status: Chronic Assessment and Plan: Pt had relief with GI cocktail in ED. Reports significant nausea when his GERD is uncontrolled. - Famotadine 20 mg. - Protonix if GERD moderate-severe. - Time Spent with Patient Total time spent is greater than 50% in coordination of care (as documented) at patient's floor/unit and/or counseling patient: Plan of Care Discussed with: patient Internal Medicine: Result - Labs CBC & Chem 7: 07/08/19 05:12 07/08/19 05:12 Labs: Short CBC 07/07/19 07/08/19 Range/Units 11:21 05:12 WBC 7.5 7.6 (4.3-11.1) K/mcL Hgb 15.6 15.1 (12.9-16.9) g/dL Hct 45.9 44.2 (37.5-50.1) % Plt Count 192 168 (140-400) K/mcL Neutrophils # 4.5 4.1 (1.6-8.9) K/mcL BMP 07/07/19 07/08/19 11:21 05:12 Sodium 135 L 135 L Potassium 4.3 4.0 Chloride 99 100 Carbon Dioxide 26 24 BUN 13 15 Creatinine 0.61 L 0.58 L Glucose 350 H 247 H Calcium 9.4 8.7 Cardiac Enzymes 08/07/07/19 07/07/19 Range/Units 11:21 17:24 22:37 Troponin I < 0.03 < 0.03 < 0.03 (< 0.04) ng/mL 07/08/19 Range/Units 05:12 Troponin I < 0.03 (< 0.04) ng/mL Urine 07/07/19 Range/Units 12:12 Urine Color Yellow (Yellow) Urine Clarity Clear (Clear) Urine pH 6.0 (5.0-8.0) pH Units Ur Specific [place] > 1.030 H (1.010-1.025) Urine Protein Negative (Neg-Trace) mg/dL Urine Glucose (UA) >=1000 H (Normal) mg/dL - ABG Interpretation ABG results: PT/INR, D-dimer PT 11.5 Seconds (9.4-12.1) 07/07/19 11:21 - Impressions Impressions Chest X-Ray 07/07/19 11:51 IMPRESSION: 1. No active pulmonary disease. 2. Stable cardiomegaly without overt failure. D/ / Tao Arvizu MD / Tao Arvizu MD Interpreting Provider: Tao Arvizu MD Head CT 07/07/19 11:52 IMPRESSION: 1. No acute intracranial abnormality. 2. No evidence of an acute facial bone fracture. 3. Soft tissue swelling along the posterior right scalp. D/ / 07/07/2019 13:01:32 Ethan Cunningham MD / jyoti Interpreting Provider: Ethan Cunningham MD Face CT 07/07/19 11:56 IMPRESSION: 1. No acute intracranial abnormality. 2. No evidence of an acute facial bone fracture. 3. Soft tissue swelling along the posterior right scalp. D/ / 07/07/2019 13:01:32 Ethan Cunningham MD / jyoti Interpreting Provider: Ethan Cunningham MD Echocardiogram Limited Views 07/07/19 17:01 Impressions: LVEF 50-55%. Normal LV chamber size, wall thickness and function. Atypical septal motion consistent with post-operative status. Left Ventricular Wall Motion: Rest Echo Findings All wall segments showed normal motion. Findings: Study Quality * Technically sub-optimal due to body habitus. ECG Findings * Sinus rhythm with BBB. Left Ventricle * LVEF 50-55%. * Normal LV chamber size, wall thickness and function. * Atypical septal motion consistent with post-operative status. Aorta * Normally sized aortic root. Pericardium * The pericardium appears normal. Consult Discharge Plan - Plan Referrals: NONE,PCP [Primary Care Provider] - <Deon Christianson - Last Filed: 07/08/19 17:33> Hospitalist Progress Note - Encounter Date of Encounter: 07/08/19 - Exam Vitals: Temp Pulse Resp BP Pulse Ox 98.2 F 95 16 122/77 95 07/08/19 15:56 07/08/19 15:56 07/08/19 15:56 07/08/19 15:56 07/08/19 15:56 - Assessment and Plan (1) Chest pain Current Visit: Yes Status: Suspected (2) Syncope Current Visit: Yes Status: Acute (3) Diabetes mellitus Current Visit: No Status: Acute (4) Hypertension Current Visit: No Status: Chronic - Time Spent with Patient Total time spent is greater than 50% in coordination of care (as documented) at patient's floor/unit and/or counseling patient: Internal Medicine: Result - Labs CBC & Chem 7: 07/08/19 05:12 07/08/19 05:12 Labs: Short CBC 07/08/19 Range/Units 05:12 WBC 7.6 (4.3-11.1) K/mcL Hgb 15.1 (12.9-16.9) g/dL Hct 44.2 (37.5-50.1) % Plt Count 168 (140-400) K/mcL Neutrophils # 4.1 (1.6-8.9) K/mcL BMP 07/08/19 05:12 Sodium 135 L Potassium 4.0 Chloride 100 Carbon Dioxide 24 BUN 15 Creatinine 0.58 L Glucose 247 H Calcium 8.7 Cardiac Enzymes 07/07/19 07/07/19 07/08/19 Range/Units 17:24 22:37 05:12 Troponin I < 0.03 < 0.03 < 0.03 (< 0.04) ng/mL - ABG Interpretation ABG results: PT/INR, D-dimer PT 11.5 Seconds (9.4-12.1) 07/07/19 11:21 - Impressions Impressions Echocardiogram Limited Views 07/07/19 17:01 Impressions: LVEF 50-55%. Normal LV chamber size, wall thickness and function. Atypical septal motion consistent with post-operative status. Left Ventricular Wall Motion: Rest Echo Findings All wall segments showed normal motion. Findings: Study Quality * Technically sub-optimal due to body habitus. ECG Findings * Sinus rhythm with BBB. Left Ventricle * LVEF 50-55%. * Normal LV chamber size, wall thickness and function. * Atypical septal motion consistent with post-operative status. Aorta * Normally sized aortic root. Pericardium * The pericardium appears normal. - Attending Attestation I examined this patient and my medical decision-making was reviewed with the Resident Physician on 07/08/19. I agree with the documented findings, disposition and treatment plan as described except to the extent set forth below. Mr Wood is currently in observation for chest pain and syncope. He remains moderate to high risk. Mr Wood is resting now. Had some lightheadedness today. No other issues. Exam Alert. Comfortable Mucsu membranes dry Not tachycardic No wheeze Plan Further cardiology evaluation. <Benedicto Higgins - Last Filed: 07/08/19 12:13> (1) Chest pain Qualifiers: Chest pain type: chest pain due to myocardial ischemia Ischemic chest pain type: other angina pectoris type Qualified Code(s): I20.8 - Other forms of angina pectoris (2) Syncope Qualifiers: Syncope type: unspecified Qualified Code(s): R55 - Syncope and collapse (4) CAD (coronary artery disease) Qualifiers: Coronary Disease-Associated Artery/Lesion type: bypass graft [place] vs. transplanted heart: [place] heart Associated angina: with unspecified angina Qualified Code(s): I25.709 - Atherosclerosis of coronary artery bypass graft(s), unspecified, with unspecified angina pectoris (6) Hyperlipidemia Qualifiers: Hyperlipidemia type: unspecified Qualified Code(s): E78.5 - Hyperlipidemia, unspecified (7) Hypertension Qualifiers: Hypertension type: essential hypertension Qualified Code(s): I10 - Essential (primary) hypertension (8) GERD (gastroesophageal reflux disease) Qualifiers: Esophagitis presence: without esophagitis Qualified Code(s): K21.9 - Gastro- esophageal reflux disease without esophagitis <Deon Christianson - Last Filed: 07/08/19 17:33> (1) Chest pain Qualifiers: Chest pain type: chest pain due to myocardial ischemia Ischemic chest pain type: other angina pectoris type Qualified Code(s): I20.8 - Other forms of angina pectoris (2) Syncope Qualifiers: Syncope type: unspecified Qualified Code(s): R55 - Syncope and collapse (3) Diabetes mellitus Qualifiers: Diabetes mellitus type: type 2 Diabetes mellitus salvage determiner insulin use: without salvage determiner use Diabetes mellitus complication status: with circulatory complication Diabetes mellitus complication detail: with other circulatory complications Qualified Code(s): E11.59 - Type 2 diabetes mellitus with other circulatory complications (4) Hypertension Qualifiers: Hypertension type: essential hypertension Qualified Code(s): I10 - Essential (primary) hypertension
[2019-07-08] MEDS: Aspirin Enteric Coated 81 MG Tablet PO SCH (09:34)
[2019-07-08] MEDS: Insulin LISPRO 300 UNITS/3 ML VIAL SQ SCH ×4 (11:40→20:24)
[2019-07-08] MEDS: Isosorbide MONOnitrate (24 HR) 30 MG TAB.ER.24H PO SCH (13:22)
--- NOTE | 2019-07-08 13:37 | Cardiology Consult Note ---
Date of Encounter: 07/08/19 Time of Encounter: 13:35 Assessment and Plan (1) Chest pain Current Visit: No Status: Resolved Chest discomfort, syncope unclear etiology. LVEF preserved. Serial troponin measurements negative. Recommend continue aspirin, statin, Imdur, and beta jessica therapy. Recommend ischemic evluation to further evaluate symtpoms. Further recommendations to follow. Qualifiers: Chest pain type: other chest pain Qualified Code(s): R07.89 - Other chest pain; R07.8 - Other chest pain (2) CAD (coronary artery disease) Current Visit: No Status: Chronic CAD s/p CABG. See recommendations under chest discomfort. Qualifiers: Coronary Disease-Associated Artery/Lesion type: bypass graft [place] vs. transplanted heart: [place] heart Associated angina: with unspecified angina Qualified Code(s): I25.709 - Atherosclerosis of coronary artery bypass graft(s), unspecified, with unspecified angina pectoris (3) Syncope Current Visit: Yes Status: Acute Unclear etiology. Continue telemetry. Blood pressure presently well controlled. Check orthostatic vital signs. LVE normal per TTE. Qualifiers: Syncope type: unspecified Qualified Code(s): R55 - Syncope and collapse Discussion w patient/family: The assessment and plan as outlined above was discussed with the patient and/or family members who expressed understanding and agreement. All questions were answered. Thank you for involving us in the care of your patient. Please call with any questions. History of Present Illness Consult date: 07/08/19 Requesting physician: Benedicto Higgins Consult reason: Chest pain, syncope Chief complaint: Chest pain, syncope History of present illness: Mr. Wood is a 49 year old male with a history of CAD, prior CABG in 2017. Ports 2 episodes of chest discomfort last month. Most recent episode occurred on night. Describes a substernal pressure sensation without radiation, nausea, vomiting. On Wednesday, he was walking out of a restaurant when he suddenly passed out. Reports he hit his head up against the car. Since admission, denies any further episodes of lightheadedness, near-syncope, or syncope. No further chest pain reported. He has not had an ischemic evaluation since bypass performed. TTE reviewed and demonstrates an LVEF of 50-55%. Unchanged from previous. Past Med Surg Social Fam HX - Past Medical History Medical history: coronary artery disease, diabetes, GERD, hyperlipidemia, hypertension, myocardial infarction Psychiatric history: no psych history - Past Surgical History Surgical History: coronary bypass (CABG) Additional surgical history: Right Wrist. CABG x5 - Social History Smoking Status: Never smoker Smokeless Tobacco Status: No Alcohol use: none Drug use: none - Family History Mother Adopted: No Family Member Ethnicity: Non- Living Status: Still Living Hx Family Cardiac Disorders: No Hx Family Respiratory Disorders: No Hx Family Cancer: No Hx Family GI Disorders: Yes (slow GI bleed) Hx Family Endocrine Disorder: No Hx Family Neuromuscular Disorders: No Hx Family Neurologic Disorders: No Hx Family HEENT Disorders: No Hx Family Autoimmune Disorders: No Medications and Allergies RX: Aspirin [Lo-Dose Aspirin EC] 81 mg PO DAILY 10/07/17 [History] RX: Atorvastatin [Lipitor] 80 mg PO HS 10/07/17 [History] RX: Metoprolol [Lopressor] 50 mg PO BID 10/07/17 [History] RX: Ranitidine HCl [Heartburn Relief] 150 mg PO HS 01/29/18 [History] RX: Isosorbide MONOnitrate (24 HR) [Imdur] 30 mg PO DAILY 06/11/19 [History] RX: Losartan Potassium 25 mg PO DAILY 06/11/19 [History] Allergy/AdvReac Type Severity Reaction Status Date / Time Cyclobenzaprine Allergy Hallucinati Verified 06/10/19 22:21 [From Flexeril] ng Penicillins Allergy See Verified 06/10/19 22:21 Comments wellbutrin AdvReac Insomnia Uncoded 06/10/19 22:21 All Systems Review: The remainder of the systems were reviewed and are negative - Cardiovascular Cardiovascular: as per HPI, chest pain at rest, chest pain with exertion, syncope Physical Examination Vital Signs, Last 4 Hours Temp Pulse Resp BP Pulse Ox 07/08/19 12:02 98.1 F 65 16 134/84 96 General: Conversant, No Apparent Distress HEENT: Atraumatic, Normocephaly, Mucus Membranes Moist Neck: No JVD, Normal carotid pulses Cardiac: Reg Rate and Rhythm, Normal S1 and S2, No Murmur Lungs: Normal Breath Sounds, No Wheeze, Rales, Rhonchi Neuro: Alert and responsive, No focal deficits noted Abdomen: Soft, Non-Tender, Other (Obese) Skin: No rashes noted on visualized skin Musculoskeletal: No Chest Wall Tenderness Extremities: No Clubbing, No Cyanosis, No Edema Results 07/08/19 05:12 07/08/19 05:12 Lab Results 07/07/19 07/07/19 07/07/19 11:21 17:24 22:37 WBC Hgb Hct Plt Count Sodium 135 L Potassium 4.3 Chloride 99 Carbon Dioxide 26 BUN 13 Creatinine 0.61 L Glucose 350 H Calcium 9.4 Magnesium 1.8 Troponin I < 0.03 < 0.03 < 0.03 07/08/19 07/08/19 07/08/19 05:12 05:12 05:12 WBC 7.6 Hgb 15.1 Hct 44.2 Plt Count 168 Sodium 135 L Potassium 4.0 Chloride 100 Carbon Dioxide 24 BUN 15 Creatinine 0.58 L Glucose 247 H Calcium 8.7 Magnesium 1.8 Troponin I < 0.03 - Imaging and Cardiology Stress Test: report reviewed (2016) Echo: report reviewed Cardiac cath: report reviewed Consult Discharge Plan - Plan Referrals: NONE,PCP [Primary Care Provider] -
[2019-07-08] MEDS: Famotidine 20 MG TABLET PO SCH (20:23)
[2019-07-08] MEDS ORDERED: GI Cocktail 40 ML EACH PO ONE (20:38)
--- NOTE | 2019-07-09 00:28 | Electrocardiograph Report ---
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
[2019-07-09] MEDS ORDERED: Regadenoson 0.4 MG/5 ML SYRINGE IVP ONE (06:59)
--- NOTE | 2019-07-09 07:52 | Internal Med Progress Note ---
<Benedicto Higgins - Last Filed: 07/09/19 09:29> Hospitalist Progress Note - Encounter Date of Encounter: 07/09/19 Time of Encounter: 07:52 - Subjective Interval History: Pt awake, alert. Comfortable in bed. Reports new onset headache since completing his first stress test. Mike new syncope but continues to have some lightheaded ness while standing when urinating, unchanged from yesterday. CP is unchanged, 12/18. - Exam Vitals: Temp Pulse Resp BP Pulse Ox 97.8 F 61 14 113/73 97 07/09/19 07:03 07/09/19 07:03 07/09/19 07:03 07/09/19 07:03 07/09/19 07:03 Exam: GA: cooperative, A&O X 3, no acute distress Head: atraumatic, normocephalic. Eyes: EOMI, normal appearance, conjuntiva pink ENT: mucous membranes moist Neck: no lymphadenopathy, tenderness Resp: chest wall tenderness improved, CTAB. No rales, rhonchi, wheezes CV: RRR, +S1, +S2. No murmur, rub, gallop GI: normal bowel sounds, soft. No distention, guarding, tenderness Ext: full ROM, warm, radial pulses palpable and symmetrical. No cyanosis, edema. Neuro: CN II-XII intact, no focal deficit. - Assessment and Plan (1) Chest pain Current Visit: Yes Status: Suspected Assessment and Plan: Currently stable. EF 50-55%, echo unchanged from previous exam on 06/11/19. Troponin WNL. Will complete [facility] paperwork for patient today. Stress test done today. Plan for 2 day stress testing. - 2 day stress test per cards. - Continuous cardiac monitoring. - Tylenol PRN for pain. - Continue long acting nitrate. - ASA, metoprolol. (2) Syncope Current Visit: Yes Status: Acute Assessment and Plan: Syncopal episode w/o prodrome. Concerning for possible underlying dysarrythmia. Pt reporting new onset headache and sinus pressure following stress test today. Due to his syncope and facial injury we will order CT sinus today. - Continous cardiac monitoring. - 2 day stress test per cards. (3) Angina pectoris Current Visit: No Status: Chronic Assessment and Plan: Pain is unchanged today. Denies n/v, sob, diaphoresis. - Continue tylenol PRN. - 81 mg ASA daily. - Long acting nitrate. - Tele. (4) CAD (coronary artery disease) Current Visit: No Status: Chronic Assessment and Plan: Continue asa, atorvastatin. (5) Diabetes mellitus type 2 in obese Current Visit: No Status: Chronic Assessment and Plan: Not being managed medically op. - Continue Humalog sliding scale. - Accuchecks ACHS. - Continue cardiac diet, monitor for hypoglycemia. - Continue home losartan. (6) Hypertension Current Visit: No Status: Chronic Assessment and Plan: BP currently stable. Asymptomatic. 113/73 this morning. - Continue home losartan and lopressor. - Continuous cardiac monitoring. (7) GERD (gastroesophageal reflux disease) Current Visit: Yes Status: Chronic Assessment and Plan: Asymptomatic at this time. Reports significant nausea when his GERD is uncontrolled. - Famotadine 20 mg. - Protonix if GERD moderate-severe. - Time Spent with Patient Total time spent is greater than 50% in coordination of care (as documented) at patient's floor/unit and/or counseling patient: Plan of Care Discussed with: patient Internal Medicine: Result - Labs CBC & Chem 7: 07/08/19 05:12 07/08/19 05:12 - ABG Interpretation ABG results: PT/INR, D-dimer PT 11.5 Seconds (9.4-12.1) 07/07/19 11:21 Consult Discharge Plan - Plan Referrals: NONE,PCP [Primary Care Provider] - <Deon Christianson - Last Filed: 07/09/19 15:53> Hospitalist Progress Note - Encounter Date of Encounter: 07/09/19 - Exam Vitals: Temp Pulse Resp BP Pulse Ox 98.2 F 81 16 130/87 95 07/09/19 15:15 07/09/19 15:15 07/09/19 15:15 07/09/19 15:15 07/09/19 15:15 - Assessment and Plan (1) Chest pain Current Visit: Yes Status: Suspected (2) Syncope Current Visit: Yes Status: Acute (3) Diabetes mellitus Current Visit: No Status: Acute (4) Hypertension Current Visit: No Status: Chronic - Time Spent with Patient Total time spent is greater than 50% in coordination of care (as documented) at patient's floor/unit and/or counseling patient: Internal Medicine: Result - Labs CBC & Chem 7: 07/09/19 10:27 07/09/19 10:27 Labs: Short CBC 07/09/19 Range/Units 10:27 WBC 6.9 (4.3-11.1) K/mcL Hgb 16.1 (12.9-16.9) g/dL Hct 47.1 (37.5-50.1) % Plt Count 175 (140-400) K/mcL Neutrophils # 4.4 (1.6-8.9) K/mcL BMP 07/09/19 10:27 Sodium 134 L Potassium 4.4 Chloride 100 Carbon Dioxide 25 BUN 15 Creatinine 0.73 Glucose 330 H Calcium 9.1 - ABG Interpretation ABG results: PT/INR, D-dimer PT 11.5 Seconds (9.4-12.1) 07/07/19 11:21 - Attending Attestation I examined this patient and my medical decision-making was reviewed with the Resident Physician on 07/09/19. I agree with the documented findings, disposition and treatment plan as described except to the extent set forth below. Mr Wood is currenly hospitalized for chest pain. He remains moderate to high risk due to potential for worsening cardiac issues. Mr Wood is feeling OK. No fever or chills. Still with mild chest pain. Also feels dizzy when standing to urinate. No GI issues. Exam Alert. Comfortable. Mucus membranes dry. NC. EOMI. Heart reg and not tachy. No wheeze. Plan: Complete stress test. Check CT sinuses. <Benedicto Higgins - Last Filed: 07/09/19 09:29> (1) Chest pain Qualifiers: Chest pain type: chest pain due to myocardial ischemia Ischemic chest pain type: other angina pectoris type Qualified Code(s): I20.8 - Other forms of angina pectoris (2) Syncope Qualifiers: Syncope type: unspecified Qualified Code(s): R55 - Syncope and collapse (4) CAD (coronary artery disease) Qualifiers: Coronary Disease-Associated Artery/Lesion type: bypass graft [place] vs. transplanted heart: [place] heart Associated angina: with unspecified angina Qualified Code(s): I25.709 - Atherosclerosis of coronary artery bypass graft(s), unspecified, with unspecified angina pectoris (6) Hypertension Qualifiers: Hypertension type: essential hypertension Qualified Code(s): I10 - Essential (primary) hypertension (7) GERD (gastroesophageal reflux disease) Qualifiers: Esophagitis presence: without esophagitis Qualified Code(s): K21.9 - Gastro-esophageal reflux disease without esophagitis <Deon Christianson - Last Filed: 07/09/19 15:53> (1) Chest pain Qualifiers: Chest pain type: chest pain due to myocardial ischemia Ischemic chest pain type: other angina pectoris type Qualified Code(s): I20.8 - Other forms of angina pectoris (2) Syncope Qualifiers: Syncope type: unspecified Qualified Code(s): R55 - Syncope and collapse (3) Diabetes mellitus Qualifiers: Diabetes mellitus type: type 2 Diabetes mellitus exterminator helper insulin use: without skilled nursing use Diabetes mellitus complication status: with circulatory complication Diabetes mellitus complication detail: with other circulatory co mplications Qualified Code(s): E11.59 - Type 2 diabetes mellitus with other circulatory complications (4) Hypertension Qualifiers: Hypertension type: essential hypertension Qualified Code(s): I10 - Essential (primary) hypertension
--- NOTE | 2019-07-09 08:16 | Event Note ---
Date of Encounter: 07/09/19 Time of Encounter: 07:45 - Cardiology Event Note Plan for ischemic evaluation for stress test. Patient was seen in stress lab. Patient with initiation of stress test today (2 day study that will be completed on Wednesday). Further recommendations pending stress test.
[2019-07-09] MEDS: Aspirin Enteric Coated 81 MG Tablet PO SCH (10:02)
[2019-07-09] MEDS: Isosorbide MONOnitrate (24 HR) 30 MG TAB.ER.24H PO SCH (10:02)
[2019-07-09] MEDS: Insulin LISPRO 300 UNITS/3 ML VIAL SQ SCH ×4 (10:03→21:47)
[2019-07-09 10:56] LABS: White Blood Count 6.9 K/mcL (4.3-11.1)
[2019-07-09 10:57] LABS: Basophils % 0.6 %; Eosinophils # 0.1 K/mcL (0.0-0.6); Eosinophils % 0.9 %; Hematocrit 47.1 % (37.5-50.1); Hemoglobin 16.1 g/dL (12.9-16.9); Immature Granulocytes % 0.4 % (0-4); Lymphocytes % 28.4 %; Mean Corpuscular HGB Conc 34.2 g/dL (31.6-35.5); Mean Corpuscular Hemoglobin 29.7 pg (28.0-33.3); Mean Corpuscular Volume 86.7 fL (83.0-100.0); Mean Platelet Volume 10.9 fL (9.4-12.4); Monocytes # 0.4 K/mcL (0.0-1.3); Monocytes % 6.2 %; Neutrophils # 4.4 K/mcL (1.6-8.9); Platelet Count 175 K/mcL (140-400); Red Blood Count 5.43 M/mcL (4.19-5.50); Red Cell Distribution Width 12.5 % (11.5-14.5); Segmented Neutrophils % 63.5 %
[2019-07-09 11:08] LABS: Blood Urea Nitrogen 15 mg/dL (6-20); Calcium 9.1 mg/dL (8.6-10.3); Carbon Dioxide 25 mEq/L (23-29); Chloride 100 mEq/L (98-107); Glucose 330 mg/dL (70-105); Osmolality,Calculated 292 (280-300); Potassium 4.4 mEq/L (3.5-5.1); Sodium 134 mEq/L (136-145)
[2019-07-09 11:46] LABS: BUN/Creatinine Ratio 21 (6-26); eGFR For African Americans > 60 (> 60); eGFR For Non-African Americans > 60 (> 60)
[2019-07-09] MEDS: Famotidine 20 MG TABLET PO SCH (21:47)
[2019-07-09] MEDS: Acetaminophen 325 MG TABLET PO PRN (21:53)
[2019-07-10 04:41] LABS: Basophils % 0.3 %; Eosinophils # 0.1 K/mcL (0.0-0.6); Eosinophils % 1.4 %; Hematocrit 44.3 % (37.5-50.1); Hemoglobin 14.9 g/dL (12.9-16.9); Immature Granulocytes % 0.4 % (0-4); Lymphocytes # 3.2 K/mcL (0.6-4.6); Lymphocytes % 42.6 %; Mean Corpuscular HGB Conc 33.6 g/dL (31.6-35.5); Mean Corpuscular Hemoglobin 29.6 pg (28.0-33.3); Mean Corpuscular Volume 87.9 fL (83.0-100.0); Monocytes # 0.5 K/mcL (0.0-1.3); Monocytes % 6.2 %; Neutrophils # 3.7 K/mcL (1.6-8.9); Platelet Count 167 K/mcL (140-400); Red Blood Count 5.04 M/mcL (4.19-5.50); Red Cell Distribution Width 12.5 % (11.5-14.5); Segmented Neutrophils % 49.1 %; White Blood Count 7.6 K/mcL (4.3-11.1)
[2019-07-10 04:59] LABS: BUN/Creatinine Ratio 33 (6-26); Blood Urea Nitrogen 19 mg/dL (6-20); Calcium 9.1 mg/dL (8.6-10.3); Carbon Dioxide 23 mEq/L (23-29); Chloride 102 mEq/L (98-107); Glucose 263 mg/dL (70-105); Osmolality,Calculated 289 (280-300); Potassium 3.9 mEq/L (3.5-5.1); Sodium 134 mEq/L (136-145); eGFR For African Americans > 60 (> 60); eGFR For Non-African Americans > 60 (> 60)
--- NOTE | 2019-07-10 07:53 | Internal Med Progress Note ---
<Benedicto Higgins - Last Filed: 07/10/19 12:49> Hospitalist Progress Note - Encounter Date of Encounter: 07/10/19 Time of Encounter: 07:53 - Exam Vitals: Temp Pulse Resp BP Pulse Ox 97.7 F 57 16 124/76 91 07/10/19 03:22 07/10/19 03:22 07/10/19 03:22 07/10/19 03:22 07/10/19 03:22 Exam: GA: cooperative, A&O X 3, no acute distress Head: atraumatic, normocephalic. Eyes: EOMI, normal appearance, conjuntiva pink ENT: mucous membranes moist Neck: no lymphadenopathy, tenderness Resp: chest wall tenderness resolved, CTAB. No rales, rhonchi, wheezes CV: RRR, +S1, +S2. No murmur, rub, gallop GI: normal bowel sounds, soft. No distention, guarding, tenderness Ext: full ROM, warm, No cyanosis, edema. Neuro: CN II-XII intact, no focal deficit. - Assessment and Plan (1) Chest pain Current Visit: Yes Status: Suspected Assessment and Plan: Currently stable. Day 2 of cardiac stress test performed today and demonstrated perfusion abnormalities per cardio. EF 50-55%, echo unchanged from previous exam on 06/11/19. Troponin WNL. - Continue asa, metoprolol, imdur, statin per cards. - LHC to be performed tomorrow morning for perfusion abnormality. - NPO at midnight. - Tylenol PRN for pain. (2) Syncope Current Visit: Yes Status: Acute Assessment and Plan: Pt denies additional episodes of syncope. Still endorses occasional lightheadedness when standing. CT sinuses demonstrated chronic inflammation. Lightheadedness likely from low blood pressure from baseline. - Possible fluid bolus today. Orthostatics normal. (3) Angina pectoris Current Visit: No Status: Chronic Assessment and Plan: Pain unchanged today. Perfusion defect noted on day 2 stress test. LHC scheduled for tomorrow per cards. - Continue tylenol PRN. - 81 mg ASA daily. - Long acting nitrate. - Tele. (4) CAD (coronary artery disease) Current Visit: No Status: Chronic Assessment and Plan: ASA, statin. LHC tomorrow. (5) Diabetes mellitus type 2 in obese Current Visit: No Status: Chronic Assessment and Plan: Pts symptomatic lightheadedness could be secondary to lower than normal BS while in hospital. He was advised to follow up with new PCP for diabetic management. - Continue Humalog sliding scale. - Accuchecks ACHS. - Continue cardiac diet, monitor for hypoglycemia. - Continue home losartan. (6) Hypertension Current Visit: No Status: Chronic Assessment and Plan: Lower than baseline blood pressures could be contributing to lightheadedness symptoms. - Possible fluid bolus today. - Monitor for hypotension. - BP well controlled. (7) GERD (gastroesophageal reflux disease) Current Visit: Yes Status: Chronic Assessment and Plan: Continues to be asymptomatic. Reports significant nausea when his GERD is uncontrolled. - Famotadine 20 mg. - Protonix if GERD moderate-severe. - Time Spent with Patient Total time spent is greater than 50% in coordination of care (as documented) at patient's floor/unit and/or counseling patient: Plan of Care Discussed with: patient Internal Medicine: Result - Labs CBC & Chem 7: 07/10/19 03:39 07/10/19 03:39 Labs: Short CBC 07/09/19 07/10/19 Range/Units 10:27 03:39 WBC 6.9 7.6 (4.3-11.1) K/mcL Hgb 16.1 14.9 (12.9-16.9) g/dL Hct 47.1 44.3 (37.5-50.1) % Plt Count 175 167 (140-400) K/mcL Neutrophils # 4.4 3.7 (1.6-8.9) K/mcL BMP 07/09/19 07/10/19 10:27 03:39 Sodium 134 L 134 L Potassium 4.4 3.9 Chloride 100 102 Carbon Dioxide 25 23 BUN 15 19 Creatinine 0.73 0.58 L Glucose 330 H 263 H Calcium 9.1 9.1 - ABG Interpretation ABG results: PT/INR, D-dimer PT 11.5 Seconds (9.4-12.1) 07/07/19 11:21 - Impressions Impressions Sinuses CT 07/09/19 09:30 IMPRESSION: Nonspecific chronic inflammatory changes bilateral maxillary sinuses. Other paranasal sinuses appear unremarkable. D/ / Az Jones / Az Jones Interpreting Provider: Az Jones Consult Discharge Plan - Plan Referrals: NONE,PCP [Primary Care Provider] - <Deon Christianson - Last Filed: 07/10/19 17:18> Hospitalist Progress Note - Encounter Date of Encounter: 07/10/19 - Exam Vitals: Temp Pulse Resp BP Pulse Ox 98.3 F 67 17 128/81 95 07/10/19 16:35 07/10/19 16:35 07/10/19 16:35 07/10/19 16:35 07/10/19 16:35 - Assessment and Plan (1) Chest pain Current Visit: Yes Status: Suspected (2) Syncope Current Visit: Yes Status: Acute (3) Diabetes mellitus Current Visit: No Status: Acute (4) Hypertension Current Visit: No Status: Chronic - Time Spent with Patient Total time spent is greater than 50% in coordination of care (as documented) at patient's floor/unit and/or counseling patient: Internal Medicine: Result - Labs CBC & Chem 7: 07/10/19 03:39 07/10/19 03:39 Labs: Short CBC 07/10/19 Range/Units 03:39 WBC 7.6 (4.3-11.1) K/mcL Hgb 14.9 (12.9-16.9) g/dL Hct 44.3 (37.5-50.1) % Plt Count 167 (140-400) K/mcL Neutrophils # 3.7 (1.6-8.9) K/mcL BMP 07/10/19 03:39 Sodium 134 L Potassium 3.9 Chloride 102 Carbon Dioxide 23 BUN 19 Creatinine 0.58 L Glucose 263 H Calcium 9.1 - ABG Interpretation ABG results: PT/INR, D-dimer PT 11.5 Seconds (9.4-12.1) 07/07/19 11:21 - Impressions Impressions Sinuses CT 07/09/19 09:30 IMPRESSION: Nonspecific chronic inflammatory changes bilateral maxillary sinuses. Other paranasal sinuses appear unremarkable. D/ / Az Jones / Az Jones Interpreting Provider: Az Jones - Attending Attestation I examined this patient and my medical decision-making was reviewed with the Resident Physician on 07/10/19. I agree with the documented findings, disposition and treatment plan as described except to the extent set forth below. Mr Wood is resting at this time. Stress test is positive. To have LHC tomorrow. No other issues. Exam Alert. Comfortable. NC. Mucus membranes dry. EOMI. No tachycardia. No wheeze. Moves all extremities. No rash. Plan LHC tomorrow. <Benedicto Higgins - Last Filed: 07/10/19 12:49> (1) Chest pain Qualifiers: Chest pain type: chest pain due to myocardial ischemia Ischemic chest pain type: other angina pectoris type Qualified Code(s): I20.8 - Other forms of angina pectoris (2) Syncope Qualifiers: Syncope type: unspecified Qualified Code(s): R55 - Syncope and collapse (4) CAD (coronary artery disease) Qualifiers: Coronary Disease-Associated Artery/Lesion type: [place] artery [place] vs. transplanted heart: [place] heart Associated angina: with unspecified angina Qualified Code(s): I25.119 - Atherosclerotic heart disease of [place] coronary artery with unspecified angina pectoris (6) Hypertension Qualifiers: Hypertension type: essential hypertension Qualified Code(s): I10 - Essential (primary) hypertension (7) GERD (gastroesophageal reflux disease) Qualifiers: Esophagitis presence: without esophagitis Qualified Code(s): K21.9 - Gastro- esophageal reflux disease without esophagitis <Doen Christianson - Last Filed: 07/10/19 17:18> (1) Chest pain Qualifiers: Chest pain type: chest pain due to myocardial ischemia Ischemic chest pain type: other angina pectoris type Qualified Code(s): I20.8 - Other forms of angina pectoris (2) Syncope Qualifiers: Syncope type: unspecified Qualified Code(s): R55 - Syncope and collapse (3) Diabetes mellitus Qualifiers: Diabetes mellitus type: type 2 Diabetes mellitus longterm insulin use: without longterm use Diabetes mellitus complication status: with circulatory complication Diabetes mellitus complication detail: with other circulatory complications Qualified Code(s): E11.59 - Type 2 diabetes mellitus with other circulatory complications (4) Hypertension Qualifiers: Hypertension type: essential hypertension Qualified Code(s): I10 - Essential (primary) hypertension
[2019-07-10] MEDS: Aspirin Enteric Coated 81 MG Tablet PO SCH (08:21)
[2019-07-10] MEDS: Insulin LISPRO 300 UNITS/3 ML VIAL SQ SCH ×4 (08:21→20:46)
[2019-07-10] MEDS: Isosorbide MONOnitrate (24 HR) 30 MG TAB.ER.24H PO SCH (08:21)
--- NOTE | 2019-07-10 11:08 | Cardiology Progress Note ---
Date of Encounter: 07/10/19 Time of Encounter: 11:06 Assessment and Plan (1) Chest pain Current Visit: No Status: Resolved Per cardiology: -Chest discomfort, syncope unclear etiology. -LVEF preserved. -Serial troponin measurements negative. -Recommend continue aspirin, statin, Imdur, and beta jessica therapy. -Underwent stress test with perfusion abnormalities noted. -Discussed stress test results with patient. Recommend LHC. Risks versus benefits of LHC explained to patient, who states understanding and agreeable to proceed. -NPO after midnight, LHC in am. Qualifiers: Chest pain type: other chest pain Qualified Code(s): R07.89 - Other chest pain; R07.8 - Other chest pain (2) CAD (coronary artery disease) Current Visit: No Status: Chronic Per cardiology: -CAD s/p CABG. -See recommendations under chest discomfort. Qualifiers: Coronary Disease-Associated Artery/Lesion type: [place] artery [place] vs. transplanted heart: [place] heart Associated angina: with unspecified angina Qualified Code(s): I25.119 - Atherosclerotic heart disease of [place] coronary artery with unspecified angina pectoris (3) Syncope Current Visit: Yes Status: Acute Per cardiology: -Unclear etiology. -No events on telemetry. -Blood pressure presently well controlled. Check orthostatic vital signs. -LVE normal per TTE. Qualifiers: Syncope type: unspecified Qualified Code(s): R55 - Syncope and collapse Discussion w patient/family: The assessment and plan as outlined above was discussed with the patient who expressed understanding and agreement. All questions were answered. Thank you for involving us in the care of your patient. Please call with any questions. Discussed and reviewed with Subjective Principal diagnosis: Chest pain Interval history: Patient denies current chest pain. Objective Vital Signs, Last 4 Hours Temp Pulse Resp BP Pulse Ox 07/10/19 08:00 97.9 F 65 16 126/79 97 General: Conversant, No Apparent Distress HEENT: Atraumatic, Normocephaly, Mucus Membranes Moist Neck: No JVD, Normal carotid pulses Cardiac: Reg Rate and Rhythm, Normal S1 and S2, No Murmur Lungs: Normal Breath Sounds, No Wheeze, Rales, Rhonchi Neuro: Alert and responsive, No focal deficits noted Abdomen: Soft, Non-Tender Skin: No rashes noted on visualized skin Musculoskeletal: No Chest Wall Tenderness Extremities: No Clubbing, No Cyanosis, No Edema, Normal Pulses Results 07/10/19 03:39 07/10/19 03:39 Lab Results Impressions Sinuses CT 07/09/19 09:30 IMPRESSION: Nonspecific chronic inflammatory changes bilateral maxillary sinuses. Other paranasal sinuses appear unremarkable. D/ / Az Jones / Az Jones Interpreting Provider: Az Jones Active Medications Acetaminophen (Tylenol) 650 mg PO Q6HR PRN PRN Reason: Mild Pain/Fever Stop: 01/06/20 16:50 Last Admin: 07/09/19 21:53 Dose: 650 mg Documented by: Aspirin (Aspirin Ec) 81 mg PO DAILY [facility] Stop: 01/07/20 09:01 Last Admin: 07/10/19 08:21 Dose: 81 mg Documented by: Atorvastatin Calcium (Lipitor) 80 mg PO HS [facility] Stop: 01/06/20 21:01 Last Admin: 07/09/19 21:47 Dose: 80 mg Documented by: Dextrose/Water (Dextrose 50% (Syg)) 25 ml IVP AD PRN PRN Reason: Hypoglycemia Stop: 01/06/20 16:55 Famotidine (Pepcid) 20 mg PO [facility] Stop: 01/06/20 21:01 Last Admin: 07/09/19 21:47 Dose: 20 mg Documented by: Glucagon (Glucagen) 1 mg IM ONCE PRN PRN Reason: Hypoglycemia Stop: 01/06/20 16:55 Glucose (Gluctose) 15 gm PO ONCE PRN PRN Reason: Hypoglycemia Stop: 01/06/20 16:55 Glucose (Gluctose) 30 gm PO ONCE PRN PRN Reason: Hypoglycemia Stop: 01/06/20 16:55 Dextrose (Dextrose 5%) 1,000 mls @ 100 mls/hr IVC .Q10H PRN PRN Reason: HYPOGLYCEMIA Stop: 01/06/20 16:55 Insulin Human Lispro (Humalog) 0 units SQ HS [facility]; Protocol Stop: 01/06/20 21:01 Last Admin: 07/09/19 21:47 Dose: 2 units Documented by: Insulin Human Lispro (Humalog) 0 units SQ TIDAC [facility]; Protocol Stop: 01/07/20 07:31 Last Admin: 07/10/19 08:21 Dose: 8 units Documented by: Isosorbide Mononitrate (Imdur) 30 mg PO DAILY [facility] Stop: 01/07/20 09:01 Last Admin: 07/10/19 08:21 Dose: 30 mg Documented by: Losartan Potassium (Cozaar) 25 mg PO DAILY [facility]; Protocol Stop: 01/07/20 09:01 Last Admin: 07/10/19 08:21 Dose: 25 mg Documented by: Metoprolol Tartrate (Lopressor) 50 mg PO BID [facility] Stop: 01/06/20 21:01 Last Admin: 07/10/19 08:21 Dose: 50 mg Documented by: Naloxone HCl (Narcan) 0.4 mg IVP Q2MPRN PRN PRN Reason: SEE COMMENTS Stop: 01/06/20 16:50 Nitroglycerin (Nitroglycerin) 0.4 mg SL Q5MIN PRN PRN Reason: Chest Pain Stop: 01/06/20 12:47 Laboratory Tests 07/10/19 07/10/19 03:39 03:39 Hgb 14.9 Creatinine 0.58 L - Imaging and Cardiology Chest Xray: report reviewed Stress Test: report reviewed Echo: report reviewed Cardiac cath: report reviewed - EKG Interpretation EKG results cardiology: other (Telemetry reviewed with average HR previous 12 hours noted to be 60, SR. PVCS, PACS noted.) Consult Discharge Plan - Plan Referrals: NONE,PCP [Primary Care Provider] -
[2019-07-10] MEDS: Famotidine 20 MG TABLET PO SCH (20:46)
[2019-07-11 04:02] LABS: Basophils % 0.3 %; Eosinophils # 0.1 K/mcL (0.0-0.6); Eosinophils % 1.4 %; Hematocrit 46.4 % (37.5-50.1); Immature Granulocytes % 0.4 % (0-4); Lymphocytes # 3.4 K/mcL (0.6-4.6); Mean Corpuscular HGB Conc 34.5 g/dL (31.6-35.5); Mean Corpuscular Hemoglobin 29.8 pg (28.0-33.3); Mean Corpuscular Volume 86.4 fL (83.0-100.0); Mean Platelet Volume 10.7 fL (9.4-12.4); Monocytes # 0.6 K/mcL (0.0-1.3); Monocytes % 6.3 %; Neutrophils # 5.2 K/mcL (1.6-8.9); Platelet Count 183 K/mcL (140-400); Red Blood Count 5.37 M/mcL (4.19-5.50); Red Cell Distribution Width 12.6 % (11.5-14.5); Segmented Neutrophils % 55.6 %; White Blood Count 9.4 K/mcL (4.3-11.1)
[2019-07-11 04:22] LABS: BUN/Creatinine Ratio 21 (6-26); Blood Urea Nitrogen 17 mg/dL (6-20); Calcium 9.4 mg/dL (8.6-10.3); Carbon Dioxide 24 mEq/L (23-29); Chloride 102 mEq/L (98-107); Glucose 262 mg/dL (70-105); Osmolality,Calculated 291 (280-300); Potassium 4.3 mEq/L (3.5-5.1); Sodium 135 mEq/L (136-145); eGFR For African Americans > 60 (> 60); eGFR For Non-African Americans > 60 (> 60)
--- NOTE | 2019-07-11 07:52 | Internal Med Progress Note ---
<Benedicto Higgins - Last Filed: 07/11/19 09:18> Hospitalist Progress Note - Encounter Date of Encounter: 07/11/19 Time of Encounter: 07:52 - Subjective Interval History: Mr. Wood awake, at bedside, comfortable. Slightly anxious about upcoming LHC but otherwise normal. Continues to have mild chest pain that is unchanged with occasional lightheadedness. Lightheadedness likely related to lower than normal BP while admitted. Discussed possibility of discharge tomorrow pending LHC today. He had no questions about the procedure. - Exam Vitals: Temp Pulse Resp BP Pulse Ox 97.7 F 60 17 97/61 97 07/11/19 06:47 07/11/19 06:47 07/11/19 06:47 07/11/19 03:43 07/11/19 06:47 Exam: GA: cooperative, A&O X 3, NAD Head: atraumatic, normocephalic. Eyes: normal appearance, conjuntiva pink ENT: mucous membranes moist Resp: no chest wall tenderness, CTAB. No rales, rhonchi, wheezes CV: RRR, +S1, +S2. No murmur, rub, gallop GI: normal bowel sounds, soft. No distention, guarding, tenderness Ext: full ROM, warm, No cyanosis, edema. Neuro: CN II-XII grossly intact, no focal deficit. - Assessment and Plan (1) Chest pain Current Visit: Yes Status: Suspected Assessment and Plan: Stable. Day 2 cardiac stress test revealed perfusion abnormalities per cardio. Plan to perform LHC today. - Continue asa, metoprolol, imdur, statin per cards - NPO - LHC today - Tylenol PRN for pain (2) Syncope Current Visit: Yes Status: Resolved Assessment and Plan: No additional episodes of syncope since admission. Lightheadedness unchanged when standing. Likely related to lower than normal blood pressures. Orthostatics normal. - Plan to fluid bolus today following LHC to determine if this improves symptoms. (3) Angina pectoris Current Visit: No Status: Chronic Assessment and Plan: Pain unchanged today. Perfusion defect noted on day 2 stress test. LHC today. - Continue tylenol PRN. - 81 mg ASA daily. - Long acting nitrate. - Tele. (4) CAD (coronary artery disease) Current Visit: No Status: Chronic Assessment and Plan: ASA, statin. LHC today. (5) Diabetes mellitus type 2 in obese Current Visit: No Status: Chronic Assessment and Plan: Lightheadedness could be secondary to food intake/lower than normal BS. BS today 262. - Continue Humalog sliding scale. - Accuchecks ACHS. - Continue cardiac diet, monitor for hypoglycemia. - Continue home losartan. (6) Hypertension Current Visit: No Status: Chronic Assessment and Plan: Lower than baseline blood pressures could be contributing to lightheadedness symptoms. - Possible fluid bolus following LH. - Monitor for hypotension. - BP well controlled. (7) GERD (gastroesophageal reflux disease) Current Visit: Yes Status: Chronic Assessment and Plan: Continues to be asymptomatic. Reports significant nausea when his GERD is uncontrolled. - Famotadine 20 mg. - Protonix if GERD moderate-severe. - Time Spent with Patient Total time spent is greater than 50% in coordination of care (as documented) at patient's floor/unit and/or counseling patient: Plan of Care Discussed with: patient Internal Medicine: Result - Labs CBC & Chem 7: 07/11/19 03:52 07/11/19 03:52 Labs: Short CBC 07/11/19 Range/Units 03:52 WBC 9.4 (4.3-11.1) K/mcL Hgb 16.0 (12.9-16.9) g/dL Hct 46.4 (37.5-50.1) % Plt Count 183 (140-400) K/mcL Neutrophils # 5.2 (1.6-8.9) K/mcL BMP 07/11/19 03:52 Sodium 135 L Potassium 4.3 Chloride 102 Carbon Dioxide 24 BUN 17 Creatinine 0.80 Glucose 262 H Calcium 9.4 - ABG Interpretation ABG results: PT/INR, D-dimer PT 11.5 Seconds (9.4-12.1) 07/07/19 11:21 Consult Discharge Plan - Plan Referrals: NONE,PCP [Primary Care Provider] - <Deon Christianson - Last Filed: 07/11/19 16:41> Hospitalist Progress Note - Encounter Date of Encounter: 07/11/19 - Exam Vitals: Temp Pulse Resp BP Pulse Ox 97.8 F 65 17 122/79 95 07/11/19 11:47 07/11/19 11:47 07/11/19 11:47 07/11/19 11:47 07/11/19 11:47 - Assessment and Plan (1) Chest pain Current Visit: Yes Status: Suspected (2) Syncope Current Visit: Yes Status: Resolved (3) Diabetes mellitus Current Visit: No Status: Acute (4) Hypertension Current Visit: No Status: Chronic - Time Spent with Patient Total time spent is greater than 50% in coordination of care (as documented) at patient's floor/unit and/or counseling patient: Internal Medicine: Result - Labs CBC & Chem 7: 07/11/19 03:52 07/11/19 03:52 Labs: Short CBC 07/11/19 Range/Units 03:52 WBC 9.4 (4.3-11.1) K/mcL Hgb 16.0 (12.9-16.9) g/dL Hct 46.4 (37.5-50.1) % Plt Count 183 (140-400) K/mcL Neutrophils # 5.2 (1.6-8.9) K/mcL BMP 07/11/19 03:52 Sodium 135 L Potassium 4.3 Chloride 102 Carbon Dioxide 24 BUN 17 Creatinine 0.80 Glucose 262 H Calcium 9.4 - ABG Interpretation ABG results: PT/INR, D-dimer PT 11.5 Seconds (9.4-12.1) 07/07/19 11:21 - Attending Attestation I examined this patient and my medical decision-making was reviewed with the Resident Physician on 07/11/19. I agree with the documented findings, disposition and treatment plan as described except to the extent set forth below. Mr. Wood is currently hospitalized for chest pain and syncope. He is to have [facility] today. Mr Wood feels OK. No fever or chills. No new symptoms. Exam Alert Comfortable Mucus membranes dry Heart not tachy No wheeze Abd soft Plan [facility] today. <Benedicto Higgins - Last Filed: 07/11/19 09:18> (1) Chest pain Qualifiers: Chest pain type: chest pain due to myocardial ischemia Ischemic chest pain type: other angina pectoris type Qualified Code(s): I20.8 - Other forms of angina pectoris (2) Syncope Qualifiers: Syncope type: unspecified Qualified Code(s): R55 - Syncope and collapse (4) CAD (coronary artery disease) Qualifiers: Coronary Disease-Associated Artery/Lesion type: [place] artery [place] vs. transplanted heart: [place] heart Associated angina: with unspecified angina Qualified Code(s): I25.119 - Atherosclerotic heart disease of [place] coronary artery with unspecified angina pectoris (6) Hypertension Qualifiers: Hypertension type: essential hypertension Qualified Code(s): I10 - Essential (primary) hypertension (7) GERD (gastroesophageal reflux disease) Qualifiers: Esophagitis presence: without esophagitis Qualified Code(s): K21.9 - Gastro- esophageal reflux disease without esophagitis <Deon Christianson - Last Filed: 07/11/19 16:41> (1) Chest pain Qualifiers: Chest pain type: chest pain due to myocardial ischemia Ischemic chest pain type: other angina pectoris type Qualified Code(s): I20.8 - Other forms of angina pectoris (2) Syncope Qualifiers: Syncope type: unspecified Qualified Code(s): R55 - Syncope and collapse (3) Diabetes mellitus Qualifiers: Diabetes mellitus type: type 2 Diabetes mellitus [place] insulin use: without [place] use Diabetes mellitus complication status: with circulatory complication Diabetes mellitus complication detail: with other circulatory complications Qualified Code(s): E11.59 - Type 2 diabetes mellitus with other circulatory complications (4) Hypertension Qualifiers: Hypertension type: essential hypertension Qualified Code(s): I10 - Essential (primary) hypertension
[2019-07-11] MEDS: Aspirin Enteric Coated 81 MG Tablet PO SCH (07:54)
[2019-07-11] MEDS: Isosorbide MONOnitrate (24 HR) 30 MG TAB.ER.24H PO SCH (07:54)
[2019-07-11] MEDS ORDERED: 0.9 % Sodium Chloride 1,000 ML IVC ONE (11:18)
[2019-07-11] MEDS: Insulin LISPRO 300 UNITS/3 ML VIAL SQ SCH ×3 (11:25→20:20)
[2019-07-11] MEDS ORDERED: 0.9 % Sodium Chloride 1,000 ML ONE (13:36)
[2019-07-11] MEDS ORDERED: Heparin 1,000 UNITS/500 mL 500 ML ONE ×2 (13:36→14:59)
[2019-07-11] MEDS ORDERED: *HR* Heparin 10,000 UNIT/10 ML VIAL ONE (13:37)
[2019-07-11] MEDS ORDERED: Nitroglycerin 1,000 MCG/10 ML VIAL IV ONE (13:37)
[2019-07-11] MEDS ORDERED: Iopamidol 125 ML INFUS..BTL ONE ×4 (13:37→14:36)
--- NOTE | 2019-07-11 13:43 | Pre-Sedation Evaluation ---
Pre-sedation evaluation - Pre-sedation checklist Date of procedure: 07/11/19 Procedure: [facility] Recent Vitals: Last Vital Signs Temp 97.8 F 07/11/19 11:47 Pulse 65 07/11/19 11:47 Resp 17 07/11/19 11:47 BP 122/79 07/11/19 11:47 Pulse Ox 95 07/11/19 11:47 H&P (including ROS) documented in medical record: Yes Previous reaction to sedatives/anesthetics: No Dietary Status: NPO after Midnight Airway Assessment: Patient can open mouth completely, TMJ function normal, Micrognathia (under-bite, receding chin) absent, Neck with adequate range of mot ion Dentition: No loose teeth or bridges Possible difficult airway: No ASA Classification *see protocol: CLASS II-Mild systemic disease Plan of Care: Pt appropriate candidate for procedure/moderate/conscious sedation, Risks/benefits of procedure/sedation discussed w/ patient/family Cardiac Registry (Cardio Only) - Functional Capacity Functional Capacity: >=4 METS with symptoms - Clincal Frailty Scale Clinical Frailty Scale: Managing Well
[2019-07-11] MEDS ORDERED: *HR* Midazolam HCl 2 MG/2 ML VIAL ONE ×2 (13:52→14:20)
[2019-07-11] MEDS ORDERED: *HR* FentaNYL (PF) 100 MCG/2 ML VIAL ONE (13:52)
[2019-07-11] MEDS ORDERED: *HR* Bivalirudin 250 MG VIAL IVC ONE ×2 (14:48→14:58)
[2019-07-11] MEDS ORDERED: *HR* Ticagrelor 90 MG TABLET ONE (15:01)
[2019-07-11] MEDS ORDERED: 0.9 % Sodium Chloride 1,000 ML IVC SCH (15:30)
--- NOTE | 2019-07-11 19:06 | Invasive Diagnostic Lab Proc ---
Name: Archie Wood Date of Study: 07/11/2019 Date: 1970 Ht: 68.9in Medical Record#: [id number] Age: 49 Wt: 282.19lb Gender: Male BSA: 2.39 Order #: [id number] BMI: 41.8 Physicians Procedure Physician: Marianela Ramires MD, [facility] Referring MD: Referring MD: Staff Name Position Time In Krishna Lorenzo RN Monitor 01:56 PM Yefri Alvarez RN Sand Carrier 01:56 PM Annmarie Gordon RT (R) Scrub 01:56 PM Procedures Performed Procedure L HRT ART/GRFT ANGIO PRQ CARD DAYANA STENT W/ANGIO 1 VSL Pre-Procedure Checklist Informed consent is complete signed and on chart. H&P is on chart. ID band is on and ID verified with patient. Patient NPO for procedure The procedure was described for the patient and questions were answered. ECG is on chart. Plan of Care Patient will tolerate the procedure without complications. Adequate level of comfort will be maintained. Hemodynamics will remain stable Patient will recover from procedure without complications. Respiratory function will be maintained. Cardiac rhythm will remain stable. Patient temperature will be maintained. Patient and/or family have verbalized understanding of the procedure. Patient Education Chief Complaint/Reason for Test: Cardiac Cath Developmental Category: Adult (18-64 years) Developmentally Appropriate for Age: Yes Learning Barriers: None Education Needs: Procedure Education Method: Verbal Information Taught: Cardiac Cath Educational Evaluation: Able to repeat information Intravenous Access Time IV Size Location DC'd Fluid/Drip Rate Units RN 20g 1 11/11" Patent On Arrival 0.9NaCl ml/hr Allergies wellbutrin Cyclobenzaprine Bupropion Penicillins Vital Signs Time BP (mmHg) HR (bpm) O2 Sat. RR (bpm) LOC 01:56 PM / % 5 = Fully awake and oriented or at pre-proc level 01:56 PM / % 4 = Oriented but drowsy 02:11 PM / % 4 = Oriented but drowsy 02:26 PM / % 4 = Oriented but drowsy 02:41 PM / % 4 = Oriented but drowsy 02:31 PM 117 / 71 70 95 % 18 02:36 PM 115 / 65 67 95 % 20 02:41 PM 111 / 62 64 93 % 17 02:45 PM 124 / 72 66 95 % 19 02:56 PM 119 / 73 65 86 % 20 03:00 PM 111 / 68 75 89 % 20 03:06 PM 106 / 66 75 93 % 16 01:56 PM 165 / 91 67 94 % 15 02:00 PM 135 / 82 71 95 % 16 02:06 PM 132 / 75 69 99 % 15 02:11 PM 135 / 75 69 98 % 18 02:15 PM 130 / 75 66 98 % 20 02:21 PM 124 / 73 68 97 % 17 02:26 PM 119 / 76 68 95 % 19 03:43 PM 111 / 76 66 96 % 18 5 = Fully awake and oriented or at pre-proc level 04:00 PM 140 / 80 56 98 % 16 4 = Oriented but drowsy 04:15 PM 123 / 77 64 98 % 16 5 = Fully awake and oriented or at pre-proc level 04:30 PM 128 / 90 70 97 % 18 5 = Fully awake and oriented or at pre-proc level 04:45 PM 131 / 94 67 96 % 14 5 = Fully awake and oriented or at pre-proc level 05:00 PM 121 / 95 70 98 % 16 5 = Fully awake and oriented or at pre-proc level 05:15 PM 143 / 93 68 98 % 16 5 = Fully awake and oriented or at pre-proc level 05:30 PM 141 / 80 65 98 % 18 5 = Fully awake and oriented or at pre-proc level 05:45 PM 126 / 73 70 98 % 18 5 = Fully awake and oriented or at pre-proc level 06:00 PM 126 / 73 67 99 % 14 5 = Fully awake and oriented or at pre-proc level Procedural Medications Time Medication Dose Units Method Given By 01:56 PM Oxygen 2 L/min nasal cannula Yefri Alvarez RN 01:57 PM Versed 2 mg Intravenous Yefri Alvarez RN 01:57 PM Fentanyl 50 mcg Intravenous Yefri Alvarez RN 02:06 PM Benadryl 25 mg Intravenous Yefri Alvarez RN 02:07 PM Lidocaine 2% 20 ml Subcutaneous Marianela Ramires MD, FACC 02:20 PM Versed 1 mg Intravenous Yefri Alvarez RN 02:20 PM Fentanyl 25 mcg Intravenous Yefir Alvarez RN 02:51 PM Angiomax 0.75mg/kg bolus: 19.5 ml Intravenous Yefri Alvarez RN 02:51 PM Angiomax 1.75mg/kg/hr: 45.5 ml Intravenous Yefri Alvarez RN 02:52 PM Versed 1 mg Intravenous Yefri Alvarez RN 02:52 PM Fentanyl 25 mcg Intravenous Yefri Alvarez RN 02:59 PM Nitroglycerin 200 mcg Intracoronary Marianela Ramires MD, [facility] 03:04 PM Nitroglycerin 200 mcg Intracoronary Marianela Ramires MD, [facility] 03:05 PM Brilinta 180 mg Orally Yefri Alvarez RN ASA Classification: CLASS II- Mild systemic disease (i.e. well-controlled diabetes, hypertension, asthma, cigarette smoking) Missael Score Preprocedure Postprocedure Activity 2- Moves 4 extremities sustained head lift Activity 2- Moves 4 extremities sustained head lift Circulation 2- SBP +/= 20 points of pre-anesthetic level Circulation 2- SBP +/= 20 points of pre-anesthetic level Consciousness 2- Awake and alert oriented x 3 Consciousness 2- Awake and alert oriented x 3 O2 Saturation 2- Able to maintain O2 satruation of 92% on room air O2 Saturation 2- Able to maintain O2 satruation of 92% on room air Respiratory 2- Able to deep breathe and cough well Respiratory 2- Able to deep breathe and cough well Total Score 10 Total Score 10 Contrast Agent: Isovue Diagnostic Contrast: 329 ml Total Contrast: 329 ml Fluoro Dose: 169 mGy Procedure Log Time Note Enter By 01:55 PM Vitals capture started with the following parameters, Patient=Adult, Interval=5 min, Initial Nmfizfpd=783 mmHg, Deflation Rate=3 mmHg, Cuff placed on Right Arm 01:55 PM Recorded ECG: HR=70 Condition=Condition 1 01:55 PM CathStat 01:55 PM Recorded ECG: HR=66 Condition=Condition 1 01:55 PM 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 oparker 01:55 PM Physician arrived 13:55 oparker 01:55 PM Meet and greet completed oparker 01:55 PM Sign in performed according to hospital policy. Informed consent was obtained. oparker 01:56 PM HR=67 bpm, OUXP=823/91 mmhg, SpO2=94.0 %, Resp=15 B/min, EtCO2=35 mmHg, Comment=NSR 01:56 PM Krishna Lorenzo RN Position: Monitor Time in: : jeanette :56 PM Yefri Alvarez RN Position: Sand Carrier Time in: : opayumiko PM Annmarie Gordon RT (R) Position: Scrub Time in: :56 opayumiko 56 PM Time: 13:56 Patient comfortable and pain free: Yes oparnina PM Time: 13:56LOC: 5 = Fully awake and oriented or at pre-proc level oparnina PM Procedure start : opayumiko PM Time: 13:56 Oxygen on at 2 L/min per nasal cannula [facility] PM Time: 13:57 Versed 2 mg Intravenous Given by Yefri Alvarez RN PM Time: 13:57 Fentanyl 50 mcg Intravenous Given by Yefri Alvarez RN :57 PM ASA Class CLASS II- Mild systemic disease (i.e. well-controlled diabetes, hypertension, asthma, cigarette smoking) oparker 02:00 PM HR=71 bpm, ANHQ=792/82 mmhg, SpO2=95.0 %, Resp=16 B/min, EtCO2=37 mmHg, Comment=NSR 02:05 PM Clinical Presentation: Unstable angina cedwards 02:05 PM Time out was performed according to hospital policy. Conscious sedation and anesthesia was achieved (see medication log with in this report above) cedwards 02:06 PM HR=69 bpm, FKTT=685/75 mmhg, SpO2=99.0 %, Resp=15 B/min, EtCO2=38 mmHg, Comment=NSR 02:06 PM Time: 14:06 Benadryl 25 mg Intravenous Given by Yefri Alvarez RN cedwards 02:07 PM Time: 14:07 20 ml Lidocaine 2% to right groin Subcutaneous Given by Marianela Ramires MD, [facility] cedwards 02:07 PM Access obtained by percutaneous puncture. 5Fr 10cm Terumo [place] sheath placed in right Femoral artery. [id number] cedwards 02:08 PM 0.035 145cm Navilyst 3mmJ wire [id number] cedwards 02:08 PM 5Fr FL 4 catheter inserted over the wire [facility] cedwards 02:09 PM LCA angiography performed in multiple views. cedwards 02:09 PM Recorded Pressure: Ao, HR=63, Condition=Condition 1 (Aorta) Ao 97/75/86 02:10 PM Catheter removed ced 02:10 PM 5Fr FR 4 catheter inserted over the wire [facility] ced 02:11 PM HR=69 bpm, CMJH=998/75 mmhg, SpO2=98.0 %, Resp=18 B/min, EtCO2=36 mmHg, Comment=NSR 02:11 PM Time: 13:56 Patient comfortable and pain free: Yes ced 02:11 PM Time: 13:56LOC: 4 = Oriented but drowsy cedwards 02:11 PM Recorded Pressure: Ao, HR=72, Condition=Condition 1 (Aorta) Ao 92/72/83 02:12 PM RCA angiography performed in multiple views. ced 02:12 PM SVG to the 2nd OM angio performed in multiple views. cedwards 02:15 PM Catheter removed ced 02:15 PM 5Fr IM catheter inserted over the wire [id number] cedwards 02:15 PM HR=66 bpm, KDRS=310/75 mmhg, SpO2=98.0 %, Resp=20 B/min, EtCO2=35 mmHg, Comment=NSR 02:17 PM Left DARREN to the LAD angio performed in multiple views. ced 02:18 PM Catheter removed 02:18 PM 5Fr LCB catheter inserted over the wire [id number] ced 02:20 PM Time: 14:20 Versed 1 mg Intravenous Given by Yefri Alvarez RN ced 02:20 PM Time: 14:20 Fentanyl 25 mcg Intravenous Given by Yefri Alvarez RN 02:21 PM HR=68 bpm, YIFI=732/73 mmhg, SpO2=97.0 %, Resp=17 B/min 02:22 PM Catheter removed ced 02:22 PM 5Fr Pigtail catheter inserted over the wire [facility] ced 02:22 PM Catheter crossed the aortic valve and was selectively placed in the left ventricle. Pressures recorded on pullback for left heart catheterization. cedwards 02:22 PM Pressure channel 1 zero failed. 02:22 PM Pressure channel 1 zeroed. 02:23 PM Recorded Pressure: LV, HR=67, Condition=Condition 1 (Left Ventricle) LV 111/-6/8 02:23 PM Bolus angiogram of left Ventricle complete: 8 ml/sec for a total of 24 mls cedwards 02:23 PM Recorded Pressure: LV, Ao, HR=71, Condition=Condition 1 (Left Ventricle) LV 75/15/18, (Aorta) Ao 80/56/69 02:26 PM HR=68 bpm, ADDM=798/76 mmhg, SpO2=95.0 %, Resp=19 B/min, Comment=NSR 02:26 PM Bolus angiogram of Aortic root complete: 8 ml/sec for a total of 24 mls cedwards 02:26 PM Time: 14:11 Patient comfortable and pain free: Yes cedwards 02:26 PM Time: 14:11LOC: 4 = Oriented but drowsy cedwards 02:27 PM 5Fr MPA1 catheter inserted over the wire [id number] cedwards 02:30 PM unable to engage graft cedwards 02:30 PM Catheter removed cedwards 02:31 PM HR=70 bpm, SRFI=382/71 mmhg, SpO2=95.0 %, Resp=18 B/min, EtCO2=36 mmHg, Comment=NSR 02:31 PM 5Fr 3DRC catheter inserted over the wire [id number] cedwards 02:35 PM Recorded Pressure: Ao, HR=68, Condition=Condition 1 (Aorta) Ao 81/35/61 02:35 PM unable to engage graft cedwards 02:35 PM Catheter removed cedwards 02:36 PM HR=67 bpm, IUVQ=904/65 mmhg, SpO2=95.0 %, Resp=20 B/min, EtCO2=22 mmHg, Comment=NSR 02:36 PM 5Fr AR MOD catheter inserted over the wire [id number] cedwards 02:37 PM SVG to the RPDA angio performed in multiple views. cedwards 02:40 PM Catheter removed cedwards 02:40 PM IM catheter reinserted. cedwards 02:41 PM HR=64 bpm, FFTF=886/62 mmhg, SpO2=93.0 %, Resp=17 B/min 02:41 PM Time: 14:26LOC: 4 = Oriented but drowsy cedwards 02:41 PM Time: 14:26 Patient comfortable and pain free: Yes cedwards 02:44 PM Unable to engage graft cedwards 02:45 PM Catheter removed cedwards 02:45 PM HR=66 bpm, LBKS=930/72 mmhg, SpO2=95 %, Resp=19 B/min 02:46 PM Sheath exchanged for a 6 Fr 11 cm Wheebox Destination sheath [id number] cedwards 02:47 PM 6Fr XB LAD 3.5 Cordis guide catheter was used to cannulate the PCI vessel successfully. reused? No cedwards 02:47 PM .014 Prowater 180cm guide wire across target lesion- successful. reused? No cedwards 02:47 PM Inflation device was opened. cedwards 02:51 PM Time: 14:51 Angiomax 0.75mg/kg bolus: 19.5 ml Intravenous Given by Yefri Alvarez RN Childs pump cedwards 02:52 PM Time: 14:51 Angiomax 1.75mg/kg/hr: 45.5 ml Intravenous Given by Yefri Alvarez RN Childs pump cedwards 02:52 PM Time: 14:52 Versed 1 mg Intravenous Given by Yefri Alvarez RN cedwards 02:52 PM Time: 14:52 Fentanyl 25 mcg Intravenous Given by Yefri Alvarez RN cedwards 02:53 PM 6Fr XB LAD 3.5 Cordis guide catheter was used to cannulate the PCI vessel successfully. reused? No cedwards 02:55 PM Inflation device was opened. cedwards 02:56 PM HR=65 bpm, HETP=845/73 mmhg, SpO2=86.0 %, Resp=20 B/min, EtCO2=35 mmHg 02:56 PM Recorded Pressure: Ao, HR=69, Condition=Condition 1 (Aorta) Ao 86/49/67 02:57 PM Time: 14:41 Patient comfortable and pain free: Yes cedwards 02:57 PM Time: 14:41LOC: 4 = Oriented but drowsy cedwards 02:57 PM 2.0 mm x 12 mm Emerge Monorail balloon across target lesion- successful. reused? No cedwards 02:57 PM Balloon inflated @ 8 maribel for 20 seconds cedwards 02:58 PM Balloon inflated @ 10 mairbel for 15 seconds cedwards 02:58 PM Balloon catheter removed intact. ced 02:59 PM Time: 14:59 Nitroglycerin 200 mcg Intracoronary Given by Marianela Ramires MD, [facility] cedwards 03:00 PM HR=75 bpm, PGKE=351/68 mmhg, SpO2=89.0 %, Resp=20 B/min 03:01 PM 2.75mm x 38mm Synergy drug-eluting stent across target lesion- successful Lot #[id number] cedwards 03:02 PM Stent deployed @ 12 maribel for 30 seconds cedwards 03:03 PM Stent delivery system removed intact. cedwards 03:04 PM Time: 15:04 Nitroglycerin 200 mcg Intracoronary Given by Marianela Ramires MD, [facility] cedwards 03:04 PM Guide wire removed intact. cedwards 03:05 PM Time: 15:05 Brilinta 180 mg Orally Given by Yefri Alvarez RN, crushed cedwards 03:05 PM Guide catheter removed intact. cedwards 03:06 PM HR=75 bpm, PUGM=366/66 mmhg, SpO2=93.0 %, Resp=16 B/min 03:14 PM Did you address GERA flow and Dominance? YesCoronary Dominance: right cedwards 03:16 PM Procedure completed at 15:16 07/11/2019 cedwards 03:17 PM Sign out completed: Radiation Dose 1371.47 mGy, 169 Gy/cm2 Fluoro Time: 20.5 Isovue 370 - 200ml contrast 329 ml given by Marianela Ramires MD, [facility]. Complications: None. 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 Sedation minutes 80. Cardiac Rehab Consult needed: Yes. Confirmed administered medications: Yes cedwards 03:17 PM Isovue 370 - 200ml,3 Bottle(s) used. cedwards 03:17 PM Sheath left in place to be pulled on floor/holding areaV+Pad cedwards 03:18 PM Estimated Blood Loss: minimal cedwards 03:18 PM Post ECG NSR cedwards 03:18 PM Post Blood Pressure 106/66 cedwards 03:18 PM Information taught Cardiac Cath and PCI cedwards 03:18 PM Education needs Procedure, Plan of Care, and Disease Process cedwards 03:18 PM Learning barriers :None cedwards 03:18 PM Education Methods Verbal cedwards 03:18 PM Education evaluation Able to repeat information cedwards 03:18 PM Site status No bleeding/ No Hematoma - Rt Groin as reported by Annmarie Gordon RT (R) at 15:18 cedwards 03:18 PM Report given to Maryam NGUYEN Pt taken to Holding room Room #1. 15:18 cedwards 03:19 PM No family available. cedwards 03:19 PM Patient out of room: 15:19 cedwards 03:19 PM Complications: None cedwards 03:20 PM Lesion found in 1st Marginal. Pre Stenosis: 80 Pre GERA Flow: 3: Complete and Brisk Flow/Perfusion cedwards 03:21 PM Lesion found in Proximal RCA. Pre Stenosis: 60 Pre GERA Flow: cedwards 03:21 PM Lesion found in Mid RCA. Pre Stenosis: 100 Pre GERA Flow: cedwards 03:21 PM Lesion found in Proximal LAD. Pre Stenosis: 100 Pre GERA Flow: cedwards 03:22 PM Lesion found in 1st Diagonal. Pre Stenosis: 100 Pre GERA Flow: cedwards 03:22 PM Lesion found in Proximal Circumflex. Pre Stenosis: 40 Pre GERA Flow: cedwards 03:22 PM Lesion found in Mid Circumflex. Pre Stenosis: 100 Pre GERA Flow: cedwards 03:43 PM checked into SDS 14, sheath in place [email or web address] 06:11 PM Report given to [place] NGUYEN. 18:[facility] Arterial sheath pulled using manual compression and V+ Pad for 15 minutes by Norma Gonzales RN [facility] 06:40 PM Site status No bleeding/ No Hematoma - Rt Groin as reported by Norma Gonzales RN at 18:40 [facility] 06:40 PM Opsite applied avis 06:56 PM patient taken to 2a63 at this time. [facility] Complications Complication None None Hemodynamics Pressures Site Systolic/A Wave Diastolic/V Wave Mean AO 97 75 86 AO 92 72 83 LV 111 -6 8 LV 75 15 18 AO 80 56 69 AO 81 35 61 AO 86 49 67 Post Procedure Information Blood Pressure: 106/66 mmHg Rhythm: NSR Post procedural instructions were given Site Checks Time Location Status Staff Sheath In? Note 03:18 PM Rt Groin No bleeding/ No Hematoma Annmarie Gordon RT (R) 03:43 PM Rt Groin No bleeding/ No Hematoma Bharti Puentes RN Yes 04:00 PM Rt Groin No bleeding/ No Hematoma Eduardo Carranza RN Yes 04:15 PM Rt Groin No bleeding/ No Hematoma Eduardo Carranza RN Yes 04:30 PM Rt Groin No bleeding/ No Hematoma Eduardo Carranza RN Yes 04:45 PM Rt Groin No bleeding/ No Hematoma Eduardo Carranza RN Yes 05:00 PM Rt Groin No bleeding/ No Hematoma Eduardo Carranza RN Yes 05:15 PM Rt Groin No bleeding/ No Hematoma Eduardo Carranza RN Yes 05:30 PM Rt Groin No bleeding/ No Hematoma Eduardo Carranza RN Yes 05:45 PM Rt Groin No bleeding/ No Hematoma Eduardo Carranza RN Yes 06:00 PM Rt Groin No bleeding/ No Hematoma Norma Gonzales RN Yes 06:57 PM Rt Groin No bleeding/ No Hematoma Norma Gonzales RN Pulses Time Site Pre-Procedure Post-Procedure Note Bilateral DP & PT 2+ Bilateral radial 2+ Updated by Norma Gonzales RN on 07/11/2019 6:57:58 PM electronically signed on 07/11/2019 6:58:53 PM with status of Final
[2019-07-11] MEDS: Acetaminophen 325 MG TABLET PO PRN (20:20)
[2019-07-11] MEDS: Famotidine 20 MG TABLET PO SCH (20:21)
[2019-07-12 04:57] LABS: Basophils % 0.4 %; Eosinophils # 0.1 K/mcL (0.0-0.6); Eosinophils % 1.2 %; Hematocrit 44.7 % (37.5-50.1); Hemoglobin 14.9 g/dL (12.9-16.9); Immature Granulocytes % 0.7 % (0-4); Lymphocytes # 2.6 K/mcL (0.6-4.6); Mean Corpuscular HGB Conc 33.3 g/dL (31.6-35.5); Mean Corpuscular Hemoglobin 29.5 pg (28.0-33.3); Mean Corpuscular Volume 88.5 fL (83.0-100.0); Mean Platelet Volume 10.8 fL (9.4-12.4); Monocytes # 0.5 K/mcL (0.0-1.3); Monocytes % 6.4 %; Neutrophils # 4.9 K/mcL (1.6-8.9); Platelet Count 170 K/mcL (140-400); Red Blood Count 5.05 M/mcL (4.19-5.50); Red Cell Distribution Width 12.9 % (11.5-14.5); Segmented Neutrophils % 59.3 %; White Blood Count 8.2 K/mcL (4.3-11.1)
[2019-07-12 05:19] LABS: BUN/Creatinine Ratio 23 (6-26); Blood Urea Nitrogen 15 mg/dL (6-20); Carbon Dioxide 22 mEq/L (23-29); Chloride 104 mEq/L (98-107); Glucose 241 mg/dL (70-105); Osmolality,Calculated 289 (280-300); Potassium 4.1 mEq/L (3.5-5.1); Sodium 135 mEq/L (136-145); eGFR For African Americans > 60 (> 60); eGFR For Non-African Americans > 60 (> 60)
[2019-07-12] MEDS: Aspirin Enteric Coated 81 MG Tablet PO SCH (07:48)
[2019-07-12] MEDS: Isosorbide MONOnitrate (24 HR) 30 MG TAB.ER.24H PO SCH (07:48)
[2019-07-12] MEDS: Insulin LISPRO 300 UNITS/3 ML VIAL SQ SCH ×2 (07:49→11:56)
--- NOTE | 2019-07-12 11:04 | Cardiology Progress Note ---
Date of Encounter: 07/12/19 Time of Encounter: 10:30 Assessment and Plan (1) Chest pain Current Visit: No Status: Resolved Per cardiology: -Chest discomfort, syncope unclear etiology. -LVEF preserved. -Serial troponin measurements negative. -Underwent stress test with perfusion abnormalities noted. -LHC yesterday with 3/5 patent bypass grafts. PCI to OM1 with DAYANA. -On asa, plavix, statin, BB, imdur. Educated on dual anti-platelet therapy uninterrupted for at least one year, states understanding. -Right groin access site without ecchymosis or hematoma, right groin access site management education reviewed with patient and family, state understanding. -Cardiology will sign off. Will arrange outpatient follow up. -Risk factor modification stressed with patient. Qualifiers: Chest pain type: other chest pain Qualified Code(s): R07.89 - Other chest pain; R07.8 - Other chest pain (2) CAD (coronary artery disease) Current Visit: No Status: Chronic Per cardiology: -CAD s/p CABG. -See recommendations under chest discomfort. Qualifiers: Coronary Disease-Associated Artery/Lesion type: [place] artery [place] vs. transplanted heart: [place] heart Associated angina: with unspecified angina Qualified Code(s): I25.119 - Atherosclerotic heart disease of [place] coronary artery with unspecified angina pectoris (3) Syncope Current Visit: Yes Status: Resolved Per cardiology: -Unclear etiology. -No events on telemetry. -Blood pressure presently well controlled. Check orthostatic vital signs. -LVE normal per TTE. Qualifiers: Syncope type: unspecified Qualified Code(s): R55 - Syncope and collapse Discussion w patient/family: The assessment and plan as outlined above was discussed with the patient who expressed understanding and agreement. All questions were answered. Thank you for involving us in the care of your patient. Please call with any questions. Discussed and reviewed with Subjective Principal diagnosis: Chest pain Interval history: Patient denies current chest pain s/p LHC yesterday with PCI Objective Vital Signs, Last 4 Hours Temp Pulse Resp BP Pulse Ox 07/12/19 07:57 96 07/12/19 07:18 97.9 F 63 16 131/83 96 General: Conversant, No Apparent Distress HEENT: Atraumatic, Normocephaly, Mucus Membranes Moist Neck: No JVD, Normal carotid pulses Cardiac: Reg Rate and Rhythm, Normal S1 and S2, No Murmur Lungs: Normal Breath Sounds, No Wheeze, Rales, Rhonchi Neuro: Alert and responsive, No focal deficits noted Abdomen: Soft, Non-Tender Skin: No rashes noted on visualized skin, Other (Right groin access site without ecchymosis or hematoma. ) Musculoskeletal: No Chest Wall Tenderness Extremities: No Clubbing, No Cyanosis, No Edema, Normal Pulses Results 07/12/19 04:10 07/12/19 04:10 Lab Results Active Medications Acetaminophen (Tylenol) 650 mg PO Q6HR PRN PRN Reason: Mild Pain/Fever Stop: 01/06/20 16:50 Last Admin: 07/11/19 20:20 Dose: 650 mg Documented by: Aspirin (Aspirin Ec) 81 mg PO DAILY [facility] Stop: 01/07/20 09:01 Last Admin: 07/12/19 07:48 Dose: 81 mg Documented by: Atorvastatin Calcium (Lipitor) 80 mg PO [facility] Stop: 01/06/20 21:01 Last Admin: 07/11/19 20:21 Dose: 80 mg Documented by: Clopidogrel Bisulfate (Plavix) 75 mg PO DAILY [facility] Stop: 01/11/20 09:01 Last Admin: 07/12/19 07:48 Dose: 75 mg Documented by: Dextrose/Water (Dextrose 50% (Syg)) 25 ml IVP AD PRN PRN Reason: Hypoglycemia Stop: 01/06/20 16:55 Famotidine (Pepcid) 20 mg PO [facility] Stop: 01/06/20 21:01 Last Admin: 07/11/19 20:21 Dose: 20 mg Documented by: Glucagon (Glucagen) 1 mg IM ONCE PRN PRN Reason: Hypoglycemia Stop: 01/06/20 16:55 Glucose (Gluctose) 15 gm PO ONCE PRN PRN Reason: Hypoglycemia Stop: 01/06/20 16:55 Glucose (Gluctose) 30 gm PO ONCE PRN PRN Reason: Hypoglycemia Stop: 01/06/20 16:55 Dextrose (Dextrose 5%) 1,000 mls @ 100 mls/hr IVC .Q10H PRN PRN Reason: HYPOGLYCEMIA Stop: 01/06/20 16:55 Insulin Human Lispro (Humalog) 0 units SQ [facility]; Protocol Stop: 01/06/20 21:01 Last Admin: 07/11/19 20:20 Dose: Not Given Documented by: Insulin Human Lispro (Humalog) 0 units SQ TIDAC [facility]; Protocol Stop: 01/07/20 07:31 Last Admin: 07/12/19 07:49 Dose: 6 units Documented by: Isosorbide Mononitrate (Imdur) 30 mg PO DAILY [facility] Stop: 01/07/20 09:01 Last Admin: 07/12/19 07:48 Dose: 30 mg Documented by: Losartan Potassium (Cozaar) 25 mg PO DAILY [facility]; Protocol Stop: 01/07/20 09:01 Last Admin: 07/12/19 07:48 Dose: 25 mg Documented by: Metoprolol Tartrate (Lopressor) 50 mg PO BID [facility] Stop: 01/06/20 21:01 Last Admin: 07/12/19 07:48 Dose: 50 mg Documented by: Naloxone HCl (Narcan) 0.4 mg IVP Q2MPRN PRN PRN Reason: SEE COMMENTS Stop: 01/06/20 16:50 Nitroglycerin (Nitroglycerin) 0.4 mg SL Q5MIN PRN PRN Reason: Chest Pain Stop: 01/06/20 12:47 Laboratory Tests 07/11/19 07/12/19 07/12/19 03:52 04:10 04:10 Hgb 14.9 Creatinine 0.80 0.66 L - Imaging and Cardiology Chest Xray: report reviewed Stress Test: report reviewed Echo: report reviewed Cardiac cath: report reviewed - EKG Interpretation EKG results cardiology: other (Telemetry reviewed with average HR previous 12 hours noted to be 72, SR. PVCs, PACs noted.) Consult Discharge Plan - Plan Referrals: NONE,PCP [Primary Care Provider] -
[2019-07-12 11:12] VITALS: BP 142/93
--- NOTE | 2019-07-12 13:13 | Discharge Summary ---
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 use: without custodial use Diabetes mellitus complication status: with circulatory complication Diabetes mellitus complication detail: with other circulatory complications Qualified Code(s): E11.59 - Type 2 diabetes mellitus with other circulatory complications (3) Chest pain Status: Suspected Qualifiers: Chest pain type: chest pain due to myocardial ischemia Ischemic chest pain type: other angina pectoris type Qualified Code(s): I20.8 - Other forms of angina pectoris (4) Syncope Status: Resolved Qualifiers: Syncope type: unspecified Qualified Code(s): R55 - Syncope and collapse Hospital course: Mr. Wood is a 49 year old male - Time Spent with Patient Total time spent providing and/or coordinating discharge services: - Discharge Medications Prescriptions: New Clopidogrel [Plavix] 75 mg PO DAILY 30 Days #30 tablet Continued Metoprolol [Lopressor] 50 mg PO BID Atorvastatin [Lipitor] 80 mg PO HS Aspirin [Lo-Dose Aspirin EC] 81 mg PO DAILY Ranitidine HCl [Heartburn Relief] 150 mg PO HS Losartan Potassium 25 mg PO DAILY Isosorbide MONOnitrate (24 HR) [Imdur] 30 mg PO DAILY Home Medications: Aspirin [Lo-Dose Aspirin EC] 81 mg PO DAILY 10/07/17 [History] Atorvastatin [Lipitor] 80 mg PO HS 10/07/17 [History] Metoprolol [Lopressor] 50 mg PO BID 10/07/17 [History] Ranitidine HCl [Heartburn Relief] 150 mg PO HS 01/29/18 [History] Isosorbide MONOnitrate (24 HR) [Imdur] 30 mg PO DAILY 06/11/19 [History] Losartan Potassium 25 mg PO DAILY 06/11/19 [History] Clopidogrel [Plavix] 75 mg PO DAILY 30 Days #30 tablet 07/12/19 [Rx] Allergies/Adverse Reactions: Allergy/AdvReac Type Severity Reaction Status Date / Time Cyclobenzaprine Allergy Hallucinati Verified 06/10/19 22:21 [From Flexeril] ng Penicillins Allergy See Verified 06/10/19 22:21 Comments wellbutrin AdvReac Insomnia Uncoded 06/10/19 22:21 Date of admission: 07/07/19 16:27 Primary care physician: PCP NONE Consults: 07/08/19 11:45 Consult to Cardiology [CONS] Routine Comment: Consulting Provider: Cardiology Susie Reason for Consult: chest pain Was called last night Call Completed: Yes 07/11/19 15:27 Consult to Cardiac Rehabilitation-Phase1 [CONS] Routine Comment: Reason for Consult: post op PCI Call Completed: Yes - Constitutional Vitals: Temp Pulse Resp BP Pulse Ox 98.0 F 70 16 142/93 96 07/12/19 11:10 07/12/19 11:10 07/12/19 11:10 07/12/19 11:10 07/12/19 11:10 - Patient Status Disposition: Home, Self-Care Condition: Good - Discharge Instructions Instructions: Clopidogrel (By mouth), Chest Pain (DC), Syncope (DC), Diabetes Mellitus Type 2 in Adults (DC) Follow Up With: Odin Ramires MD [Partnered Physician] - (Cardio will call patient for an appt.) Get Patrick DO [Resident] - 07/14/19 9:30 am (Please follow up as schedule...) NONE,PCP [Primary Care Provider] - - Attending Attestation I examined this patient and my medical decision-making was reviewed with the Resident Physician Dr Ortiz. I agree with the documented findings, disposition and treatment plan as described except to the extent set forth below. Mr Wood was observed for carol pain, found to have obstructive CAD w stent placed this observation awake, family at bedside, no cp, pressure, sob or presyncope/syncope. right groin site without pain, bleeding, no RLE pain, numbness or tingling dc plan discussed in detail and all questions answered gen- alert, awake,appears stated age cv- reg rate and rhythm, normal s1,s2, no murmurs appreciated, no le edema lungs- ctabl, no wheezing, rhonchi or crackles, norm resp effort on room air neuro- AAOx3 CAD s/p PCI this admit- outpt cards fu, cont DAPT, home med regimen HTN- fu outpt cont meds as prescribed and up titrate as needed outpt syncope- no further episodes here, followed by cards, fu outpt further dx and plan as noted by resident time spent on dc 40 min <Og Ortiz - Last Filed: 07/12/19 15:47> - NOTES TO OUTPATIENT PROVIDER Notes to Outpatient Provider: Mr. Wood got an extensive workup for CC of syncope and chest pain, underwent left heart catheterization on 07/11 which found 3 of 5 coronary grafts were patent and during which a stent was placed. He will need dual antiplatelet therapy continuously for 1 year, needs to arrange follow- up with cardiology. Mr. Wood should continue aspirin, Plavix, statin, beta jessica, Imdur, as per recommendations of the sales and marketing analyst. Furthermore, investigations did not reveal noncardiac causes of his syncope, this will require further workup if it recurs. Date of Encounter: 07/12/19 Time of Encounter: 13:13 - Discharge Diagnosis (1) Chest pain Priority: Primary Status: Resolved Assessment and Plan: Mr. Wood states that his chest pain was steady at a 2 out of 10 for weeks to months before his incident of syncope, Chest pain is resolved at this time LHC on 07/11 showed 3 out of 5 bypass grafts patent, stent placed in first marginal artery Dual antiplatelet therapy initiated with aspirin and Plavix Continue dual antiplatelet therapy per recommendations of cardiology for at least 1 year Arrange close follow-up with cardiology as an outpatient Continue all other home medications, including statin, beta jessica, ranitidine, imdur, losartan Cardiac rehabilitation per recommendations of cardiology Qualifiers: Chest pain type: other chest pain Qualified Code(s): R07.89 - Other chest pain; R07.8 - Other chest pain (2) Syncope Priority: Secondary Status: Resolved Assessment and Plan: Etiology of the patient's syncope is unknown at this time Patient did not describe any shortness of breath dizziness or other prodromal symptoms before his syncopal episode Patient did not describe any loss of bladder bowel or bladder function and was not suffering from confusion or lethargy after the event, making seizure unlikely No sources of infection have been identified CT of the head and brain showed no acute intracranial abnormalities In the absence of other etiologies, cardiac issues seem the most likely explanation of his syncope Continue cardiac plan of care If recurrent episodes, consider consult to neurology for further workup of syncope Qualifiers: Syncope type: unspecified Qualified Code(s): R55 - Syncope and collapse (3) Diabetes mellitus type 2 in obese Priority: Secondary Status: Chronic Assessment and Plan: Patient states he has a history of intermittent compliance with diabetic regimen Significant recent psychosocial stressors have led to decreased compliance with his diet, and weight gain of 35 pounds since November At this time, patient seems aware of the need to be compliant with treatment regimen and lifestyle modifications, and seems motivated to make those changes Blood sugars this hospital stay have stayed around 250, with a single reading above 300 Follow up as outpatient with primary care provider for pharmacologic management of his diabetes Diet and exercise modifications as discussed with the patient here in the hospital (4) CAD (coronary artery disease) Priority: Secondary Status: Chronic Assessment and Plan: See assessment and plan for chest pain Qualifiers: Coronary Disease-Associated Artery/Lesion type: [place] artery [place] vs. transplanted heart: [place] heart Associated angina: with unspecified angina Qualified Code(s): I25.119 - Atherosclerotic heart disease of [place] coronary artery with unspecified angina pectoris (5) Hyperlipidemia Priority: Secondary Status: Chronic Assessment and Plan: Continue statin Qualifiers: Hyperlipidemia type: unspecified Qualified Code(s): E78.5 - Hyperlipidemia, unspecified (6) Hypertension Priority: Secondary Status: Chronic Assessment and Plan: Blood pressure has been well-controlled while he has been in the hospital, around 130s over 80s Continue current antihypertensive regimen Qualifiers: Hypertension type: essential hypertension Qualified Code(s): I10 - Essential (primary) hypertension Hospital course: Mr. Wood is a 49 year old male with significant past medical history of 5 vessel CABG/CAD/HTN/DM/HLD, who presented to our ED after suffering a syncopal episode in the context of mild chest pain for the last several weeks. Initial imaging performed showed no evidence of fractures, no evidence of intracranial bleed, no other intracranial abnormalities. EKG did not reveal acute ischemia, and troponins have been negative for the entirety of his hospital stay. Serial CBCs have been completely normal, serial chem panel also been significant only for very mild hyponatremia and blood sugars ranging from 200 to 330. * Echocardiogram had suboptimal findings due to body habitus, but estimated LVEF of 50-55%. Also noted in the echo were atypical septal motion consistent with postoperative status. * Patient underwent pharmacological stress test which showed some perfusion defects suggestive of ischemia without concurrent ECG changes and a gated ejection fraction of 48%. * Patient underwent a left heart catheterization yesterday, 07/11, which revealed 3 out of 5 bypass grafts were still patent, and during which one stent was placed. * Telemetry monitoring for the length of his stay did not reveal any significant arrhythmia events The patient's chest pain has resolved on exam this morning, plan to discharge with close cardiac follow-up I did discuss with the patient his recent psychosocial stressors which have led to a weight gain of 35 pounds since November, he does have a history of intermittent compliance with his diabetic treatment, but expressed desire to resume lifestyle modifications to improve his glycemic control, and cardiac conditioning Discharge discussed with: patient - Time Spent with Patient Total time spent providing and/or coordinating discharge services: Date of admission: 07/07/19 16:27 Primary care physician: PCP NONE Consults: 07/08/19 11:45 Consult to Cardiology [CONS] Routine Comment: Consulting Provider: Cardiology Susie Reason for Consult: chest pain Was called last night Call Completed: Yes 07/11/19 15:27 Consult to Cardiac Rehabilitation-Phase1 [CONS] Routine Comment: Reason for Consult: post op PCI Call Completed: Yes Discharging clinician: Og Ortiz Anticipated date of discharge: 07/12/19 - Constitutional Vitals: Temp Pulse Resp BP Pulse Ox 98.0 F 70 16 142/93 96 07/12/19 11:10 07/12/19 11:10 07/12/19 11:10 07/12/19 11:10 07/12/19 11:10 General appearance: Present: cooperative, A&O X 3, no acute distress, obese Exam: Gen: Awake and alert, no acute distress, obese, well kempt Head: Normocephalic, atraumatic Eyes: EOMI, no scleral icterus ENT: Mucous membranes moist, no oropharyngeal erythema CV: S1-S2 present, regular at a rate of approximately 65, no murmurs rubs or gallops Pulm: CTAB, not tachypneic, no respiratory distress, no increased work of breathing Abd: Soft, nontender to palpation, obese, nondistended, no rebound or guarding. Bowel sounds present EXT: Grossly intact motor strength in all 4 extremities, no lower extremity edema, no distal cyanosis or pallor Skin: Warm, dry, intact, no rashes or lesions noted Neuro: Cranial nerves II-XII grossly intact, no focal nurologic deficits Psych: normal mood and affect, Answers questions with intact judgement, appropriate insight, and linear thought - Patient Status Functional capacity at discharge: independent ambulation Overall status at discharge: patient is back to baseline - Diet and Activity Activity: as per the cardiac rehab Diet: diabetic diet
== END 2019-07-12 14:38 | disposition home or self-care (01) ==
LOC: EMEROOARM 11:07 → 3BNU 11:07 → SUATTDRO 16:27 → 3BNU 17:29 → 2ANU 07-11 18:54
PROVIDERS: ADMIT Internal Medicine; ATTEND Internal Medicine